=== PATIENT | female | born 1965 | race Hispanic/Latino ===

== ENCOUNTER 2017-01-28 21:31 | Inpatient (IN) | payer MEDICAID ==
[2017-01-28 21:31] VITALS: BMI 18.3
[2017-01-28 22:08] LABS: BASO # 0.1 K/uL (0.0-0.2); BASO % 0.9 % (0.0-2.0); EOS # 0.3 K/uL (0.0-0.7); EOS % 3.3 % (0.0-4.0); HEMATOCRIT 31.7 % (34.0-47.0); LYMPH # 3.4 K/uL (1.0-4.3); MEAN CELL VOLUME 88.2 fl (81.0-99.0); MEAN CORPUSCULAR HEMOGLOBIN 29.2 pg (27.0-31.0); MEAN CORPUSCULAR HGB CONC 33.1 g/dL (33.0-37.0); MEAN PLATELET VOLUME 7.6 fl (7.2-11.7); MONO # 1.1 K/uL (0.0-0.8); MONO % 13.7 % (0.0-10.0); NEUT # 3.1 K/uL (1.8-7.0); NEUT % 39.1 % (50.0-75.0); RED CELL DISTRIBUTION WIDTH 16.5 % (11.5-14.5); WHITE BLOOD COUNT 7.8 K/uL (4.8-10.8)
[2017-01-28 22:17] LABS: ALB/GLOB RATIO 1.2 (1.0-2.1); ALCOHOL SERUM 179 mg/dl (0-10); ALKALINE PHOSPHATASE 100 U/L (38-126); ALT/SGPT 26 U/L (9-52); AST/SGOT 41 U/L (14-36); BILIRUBIN,TOTAL 0.2 mg/dl (0.2-1.3); BLOOD UREA NITROGEN 14 mg/dl (7-17); CALCIUM 8.8 mg/dL (8.4-10.2); CARBON DIOXIDE 25 mmol/L (22-30); CHLORIDE 97 mmol/L (98-107); GFR AFRICAN-AMERICAN > 60; GLUCOSE,RANDOM 102 mg/dL (65-105); POTASSIUM 3.4 MMOL/L (3.6-5.0); SODIUM 133 mmol/l (132-148); TOTAL PROTEIN 7.2 G/DL (6.3-8.2)
[2017-01-28 22:47] LABS: THYROID STIMULATING HORMONE 2.25 mIU/ML (0.46-4.68)
[2017-01-28 23:12] LABS: RBC URINE 4 /hpf (0-3); URINE BACTERIA RARE (<OCC); URINE BILIRUBIN NEGATIVE (NEGATIVE); URINE BLOOD NEGATIVE (NEGATIVE); URINE COLOR STRAW (YELLOW); URINE GLUCOSE (UA) NEG (Normal); URINE KETONE NEGATIVE (NEGATIVE); URINE LEUKOCYTE ESTERASE TRACE Leu/uL (Negative); URINE PROTEIN NEGATIVE (NEGATIVE); URINE UROBILINOGEN 0.2-1.0 mg/dL (0.2-1.0); WBC URINE 1 /hpf (0-5)
--- NOTE | 2017-01-29 00:28 | ED PDOC ---
HPI: Psych/Substance Abuse Chief Complaint (Provider): anxouis Additional Complaint(s): 51-year-old female sent to ED by EMS from homeless [facility]-patient states she is very depressed and had 4-6 beers.PT is homeless admits to heavy drinking.denies SI/HI. <Marilia Buchanan - Last Filed: 01/29/17 01:51> <Loly Arriaga - Last Filed: 01/29/17 02:02> Time Seen by Provider: 01/29/17 00:01 Chief Complaint (Nursing): Chest Pain Past Medical History Reviewed: Historical Data, Nursing Documentation, Vital Signs Vital Signs: Last Vital Signs Temp 97.8 F 01/28/17 21:44 Pulse 91 H 01/28/17 22:43 Resp 28 H 01/28/17 21:44 BP 140/86 01/28/17 22:43 Pulse Ox 98 01/28/17 21:44 - Medical History PMH: Anxiety, Bipolar Disorder, CAD, Cardia Arrhythmia, Depression, HTN, Pneumonia, Schizophrenia, Seizures Denies: Diabetes, Hepatitis, HIV, Chronic Kidney Disease, Sexually Transmitted Disease - Surgical History Surgical History: Cholecystectomy - Family History Family History: States: Unknown Family Hx - Immunization History Hx Tetanus Toxoid Vaccination: No Hx Influenza Vaccination: Yes Hx Pneumococcal Vaccination: No <Marilia Buchanan - Last Filed: 01/29/17 01:51> Vital Signs: Last Vital Signs Temp 97.8 F 01/28/17 21:44 Pulse 91 H 01/28/17 22:43 Resp 28 H 01/28/17 21:44 BP 140/86 01/28/17 22:43 Pulse Ox 98 01/29/17 01:55 <Loly Arriaga - Last Filed: 01/29/17 02:02> - Home Medications Home Medications: Ambulatory Orders Medication Instructions Recorded Clopidogrel [Plavix] 75 mg PO DAILY #30 tab 01/14/17 Divalproex [Depakote DR(*BID*)] 500 mg PO BID #60 tcp 01/14/17 Divalproex [Depakote DR] 250 mg PO QPM #30 tcp 01/14/17 Gabapentin [Neurontin] 300 mg PO BID #60 cap 01/14/17 Oxybutynin [Ditropan Tab] 10 mg PO BID #60 tab 01/14/17 Gabapentin [Neurontin] 800 mg PO TID 01/28/17 traZODone [Desyrel] 150 mg PO HS 01/28/17 - Allergies Allergies/Adverse Reactions: Allergies Allergy/AdvReac Type Severity Reaction Status Date / Time FISH Allergy ITCHING Verified 01/10/17 08:59 Penicillins AdvReac URTICARIA Verified 01/10/17 08:59 Review of Systems ROS Statement: Except As Marked, All Systems Reviewed And Found Negative Gastrointestinal: Negative for: Nausea, Vomiting, Abdominal Pain <ChanelMarilia - Last Filed: 01/29/17 01:51> Physical Exam - Reviewed Nursing Documentation Reviewed: Yes Vital Signs Reviewed: Yes - Physical Exam Appears: Positive for: Non-toxic, Uncomfortable, In Acute Distress (very anxious , crying unable to control her emotional state) Head Exam: Positive for: ATRAUMATIC, NORMAL INSPECTION, NORMOCEPHALIC Skin: Positive for: Normal Color, Warm, DRY Eye Exam: Positive for: EOMI, Normal appearance, PERRL ENT: Positive for: Normal ENT Inspection Neck: Positive for: Normal, Painless ROM Cardiovascular/Chest: Positive for: Regular Rate, Rhythm Respiratory: Positive for: CNT, Normal Breath Sounds Gastrointestinal/Abdominal: Positive for: Normal Exam, Bowel Sounds, Soft Back: Positive for: Normal Inspection Extremity: Positive for: Normal ROM Neurologic/Psych: Positive for: Alert, Oriented, Mood/Affect (depressed, intoxicated) <Antionejose fMarilia - Last Filed: 01/29/17 01:51> - Laboratory Results Result Diagrams: 01/28/17 21:57 01/28/17 21:57 - ECG ECG Rhythm: Positive for: Sinus Rhythm Interpretation Of Abn EKG: prolonged QT Interpretation Of ECG: will repeat EKG rpeat EKG still shows prolonged QT. O2 Sat by Pulse Oximetry: 98 - Progress ED Course And Treament: will get labs to medically clear pt for crisis eval. Re-evaluation Time: 01:52 - Physician Consult Information Time Consulting Physican Contacted: 01:52 Physician Contacted: Cl Burr Outcome Of Conversation: Pt with significantly low magnesium level pt will need magnesium sulfate bolus at 4mg and admission to telemetry under Akilah Burr service. <Marilia Buchanan - Last Filed: 01/29/17 01:51> - Laboratory Results Result Diagrams: 01/28/17 21:57 01/28/17 21:57 <Loly Arriaga - Last Filed: 01/29/17 02:02> Medical Decision Making Medical Decision Making: pt placed on crepe maker in ED will be admitted to telemetry for severe hypo-magnesium <Marilia Buchanan - Last Filed: 01/29/17 01:51> Disposition - Patient ED Disposition Is Patient to be Admitted: Yes - Disposition Disposition Time: 01:54 - Pt Status Changed To: Hospital Disposition Of: Inpatient - Admit Certification Admit to Inpatient:: After my assessment, the patient will require hospitalization for at least two midnights. This is because of the severity of symptoms shown, intensity of services needed, and/or the medical risk in this patient being treated as an outpatient. <Marilia Buchanan - Last Filed: 01/29/17 01:51> <Loly Arriaga - Last Filed: 01/29/17 02:02> - Clinical Impression Clinical Impression: Hypomagnesemia, Prolonged QT interval - Disposition Condition: FAIR
[2017-01-29] MEDS ORDERED: Magnesium Sul 40GM/1L SW 1,000 ML IV ONE (02:36)
[2017-01-29] MEDS ORDERED: Pneumococcal 23-Valent Vaccine IM ONE (06:00)
[2017-01-29] MEDS ORDERED: Influenza Vaccine(5yr & older) 0.5 ML/45 MCG IM ONE (06:00)
[2017-01-29] MEDS: Enoxaparin 40 mg Syringe SC SCH (08:48)
[2017-01-29] MEDS: Divalproex 500 mg DR(BID formulation) PO SCH ×2 (08:50→21:51)
[2017-01-29 08:55] LABS: THYROID STIMULATING HORMONE 1.8 mIU/ML (0.46-4.68)
[2017-01-29] MEDS: levoFLOXacin 500 MG TAB PO SCH (11:52)
--- NOTE | 2017-01-29 15:13 | PCM.RRTMUL ---
LINE TENDER Nurse Assessment - Vital Signs Blood Pressure:: 159/92 Pulse Rate:: 114 Respiratory Rate:: 18 Temperature:: 97.7 F Responder Note - Time LINE TENDER was called Time LINE TENDER was called:: 14:50 - Location Location: 404-1 Discovered by:: RN Primary Physician:: Cl Burr - LINE TENDER Team LINE TENDER Leader:: Shola Marsh Resident:: Ab Regalado - Chest Pain Chest Pain:(If answer is yes, complete next 2 questions): Yes Location:: Sternal Pain Intensity: 7 - Neurological Status Neurological Status (Select all that apply):: Alert, Responsive, Oriented, Verbal, Follows Commands - Respiratory LINE TENDER Delivery Method:: Nasal Cannula @L/min (2) - Gastro-Intestinal Current Diet Ordered: Current Diet 01/29/17 Breakfast Regular Diet [DIET] Summary - Summary of Event Summary of Event: LINE TENDER CALLED FOR CHEST PAIN S: Patient is a homeless 51 yo F with PMHx of bipolar disorder, etoh abuse, HTN , CAD, Seizures that was admitted for severe hypo-magnesium/prolonged QT interval that has been having chest pressure/pain that was present in ED, and worsened prior to LINE TENDER. Patient states some shortness of breath and feels very anxious. Patient's pain is 7/10 non-radiating, worse with deep breathing. Patient has been having a cough for about a week, states hacking. Patient's admitting doctor, Dr. Burr, ordered CXR and levaquin was started. Patient's hypo -magnesium improved with treatment. O: Vitals stable except for BP 190/110 General: Mild distress, anxious appearing Head: normocephalic, atraumatic Cardio: RRR, S1/S2 present, no m/r/g Lungs: CTABL, no wheezes/rales Chest: tenderness to palpation of left sternal border Abdomen: soft, non-distended, BS+ Extremities: no edema A/P: 51 yo F with PMHx of bipolar disorder, etoh abuse, HTN, CAD, Seizures with chest pain likely due to musculoskeletal origin possibly from excessive coughing. - EKG Stat : NSR, no acute changes or prolonged qt - Troponin STAT - O2 via NC @ 2L - Thiamine/folic acid supplementation - Hydralazine 10mg x 2, BP improved to 160/90 - Ativan 1mg PO stat - Morphine 1mg IVP stat - Patient's pain/symptoms improved as well as BP. - Dr. Burr notified All above discussed and evaluated with [id number].
[2017-01-29] MEDS: Divalproex 250 mg DR(BID formulation) PO SCH ×2 (16:39→17:32)
[2017-01-30 07:09] LABS: HEMATOCRIT 32.8 % (34.0-47.0); MEAN CELL VOLUME 88.8 fl (81.0-99.0); MEAN CORPUSCULAR HEMOGLOBIN 29.3 pg (27.0-31.0); RED CELL DISTRIBUTION WIDTH 16.7 % (11.5-14.5); WHITE BLOOD COUNT 6.6 K/uL (4.8-10.8)
[2017-01-30 07:20] LABS: ALB/GLOB RATIO 1.1 (1.0-2.1); ALKALINE PHOSPHATASE 59 U/L (38-126); ALT/SGPT 25 U/L (9-52); AST/SGOT 27 U/L (14-36); BILIRUBIN,TOTAL 0.4 mg/dl (0.2-1.3); BLOOD UREA NITROGEN 13 mg/dl (7-17); CALCIUM 8.8 mg/dL (8.4-10.2); CARBON DIOXIDE 27 mmol/L (22-30); CHLORIDE 100 mmol/L (98-107); GFR AFRICAN-AMERICAN > 60; GLUCOSE,RANDOM 88 mg/dL (65-105); POTASSIUM 4.1 MMOL/L (3.6-5.0); SODIUM 132 mmol/l (132-148); TOTAL PROTEIN 6.2 G/DL (6.3-8.2)
[2017-01-30] MEDS: Divalproex 500 mg DR(BID formulation) PO SCH ×2 (08:55→21:18)
[2017-01-30] MEDS: levoFLOXacin 500 MG TAB PO SCH (08:58)
[2017-01-30] MEDS: Enoxaparin 40 mg Syringe SC SCH (08:59)
--- NOTE | 2017-01-30 10:16 | RAD ---
HISTORY: chest discomfort COMPARISON: No prior. TECHNIQUE: Chest PA and lateral FINDINGS: LUNGS: Poor inspiration with low lung volumes crowded bronchovascular markings and mild bibasilar atelectasis PLEURA: No significant pleural effusion identified. No pneumothorax apparent. CARDIOVASCULAR: Normal. OSSEOUS STRUCTURES: Chronic appearing anterior wedge deformity of several thoracic segments. Mild multilevel degenerative spondylosis of the thoracic spine VISUALIZED UPPER ABDOMEN: Normal. OTHER FINDINGS: None. IMPRESSION: Poor inspiration with low lung volumes crowded bronchovascular markings and mild bibasilar atelectasis
--- NOTE | 2017-01-30 10:43 | PN ---
DATE: 01/30/2017 The patient seen and examined. Interim events noted. The patient feels much better, substantively i mproved. No chest pain, no shortness of breath. PHYSICAL EXAMINATION: . HEART: S1, S2 normal, regular. LUNGS: Good bilateral air exchange. ABDOMEN: Soft, nontender. EXTREMITIES: No calf swelling, no tenderness, no acute ischemia. CENTRAL NERVOUS SYSTEM: Essentially unchanged. DIAGNOSTIC DATA: Telemetry monitoring does not show any arrhythmias. The patient's general condition is slowly improving. PLAN: As ordered. Cl Burr MD cc: [id number] TT: 01/30/2017 10:42:41 Confirmation # [id number] Dictation # [id number] [email or web address]
[2017-01-30] MEDS: Divalproex 250 mg DR(BID formulation) PO SCH (17:28)
--- NOTE | 2017-01-30 20:13 | CARD ---
APPROVED REPORT EKG Measurement Heart [id number] HI [id number] <Conclusion> Normal sinus rhythm Normal ECG
[2017-01-31 06:55] LABS: HEMATOCRIT 31.5 % (34.0-47.0); MEAN CELL VOLUME 88.3 fl (81.0-99.0); MEAN CORPUSCULAR HEMOGLOBIN 29.5 pg (27.0-31.0); MEAN CORPUSCULAR HGB CONC 33.4 g/dL (33.0-37.0); RED CELL DISTRIBUTION WIDTH 16.7 % (11.5-14.5); WHITE BLOOD COUNT 5.3 K/uL (4.8-10.8)
[2017-01-31 07:30] LABS: ALKALINE PHOSPHATASE 57 U/L (38-126); ALT/SGPT 23 U/L (9-52); AST/SGOT 28 U/L (14-36); BILIRUBIN,TOTAL 0.2 mg/dl (0.2-1.3); BLOOD UREA NITROGEN 16 mg/dl (7-17); CALCIUM 8.7 mg/dL (8.4-10.2); CARBON DIOXIDE 24 mmol/L (22-30); CHLORIDE 98 mmol/L (98-107); GFR AFRICAN-AMERICAN > 60; GLUCOSE,RANDOM 85 mg/dL (65-105); POTASSIUM 4.3 MMOL/L (3.6-5.0); SODIUM 127 mmol/l (132-148); TOTAL PROTEIN 5.9 G/DL (6.3-8.2)
--- NOTE | 2017-01-31 08:02 | PN ---
DATE: 01/31/2017 The patient seen and examined. Interim events noted. The patient remains in progressive care unit o n telemetry monitoring. The patient is sleeping, arousable. Feels better. Cough improved. No ches t pain or shortness of breath. PHYSICAL EXAMINATION: GENERAL: The patient is in no acute distress. VITAL SIGNS: Stable. HEART: S1, S2 normal, regular. LUNGS: Good bilateral air exchange. ABDOMEN: Soft, nontender. EXTREMITIES: No edema, no calf swelling, no tenderness, no acute ischemia. CENTRAL NERVOUS SYSTEM: Essentially unchanged. DIAGNOSTIC DATA: Available diagnostic data reviewed. Overall, patient's general medical condition is stable. PLAN: As ordered. Cl Burr MD cc: [id number] TT: 01/31/2017 08:01:38 Confirmation # [id number] Dictation # [id number] [email or web address]
--- NOTE | 2017-01-31 08:31 | HP ---
CHIEF COMPLAINT: Very anxious. HISTORY OF PRESENT ILLNESS: This is a 51-year-old female who was brought to the Emergency Room from a homeless intermediate after found being very anxious. During workup in the Emergency Room, the patient was found to have a magnesium level less than , so the patient was admitted for further manageme nt. Currently, the patient complains of sore throat, cough, and anxiety. REVIEW OF SYSTEMS: Otherwise, is negative for headache, dizziness, syncope, loss of consciousness, c hest pain, shortness of breath, nausea, vomiting, diarrhea, constipation, any new joint or extremity pain. Review of systems of all other organ systems is unremarkable except psych where the patient do es feel anxious. PAST MEDICAL HISTORY: Significant for anxiety, bipolar disorder, hypertension, depression, cardiac a rrhythmia, coronary artery disease, schizophrenia, and seizures. PAST SURGICAL HISTORY: Remarkable for cholecystectomy. FAMILY HISTORY: Noncontributory. PERSONAL HISTORY: The patient is homeless and lives in a intermediate. ALLERGIES: The patient is not allergic to any medications. MEDICATIONS: The patient is on multiple medications, which is as per reconciliation sheet, which was reviewed and ordered. PHYSICAL EXAMINATION: GENERAL: Well-built, well-nourished 51-year-old female in no acute distress. VITAL SIGNS: Temperature 97.7, pulse 100, respiration 18, blood pressure 159/92, saturation 97%. HEENT: Pupils reacting to light. NECK: No JVD, no thyromegaly, no lymphadenopathy, no nystagmus. Normocephalic, atraumatic skull. HEART: S1, S2 normal, regular, tachycardic. No significant murmur, gallop, or rub is heard. LUNGS: Shows good bilateral air exchange. No rales or rhonchi. ABDOMEN: Soft, nontender, no organomegaly, no fluid. Bowel sounds are positive. EXTREMITIES: No edema, no calf swelling, no tenderness, no acute ischemia. CENTRAL NERVOUS SYSTEM: Essentially unchanged. DIAGNOSTIC DATA: Available diagnostic data reviewed. Magnesium level was less than . WBC 7.8, hemoglobin 10.5, hematocrit 31.7, platelets 230. Sodium 132, potassium 3.4, chloride 97, bicarbonat e 25, BUN 14, creatinine 0.7. SMA-12 is unremarkable. Urinalysis is negative. Toxicology is negati ve. Depakote level is 35.7. Alcohol level is 179. ADMITTING IMPRESSION: Hypomagnesemia. Alcohol abuse, watch for DTs, bipolar disorder, hypertension, coronary artery disease, cardiac arrhythmias. Telemetry monitoring does not reveal significant arrhythmias. PLAN: As ordered. Cl Burr MD cc: [id number] TT: 01/29/2017 16:54:41 ln
[2017-01-31] MEDS: Enoxaparin 40 mg Syringe SC SCH (09:15)
[2017-01-31] MEDS: levoFLOXacin 500 MG TAB PO SCH (09:15)
[2017-01-31] MEDS: Divalproex 500 mg DR(BID formulation) PO SCH ×2 (09:18→20:11)
--- NOTE | 2017-01-31 11:02 | CP.PCM.CON ---
History of Present Illness - History of Present Illness History of Present Illness: Psychiatry consult note called for evaluation of suicidal ideation HPI: 51-year-old female with extensive history of alcohol abuse and cocaine abuse, h/o bipolar disorder vs borderline personality disorder , presented to the ED with chest pain, found to be hyponatremic, had 10 admissions since September 2016 for various reasons, including alcohol abuse, cocaine abuse. Patient does not report any active suicidal ideation/plan/ intent. She does express a desire to stay in the hospital until ( possibly secondary to homelessness and impending blizzard). She reports that she drank alcohol two days ago and feels like a failure. Patient is requesting Ativan, stating that it makes her feel better. Patient acknowledges that another psychiatric admission will likely not benefit her as her stress is due to homelessness, poverty, substance abuse and family problems. Past psychiatric history: She was diagnosed with bipolar disorder, but given her history, her presentation is more likely borderline personality disorder with alcohol and cocaine abuse. The patient has history of more than 10 inpatient psychiatric hospitalizations and one incomplete attempt in the past when patient tried to hang herself. Patient also has a long history of etoh abuse. Patients longest period of sobriety is from [id number]. As per the patient she has completed a 9 month stay at [facility] 3 years ago. Past medical history: History of coronary artery disease. Family psych history: Depression and anxiety; uncle committed suicide. Social history: +adult children, currently homeless and living at a [facility] with her boyfriend. She is unemployed. +Extensive history of alcohol abuse and cocaine abuse. MSE: Alert and oriented x 3, good eye contact, thought process-linear/coherent, speech- normal rate/rhythm/volume, thought content- no delusions/paranoia. No hallucinations. No suicidal ideation/plan/intent. No homicidal ideation plan/ intent. Insight/judgment poor re: chronic alcohol and cocaine abuse. Impression: 51-year-old female with extensive history of alcohol abuse and cocaine abuse, h/o bipolar disorder vs borderline personality disorder, presented to the ED with chest pain, found to be hyponatremic, had 10 admissions since September 2016 for various reasons, including alcohol abuse, cocaine abuse. Patient likely seeking psychiatric admission for the secondary gain of housing/food due to homelessness. Her primary illness is Alcohol abuse and likely borderline personality disorder. She is not reporting any active suicidal ideation/plan/intent at this time. Recommendations: -Would continue current psychotropic medications -Patient does not need inpatient psychiatric treatment at this time; patient has intensive outpatient program scheduled to start on -Re-consult w/ further questions Past Patient History - Infectious Disease Hx of Infectious Diseases: None - Past Medical History & Family History Past Medical History?: Yes - Past Social History Smoking Status: Light Smoker < 10 Cigarettes Daily - CARDIAC Hx Cardiac Disorders: Yes Hx Cardia Arrhythmia: Yes Hx Heart Attack: Yes (2007) Hx Hypertension: Yes - PULMONARY Hx Pneumonia: Yes - NEUROLOGICAL Hx Seizures: Yes - HEENT Hx HEENT Problems: No - RENAL Hx Chronic Kidney Disease: No - ENDOCRINE/METABOLIC Hx Endocrine Disorders: No - HEMATOLOGICAL/ONCOLOGICAL Hx AIDS: No Hx Blood Transfusions: No Hx Human Immunodeficiency Virus (HIV): No - INTEGUMENTARY Hx Dermatological Problems: No - MUSCULOSKELETAL/RHEUMATOLOGICAL Hx Falls: Yes Hx Fractures: Yes (right wrist due to fall) - GASTROINTESTINAL Hx Gastrointestinal Disorders: No - GENITOURINARY/GYNECOLOGICAL Hx Sexually Transmitted Disorders: No - PSYCHIATRIC Hx Psychophysiologic Disorder: Yes Hx Anxiety: Yes Hx Bipolar Disorder: Yes Hx Depression: Yes Hx Substance Use: Yes (cocaine) - SURGICAL HISTORY Hx Surgeries: Yes Hx Cholecystectomy: Yes Hx Tubal Ligation: Yes - ANESTHESIA Hx Anesthesia: Yes Hx Anesthesia Reactions: No Hx Malignant Hyperthermia: No Meds Allergies/Adverse Reactions: Allergies Allergy/AdvReac Type Severity Reaction Status Date / Time FISH Allergy ITCHING Verified 01/10/17 08:59 Penicillins AdvReac URTICARIA Verified 01/10/17 08:59 - Medications Medications: Current Medications Chlordiazepoxide (Librium) 25 mg PO Q6 [facility] Last Admin: 01/31/17 10:14 Dose: 25 mg Clopidogrel Bisulfate (Plavix) 75 mg PO DAILY [facility] Last Admin: 01/31/17 09:18 Dose: 75 mg Divalproex Sodium (Depakote Dr(*Bid*)) 250 mg PO QPM [facility] Last Admin: 01/30/17 17:28 Dose: 250 mg Divalproex Sodium (Depakote Dr(*Bid*)) 500 mg PO Q12 [facility] Last Admin: 01/31/17 09:18 Dose: 500 mg Enoxaparin Sodium (Lovenox) 40 mg SC DAILY [facility] PRN Reason: Protocol Last Admin: 01/31/17 09:15 Dose: 40 mg Folic Acid (Folic Acid) 1 mg PO DAILY [facility] Last Admin: 01/30/17 08:56 Dose: 1 mg Gabapentin (Neurontin) 800 mg PO TID [facility] Last Admin: 01/31/17 09:15 Dose: 800 mg Ibuprofen (Motrin Tab) 400 mg PO Q6 PRN PRN Reason: Pain, Mild (1-3) Last Admin: 01/30/17 16:40 Dose: 400 mg Levofloxacin (Levaquin) 500 mg PO DAILY [facility] Stop: 02/02/17 11:55 Last Admin: 01/31/17 09:15 Dose: 500 mg Oxybutynin Chloride (Ditropan Tab) 10 mg PO BID [facility] Last Admin: 01/31/17 09:15 Dose: 10 mg Thiamine HCl (Vitamin B1 Tab) 100 mg PO DAILY [facility] Last Admin: 01/31/17 09:19 Dose: 100 mg Trazodone HCl (Desyrel) 150 mg PO HS [facility] Last Admin: 01/30/17 21:18 Dose: 150 mg Results - Vital Signs Recent Vital Signs: Last Vital Signs Temp 97.8 F 01/31/17 08:00 Pulse 66 01/31/17 08:00 Resp 20 01/31/17 08:00 BP 130/77 01/31/17 08:00 Pulse Ox 95 01/31/17 08:00 - Labs Result Diagrams: 01/31/17 06:05 01/31/17 06:05 Labs: Laboratory Results - last 24 hr 01/31/17 06:05 WBC 5.3 RBC 3.57 L Hgb 10.5 L Hct 31.5 L MCV 88.3 MCH 29.5 MCHC 33.4 RDW 16.7 H Plt Count 194 Sodium 127 L Potassium 4.3 Chloride 98 Carbon Dioxide 24 Anion Gap 9 L BUN 16 Creatinine 0.6 L Est GFR ( Amer) > 60 Est GFR (Non-Af Amer) > 60 Random Glucose 85 Calcium 8.7 Total Bilirubin 0.2 AST 28 ALT 23 Alkaline Phosphatase 57 Total Protein 5.9 L Albumin 3.0 L Globulin 2.9 Albumin/Globulin Ratio 1.0
[2017-01-31] MEDS: Divalproex 250 mg DR(BID formulation) PO SCH (18:16)
[2017-02-01] MEDS: Divalproex 500 mg DR(BID formulation) PO SCH ×2 (08:59→21:13)
[2017-02-01] MEDS: Enoxaparin 40 mg Syringe SC SCH (09:02)
[2017-02-01] MEDS: levoFLOXacin 500 MG TAB PO SCH (09:02)
[2017-02-01 10:46] LABS: BLOOD UREA NITROGEN 22 mg/dl (7-17); CALCIUM 8.5 mg/dL (8.4-10.2); CARBON DIOXIDE 24 mmol/L (22-30); CHLORIDE 97 mmol/L (98-107); GFR AFRICAN-AMERICAN > 60; GLUCOSE,RANDOM 96 mg/dL (65-105); POTASSIUM 4.2 MMOL/L (3.6-5.0); SODIUM 127 mmol/l (132-148)
--- NOTE | 2017-02-01 11:17 | PQF GENQUE ---
This form is a permanent part of the medical record 02/01/17 , Would you please clarify if there is an associated diagnosis or not to go along with the NA level of 127. Clarification of your documentation is requested to better reflect the severity of illness and intensity of treatment of your patient. PHYSICIAN'S RESPONSE Based on your medical judgment of the clinical indicators outlined above please clarify the following: [] Practitioner response [] If unable to determine, please check the box, sign and date. Present On Admission (POA) Indicator: [] Present at the time of admission [] Not present at the time of admission [] Clinically Undetermined In responding to this query, please exercise your independent professional judgment. The fact that a question is asked does not imply that any particular answer is desired or expected. Thank you for your clarification on this documentation. If you have any questions please call:[phone] * Thank you, Alisson Vaughn RN [facility]
--- NOTE | 2017-02-01 12:28 | CP.PCM.PN ---
Subjective - Date & Time of Evaluation Date of Evaluation: 02/01/17 Time of Evaluation: 08:00 - Subjective Subjective: Pt seen and examined at bedside, laying in bed comfortably, states she feels depressed and has a program for it. Objective - Vital Signs/Intake and Output Vital Signs (last 24 hours): Temp Pulse Resp BP Pulse Ox 98.7 F 65 20 111/65 97 02/01/17 08:24 02/01/17 09:00 02/01/17 08:24 02/01/17 08:24 02/01/17 08:24 - Medications Medications: Current Medications Chlordiazepoxide (Librium) 25 mg PO Q8 [facility] Clopidogrel Bisulfate (Plavix) 75 mg PO DAILY [facility] Last Admin: 02/01/17 09:03 Dose: 75 mg Divalproex Sodium (Depakote Dr(*Bid*)) 250 mg PO QPM [facility] Last Admin: 01/31/17 18:16 Dose: 250 mg Divalproex Sodium (Depakote Dr(*Bid*)) 500 mg PO Q12 [facility] Last Admin: 02/01/17 08:59 Dose: 500 mg Enoxaparin Sodium (Lovenox) 40 mg SC DAILY [facility] PRN Reason: Protocol Last Admin: 02/01/17 09:02 Dose: 40 mg Folic Acid (Folic Acid) 1 mg PO DAILY [facility] Last Admin: 02/01/17 09:02 Dose: 1 mg Gabapentin (Neurontin) 800 mg PO TID [facility] Last Admin: 02/01/17 09:02 Dose: 800 mg Ibuprofen (Motrin Tab) 400 mg PO Q6 PRN PRN Reason: Pain, Mild (1-3) Last Admin: 02/01/17 09:03 Dose: 400 mg Levofloxacin (Levaquin) 500 mg PO DAILY [facility] Stop: 02/02/17 11:55 Last Admin: 02/01/17 09:02 Dose: 500 mg Oxybutynin Chloride (Ditropan Tab) 10 mg PO BID [facility] Last Admin: 02/01/17 09:00 Dose: 10 mg Thiamine HCl (Vitamin B1 Tab) 100 mg PO DAILY [facility] Last Admin: 02/01/17 09:03 Dose: 100 mg Trazodone HCl (Desyrel) 150 mg PO HS [facility] Last Admin: 01/31/17 21:21 Dose: 150 mg - Labs Labs: 01/31/17 06:05 02/01/17 09:55 - Constitutional Appears: Non-toxic, No Acute Distress - Respiratory Exam Respiratory Exam: Clear to Ausculation Bilateral, NORMAL BREATHING PATTERN - Cardiovascular Exam Cardiovascular Exam: REGULAR RHYTHM, +S1, +S2 - GI/Abdominal Exam GI & Abdominal Exam: Soft, Normal Bowel Sounds - Extremities Exam Extremities Exam: absent: Calf Tenderness, Joint Swelling, Pedal Edema, Tenderness - Neurological Exam Neurological Exam: Awake, Oriented x3 - Psychiatric Exam Psychiatric exam: Flat Affect Assessment and Plan - Assessment and Plan (Free Text) Assessment: 51 y.o female admitted for hypomagnesium and depression Plan: 1. Hypomagnesium - level now elevated will monitor and repeat level in the am 2. Depression psy consult appreciated will continue with plan manage as ordered diet-heart healthy dvt prophylaxis lovenox SC 40mg
[2017-02-01] MEDS: Divalproex 250 mg DR(BID formulation) PO SCH (17:54)
[2017-02-02 06:40] LABS: MEAN CELL VOLUME 89.4 fl (81.0-99.0); MEAN CORPUSCULAR HEMOGLOBIN 29.3 pg (27.0-31.0); MEAN CORPUSCULAR HGB CONC 32.8 g/dL (33.0-37.0); RED CELL DISTRIBUTION WIDTH 16.5 % (11.5-14.5); WHITE BLOOD COUNT 5.4 K/uL (4.8-10.8)
[2017-02-02 06:44] LABS: ALKALINE PHOSPHATASE 65 U/L (38-126); ALT/SGPT 22 U/L (9-52); AST/SGOT 26 U/L (14-36); BILIRUBIN,TOTAL 0.1 mg/dl (0.2-1.3); BLOOD UREA NITROGEN 22 mg/dl (7-17); CALCIUM 8.3 mg/dL (8.4-10.2); CARBON DIOXIDE 24 mmol/L (22-30); CHLORIDE 96 mmol/L (98-107); GFR AFRICAN-AMERICAN > 60; GLUCOSE,RANDOM 85 mg/dL (65-105); MAGNESIUM 1.8 MG/DL (1.6-2.3); POTASSIUM 4.1 MMOL/L (3.6-5.0); SODIUM 129 mmol/l (132-148); TOTAL PROTEIN 5.7 G/DL (6.3-8.2)
--- NOTE | 2017-02-02 09:22 | CP.PCM.CON ---
History of Present Illness - History of Present Illness History of Present Illness: 51-year-old female sent to ED by EMS from homeless long-term- patient states she is very depressed and had 4-6 beers .PT is homeless admits to heavy drinking.denies SI/HI. PMH: Anxiety, Bipolar Disorder, Depression, HTN, Pneumonia, Schizophrenia, Seizures - Surgical History Surgical History: Cholecystectomy EKG: normal Troponin: neg Pt claims she had chest pressure prior to admission alleviated when she got to the ER Says she had a Heart Attack 5-6 years ago refused catherization has had no chest pain since then Past Patient History - Infectious Disease Hx of Infectious Diseases: None - Past Medical History & Family History Past Medical History?: Yes - Past Social History Smoking Status: Light Smoker < 10 Cigarettes Daily - CARDIAC Hx Cardiac Disorders: Yes Hx Cardia Arrhythmia: Yes Hx Heart Attack: Yes (2007) Hx Hypertension: Yes - PULMONARY Hx Pneumonia: Yes - NEUROLOGICAL Hx Seizures: Yes - HEENT Hx HEENT Problems: No - RENAL Hx Chronic Kidney Disease: No - ENDOCRINE/METABOLIC Hx Endocrine Disorders: No - HEMATOLOGICAL/ONCOLOGICAL Hx AIDS: No Hx Blood Transfusions: No Hx Human Immunodeficiency Virus (HIV): No - INTEGUMENTARY Hx Dermatological Problems: No - MUSCULOSKELETAL/RHEUMATOLOGICAL Hx Falls: Yes Hx Fractures: Yes (right wrist due to fall) - GASTROINTESTINAL Hx Gastrointestinal Disorders: No - GENITOURINARY/GYNECOLOGICAL Hx Sexually Transmitted Disorders: No - PSYCHIATRIC Hx Psychophysiologic Disorder: Yes Hx Anxiety: Yes Hx Bipolar Disorder: Yes Hx Depression: Yes Hx Substance Use: Yes (cocaine) - SURGICAL HISTORY Hx Surgeries: Yes Hx Cholecystectomy: Yes Hx Tubal Ligation: Yes - ANESTHESIA Hx Anesthesia: Yes Hx Anesthesia Reactions: No Hx Malignant Hyperthermia: No Meds Allergies/Adverse Reactions: Allergies Allergy/AdvReac Type Severity Reaction Status Date / Time FISH Allergy ITCHING Verified 01/10/17 08:59 Penicillins AdvReac URTICARIA Verified 01/10/17 08:59 - Medications Medications: Current Medications Chlordiazepoxide (Librium) 25 mg PO Q8 [facility] Last Admin: 02/02/17 05:46 Dose: Not Given Clopidogrel Bisulfate (Plavix) 75 mg PO DAILY [facility] Last Admin: 02/01/17 09:03 Dose: 75 mg Divalproex Sodium (Depakote Dr(*Bid*)) 250 mg PO QPM [facility] Last Admin: 02/01/17 17:54 Dose: 250 mg Divalproex Sodium (Depakote Dr(*Bid*)) 500 mg PO Q12 [facility] Last Admin: 02/01/17 21:13 Dose: 500 mg Enoxaparin Sodium (Lovenox) 40 mg SC DAILY [facility] PRN Reason: Protocol Last Admin: 02/01/17 09:02 Dose: 40 mg Folic Acid (Folic Acid) 1 mg PO DAILY [facility] Last Admin: 02/01/17 09:02 Dose: 1 mg Gabapentin (Neurontin) 800 mg PO TID [facility] Last Admin: 02/01/17 16:44 Dose: 800 mg Ibuprofen (Motrin Tab) 400 mg PO Q6 PRN PRN Reason: Pain, Mild (1-3) Last Admin: 02/01/17 16:45 Dose: 400 mg Levofloxacin (Levaquin) 500 mg PO DAILY [facility] Stop: 02/02/17 11:55 Last Admin: 02/01/17 09:02 Dose: 500 mg Oxybutynin Chloride (Ditropan Tab) 10 mg PO BID [facility] Last Admin: 02/01/17 16:44 Dose: 10 mg Thiamine HCl (Vitamin B1 Tab) 100 mg PO DAILY [facility] Last Admin: 02/01/17 09:03 Dose: 100 mg Trazodone HCl (Desyrel) 150 mg PO HS [facility] Last Admin: 02/01/17 21:14 Dose: 150 mg Results - Vital Signs Recent Vital Signs: Last Vital Signs Temp 97.5 F L 02/02/17 08:00 Pulse 65 02/02/17 08:00 Resp 20 02/02/17 08:00 BP 133/83 02/02/17 08:00 Pulse Ox 96 02/02/17 08:00 - Labs Result Diagrams: 02/02/17 06:00 02/02/17 06:00 Labs: Laboratory Results - last 24 hr 02/01/17 02/02/17 09:55 06:00 WBC 5.4 RBC 3.47 L Hgb 10.2 L Hct 31.0 L MCV 89.4 MCH 29.3 MCHC 32.8 L RDW 16.5 H Plt Count 188 Sodium 127 L 129 L Potassium 4.2 4.1 Chloride 97 L 96 L Carbon Dioxide 24 24 Anion Gap 10 13 BUN 22 H 22 H Creatinine 0.6 L 0.6 L Est GFR ( Amer) > 60 > 60 Est GFR (Non-Af Amer) > 60 > 60 Random Glucose 96 85 Calcium 8.5 8.3 L Magnesium 1.8 1.8 Total Bilirubin 0.1 L AST 26 ALT 22 Alkaline Phosphatase 65 Total Protein 5.7 L Albumin 2.9 L Globulin 2.9 Albumin/Globulin Ratio 1.0 Assessment & Plan (1) Alcohol abuse Status: Removed (3) Alcohol intoxication Status: Acute (4) Muscle strain of chest wall Assessment and Plan: Doubt that this episode of chest pain is cardiac in origin if symptoms continue would suggest stress test as outpt Status: Acute
[2017-02-02] MEDS: Enoxaparin 40 mg Syringe SC SCH ×2 (10:18→11:39)
[2017-02-02] MEDS: Divalproex 500 mg DR(BID formulation) PO SCH ×2 (10:19→21:32)
[2017-02-02] MEDS: levoFLOXacin 500 MG TAB PO SCH (10:22)
--- NOTE | 2017-02-02 12:06 | RAD ---
HISTORY: coughing blood COMPARISON: No prior. TECHNIQUE: Chest PA and lateral FINDINGS: LUNGS: No active pulmonary disease. PLEURA: No significant pleural effusion identified. No pneumothorax apparent. CARDIOVASCULAR: Normal. OSSEOUS STRUCTURES: No significant abnormalities. VISUALIZED UPPER ABDOMEN: Normal. OTHER FINDINGS: None. IMPRESSION: No active disease.
--- NOTE | 2017-02-02 12:29 | CP.PCM.PN ---
Subjective - Date & Time of Evaluation Date of Evaluation: 02/02/17 Time of Evaluation: 08:20 - Subjective Subjective: Pt seen and examined at bedside this morning with Dr. Burr, pt stated this morning, chest pain has improved but not completely resolved, and was doing well. denies coughing, sob, abdominal pain, headache. stated she wanted to be discharged to the psy telles at [facility] as she needed to get her mind right. Later this morning, i was paged by nurse as pt reports coughing up blood specs, nurse did not observe pt actually coughing up the blood, but states she showed her a blood stain tissue. She was also seen by cardiology this morning, where she reported she has not had chest pain since admission. Objective - Vital Signs/Intake and Output Vital Signs (last 24 hours): Temp Pulse Resp BP Pulse Ox 97.5 F L 65 20 133/83 96 02/02/17 08:00 02/02/17 09:00 02/02/17 08:00 02/02/17 08:00 02/02/17 08:00 - Medications Medications: Current Medications Chlordiazepoxide (Librium) 25 mg PO Q8 [facility] Last Admin: 02/02/17 10:23 Dose: Not Given Clopidogrel Bisulfate (Plavix) 75 mg PO DAILY [facility] Last Admin: 02/02/17 10:18 Dose: 75 mg Divalproex Sodium (Depakote Dr(*Bid*)) 250 mg PO QPM [facility] Last Admin: 02/01/17 17:54 Dose: 250 mg Divalproex Sodium (Depakote Dr(*Bid*)) 500 mg PO Q12 [facility] Last Admin: 02/02/17 10:19 Dose: 500 mg Enoxaparin Sodium (Lovenox) 40 mg SC DAILY [facility] PRN Reason: Protocol Last Admin: 02/02/17 11:39 Dose: Not Given Folic Acid (Folic Acid) 1 mg PO DAILY [facility] Last Admin: 02/02/17 10:21 Dose: 1 mg Gabapentin (Neurontin) 800 mg PO TID [facility] Last Admin: 02/02/17 10:19 Dose: 800 mg Ibuprofen (Motrin Tab) 400 mg PO Q6 PRN PRN Reason: Pain, Mild (1-3) Last Admin: 02/01/17 16:45 Dose: 400 mg Oxybutynin Chloride (Ditropan Tab) 10 mg PO BID [facility] Last Admin: 02/02/17 10:20 Dose: 10 mg Thiamine HCl (Vitamin B1 Tab) 100 mg PO DAILY [facility] Last Admin: 02/02/17 10:24 Dose: 100 mg Trazodone HCl (Desyrel) 150 mg PO HS [facility] Last Admin: 02/01/17 21:14 Dose: 150 mg - Labs Labs: 02/02/17 06:00 02/02/17 06:00 - Constitutional Appears: Non-toxic, No Acute Distress - Head Exam Head Exam: NORMOCEPHALIC - Eye Exam Eye Exam: Normal appearance - ENT Exam ENT Exam: Mucous Membranes Moist - Respiratory Exam Respiratory Exam: Clear to Ausculation Bilateral, NORMAL BREATHING PATTERN. absent: Rhonchi, Wheezes - Cardiovascular Exam Cardiovascular Exam: REGULAR RHYTHM, +S1, +S2 - GI/Abdominal Exam GI & Abdominal Exam: Soft, Normal Bowel Sounds. absent: Tenderness - Extremities Exam Extremities Exam: Full ROM. absent: Calf Tenderness - Neurological Exam Neurological Exam: Alert, Awake, CN II-XII Intact, Oriented x3 Assessment and Plan - Assessment and Plan (Free Text) Assessment: 51 y.o female admitted for hypomagnesium and depression Plan: 1. Hypomagnesium Resolved 2. coughing out blood spec chest xray ordered lovenox on hold will monitor 2. Depression psy consult appreciated will continue with plan manage as ordered diet-heart healthy dvt prophylaxis scds
[2017-02-02] MEDS: Divalproex 250 mg DR(BID formulation) PO SCH (17:23)
[2017-02-02 21:10] VITALS: O2SAT 95
[2017-02-03 08:14] VITALS: BP 127/80; PULSE 70; RESP 18; TEMP 97.7
--- NOTE | 2017-02-03 10:06 | PCM.PYCHPN ---
Psychiatric Progress Note - Psychiatric Progress Note Patient seen today, length of contact: Patient evaluated, chart reviewed Patient Chief Complaint: "I'm too nervous to leave" Problems Identified/Issues Discussed: Patient reports that she feels too nervous to leave the hospital. Leaf Size Picker informed her that that is not an indication for continued hospitalization and that she should continue to follow-up as an outpatient today as she told underwriter mortgage loan on Tuesday that she had an appointment today. No AH/VH/SI/HI. Patient is resisting being discharged from the hospital likely for secondary gain as she is homeless and has an extensive history of alcohol abuse. Medication Change: No Medical Record Reviewed: Yes Mental Status Examination - Cognitive Function Orientation: Person, Place, Situation, Time Memory: Intact Attention: WNL Concentration: WNL Association: WNL Fund of Knowledge: WNL - Mood Mood: Anxious - Affect Affect: Broad - Speech Speech: Appropriate - Formal Thought Process Formal Thought Process: No Impairment Psychotic Thoughts and Behaviors: NO AH/VH/paranoia/delusions - Suicidal Ideation Suicidal Ideation: No - Homicidal Ideation Homicidal Ideation: No Goal/Treatment Plan - Goal/Treatment Plan Progress Toward Problem(s) and Goals/Treatment Plan: Impression: 51-year-old female with extensive history of alcohol abuse and cocaine abuse, h/o bipolar disorder vs borderline personality disorder, presented to the ED with chest pain, found to be hyponatremic, had 10 admissions since September 2016 for various reasons, including alcohol abuse, cocaine abuse. Patient likely seeking continued hospitalization for the secondary gain of housing/food due to homelessness. Her primary illness is Alcohol abuse and likely borderline personality disorder. She is not reporting any active suicidal ideation/plan/intent at this time. Recommendations: -Would continue current psychotropic medications -Patient does not need inpatient psychiatric treatment at this time; patient can follow-up as an outpatient -If patient is medically stable, there is no reason to further keep her in the hospital Estimated Date of D/C: 02/03/17
--- NOTE | 2017-02-03 10:29 | CP.PCM.DIS ---
Provider - Provider Date of Admission: 01/29/17 02:00 Attending physician: Cl Burr MD Time Spent in preparation of Discharge (in minutes): 30 Diagnosis - Discharge Diagnosis (1) Hypomagnesemia Status: Acute Hospital Course - Lab Results Lab Results: Most Recent Lab Values WBC 5.4 K/uL (4.8-10.8) 02/02/17 06:00 RBC 3.47 Mil/uL (3.80-5.20) L 02/02/17 06:00 Hgb 10.2 g/dL (12.0-16.0) L 02/02/17 06:00 Hct 31.0 % (34.0-47.0) L 02/02/17 06:00 MCV 89.4 fl (81.0-99.0) 02/02/17 06:00 MCH 29.3 pg (27.0-31.0) 02/02/17 06:00 MCHC 32.8 g/dL (33.0-37.0) L 02/02/17 06:00 RDW 16.5 % (11.5-14.5) H 02/02/17 06:00 Plt Count 188 K/uL (130-400) 02/02/17 06:00 MPV 7.6 fl (7.2-11.7) 01/28/17 21:57 Neut % (Auto) 39.1 % (50.0-75.0) L 01/28/17 21:57 Lymph % (Auto) 43.0 % (20.0-40.0) H 01/28/17 21:57 [place] % (Auto) 13.7 % (0.0-10.0) H 01/28/17 21:57 Eos % (Auto) 3.3 % (0.0-4.0) 01/28/17 21:57 Baso % (Auto) 0.9 % (0.0-2.0) 01/28/17 21:57 Neut # 3.1 K/uL (1.8-7.0) 01/28/17 21:57 Lymph # 3.4 K/uL (1.0-4.3) 01/28/17 21:57 [place] # 1.1 K/uL (0.0-0.8) H 01/28/17 21:57 Eos # 0.3 K/uL (0.0-0.7) 01/28/17 21:57 Baso # 0.1 K/uL (0.0-0.2) 01/28/17 21:57 Sodium 129 mmol/l (132-148) L 02/02/17 06:00 Potassium 4.1 MMOL/L (3.6-5.0) 02/02/17 06:00 Chloride 96 mmol/L (98-107) L 02/02/17 06:00 Carbon Dioxide 24 mmol/L (22-30) 02/02/17 06:00 Anion Gap 13 (10-20) 02/02/17 06:00 BUN 22 mg/dl (7-17) H 02/02/17 06:00 Creatinine 0.6 mg/dL (0.7-1.2) L 02/02/17 06:00 Est GFR ( Amer) > 60 02/02/17 06:00 Est GFR (Non-Af Amer) > 60 02/02/17 06:00 Random Glucose 85 mg/dL (65-105) 02/02/17 06:00 Calcium 8.3 mg/dL (8.4-10.2) L 02/02/17 06:00 Phosphorus 3.5 mg/dl (2.5-4.5) 01/29/17 03:28 Magnesium 1.8 MG/DL (1.6-2.3) 02/02/17 06:00 Total Bilirubin 0.1 mg/dl (0.2-1.3) L 02/02/17 06:00 AST 26 U/L (14-36) 02/02/17 06:00 ALT 22 U/L (9-52) 02/02/17 06:00 Alkaline Phosphatase 65 U/L (38-126) 02/02/17 06:00 Troponin I < 0.0120 ng/mL (0.00-0.120) 01/29/17 15:15 Total Protein 5.7 G/DL (6.3-8.2) L 02/02/17 06:00 Albumin 2.9 g/dL (3.5-5.0) L 02/02/17 06:00 Globulin 2.9 gm/dL (2.2-3.9) 02/02/17 06:00 Albumin/Globulin Ratio 1.0 (1.0-2.1) 02/02/17 06:00 Vitamin B12 386 pg/mL (239-931) 01/29/17 07:57 Free T4 1.20 ng/dL (0.78-2.19) 01/28/17 21:57 Total T3 1.05 nmol/L (1.49-2.60) L 01/28/17 21:57 TSH 3rd Generation 1.80 mIU/ML (0.46-4.68) 01/29/17 07:57 Urine Color Straw (YELLOW) 01/28/17 22:53 Urine Clarity Clear (Clear) 01/28/17 22:53 Urine pH 7.0 (5.0-8.0) 01/28/17 22:53 Ur Specific [place] 1.006 (1.003-1.030) 01/28/17 22:53 Urine Protein Negative mg/dL (NEGATIVE) 01/28/17 22:53 Urine Glucose (UA) Neg mg/dL (Normal) 01/28/17 22:53 Urine Ketones Negative mg/dL (NEGATIVE) 01/28/17 22:53 Urine Blood Negative (NEGATIVE) 01/28/17 22:53 Urine Nitrate Negative (NEGATIVE) 01/28/17 22:53 Urine Bilirubin Negative (NEGATIVE) 01/28/17 22:53 Urine Urobilinogen 0.2-1.0 mg/dL (0.2-1.0) 01/28/17 22:53 Ur Leukocyte Esterase Trace Lissett/uL (Negative) 01/28/17 22:53 Urine RBC (Auto) 4 /hpf (0-3) H 01/28/17 22:53 Urine Microscopic WBC 1 /hpf (0-5) 01/28/17 22:53 Ur Squamous Epith Cells 5 /hpf (0-5) 01/28/17 22:53 Urine Bacteria Rare (<OCC) 01/28/17 22:53 Urine Opiates Screen Negative (NEGATIVE) 02/02/17 11:29 Urine Methadone Screen Negative (NEGATIVE) 02/02/17 11:29 Ur Barbiturates Screen Positive (NEGATIVE) H 02/02/17 11:29 Valproic Acid 35.7 ug/mL (50.0-100.0) L 01/29/17 02:38 Ur Phencyclidine Scrn Negative (NEGATIVE) 02/02/17 11:29 Ur Amphetamines Screen Negative (NEGATIVE) 02/02/17 11:29 U Benzodiazepines Scrn Positive (NEGATIVE) H 02/02/17 11:29 U Oth Cocaine Metabols Negative (NEGATIVE) 02/02/17 11:29 U Cannabinoids Screen Negative (NEGATIVE) 02/02/17 11:29 Alcohol, Quantitative 179 mg/dl (0-10) H 01/28/17 21:57 - Hospital Course Hospital Course: Pt was admitted for electrolyte imbalance and chest pain for which cardiology cleared , then report psychiatry issues was seen and cleared by psychiatry. Pt refuses to be discharged but has been informed there is not medical reason to continue hospitalization. Pt stable for discharge. Discharge Exam - Head Exam Head Exam: NORMOCEPHALIC - Eye Exam Eye Exam: Normal appearance, PERRL Pupil Exam: NORMAL ACCOMODATION - ENT Exam ENT Exam: Mucous Membranes Moist - Respiratory Exam Respiratory Exam: NORMAL BREATHING PATTERN - Cardiovascular Exam Cardiovascular Exam: REGULAR RHYTHM, +S1, +S2 - GI/Abdominal Exam GI & Abdominal Exam: Normal Bowel Sounds, Soft - Extremities Exam Extremities exam: normal inspection - Neurological Exam Neurological exam: Alert, CN II-XII Intact, Oriented x3 Discharge Plan - Follow Up Plan Condition: FAIR Disposition: HOME/ ROUTINE Patient education suggested?: Yes Instructions: Dehydration (DC), Generalized Anxiety Disorder (GEN), Abuse of Alcohol (GEN) Referrals: Cl Burr MD [Staff Provider] -
[2017-02-03] MEDS: Divalproex 500 mg DR(BID formulation) PO SCH (10:36)
== END 2017-02-03 17:50 | disposition home or self-care (01) | DRG 296 ==
LOC: H.ER 21:31 → H.ERHOLD 01-29 02:00 → H.TEL 01-29 02:51
PROVIDERS: ADMIT Internal Medicine; ATTEND Internal Medicine
DX: E83.42 Hypomagnesemia (principal); E87.1 Hypo-osmolality and hyponatremia; I10 Essential (primary) hypertension; F14.10 Cocaine abuse, uncomplicated; F10.10 Alcohol abuse, uncomplicated; F31.9 Bipolar disorder, unspecified

== ENCOUNTER 2017-02-28 21:26 | Observation (INO) | payer MEDICAID ==
[2017-02-28 21:26] VITALS: BMI 18.3
--- NOTE | 2017-02-28 22:52 | ED PDOC ---
HPI: Psych/Substance Abuse Time Seen by Provider: 02/28/17 21:53 Chief Complaint (Nursing): Psychiatric Evaluation Chief Complaint (Provider): Psychiatric Evaluation/Chest Tightness History/Exam Limitations: no limitations Current Symptoms Are (Timing): Still Present Additional Complaint(s): 21:53 Briana Akins is a 52 year old female with a history of depression, anxiety , bipolar disorder, schizophrenia, hypertension, CAD, and PNA presents to the ED with a chief complaint of feeling extremely depressed for the past few days, as well as non-radiating, non-painful chest tightness and heaviness that she has been experiencing since this this afternoon. Patient states that she was admitted to [facility] last week for pneumonia, and that she was discharged and finished her course of antibiotics. She denies any difficulty breathing or any fever, but she does have a mild cough. Past Medical History Vital Signs: Last Vital Signs Temp 98 F 02/28/17 21:29 Pulse 99 H 02/28/17 21:29 Resp 22 02/28/17 21:29 BP 149/73 02/28/17 21:29 Pulse Ox 98 02/28/17 21:29 - Medical History PMH: Anxiety, Bipolar Disorder, CAD, Cardia Arrhythmia, Depression, Fractures ( right wrist due to fall), HTN, Migraine, Pneumonia, Schizophrenia, Seizures Denies: Diabetes, Hepatitis, HIV, Chronic Kidney Disease, Sexually Transmitted Disease - Surgical History Surgical History: Cholecystectomy - Family History Family History: States: Unknown Family Hx - Immunization History Hx Tetanus Toxoid Vaccination: No Hx Influenza Vaccination: Yes Hx Pneumococcal Vaccination: No - Home Medications Home Medications: Ambulatory Orders Medication Instructions Recorded traZODone [Desyrel] 150 mg PO HS 01/28/17 Aspirin [Aspirin Chewable] 81 mg PO DAILY 03/01/17 Atorvastatin [Lipitor] 40 mg PO DAILY 03/01/17 Clopidogrel [Plavix] 75 mg PO DAILY 03/01/17 Divalproex Sodium [Divalproex 500 mg PO BID 03/01/17 Sodium ER] Divalproex [Depakote Sprinkles] 250 mg PO DAILY 03/01/17 Enalapril Maleate [Vasotec] 5 mg PO BID 03/01/17 Gabapentin [Neurontin] 800 mg PO TID 03/01/17 Levofloxacin [Levaquin] 750 mg PO DAILY 03/01/17 Mirtazapine [Remeron] 45 mg PO HS 03/01/17 - Allergies Allergies/Adverse Reactions: Allergies Allergy/AdvReac Type Severity Reaction Status Date / Time FISH Allergy ITCHING Verified 02/14/17 16:24 Penicillins AdvReac URTICARIA Verified 02/14/17 16:24 Review of Systems Constitutional: Negative for: Fever Cardiovascular: Positive for: Other (chest tightness/heaviness) Respiratory: Positive for: Cough (mild). Negative for: Other (no difficulty breathing) Psych: Positive for: Depression Physical Exam - Reviewed Nursing Documentation Reviewed: Yes Vital Signs Reviewed: Yes - Physical Exam Appears: Positive for: Non-toxic, In Acute Distress (Patient is tearful and anxious) Head Exam: Positive for: ATRAUMATIC, NORMOCEPHALIC Skin: Positive for: Normal Color, Warm Cardiovascular/Chest: Positive for: Regular Rate, Rhythm. Negative for: Murmur Respiratory: Positive for: Normal Breath Sounds. Negative for: Wheezing Gastrointestinal/Abdominal: Positive for: Soft. Negative for: Tenderness Extremity: Positive for: Normal ROM. Negative for: Pedal Edema Neurologic/Psych: Positive for: Alert, Oriented - Laboratory Results Result Diagrams: 02/28/17 22:45 02/28/17 22:45 - ECG ECG: Positive for: Interpreted By Me, Viewed By Me ECG Rhythm: Positive for: Normal QRS, Normal ST Segment, Sinus Rhythm. Negative for: ST/T Changes Rate: 78 O2 Sat by Pulse Oximetry: 98 (RA) Pulse Ox Interpretation: Normal - Radiology X-Ray: Interpreted by Me, Viewed By Me X-Ray Interpretation: No Acute Disease Medical Decision Making Medical Decision Makin:18 Initial Impression: Chest Pain (DDx: Acute Coronary Syndrome vs. Worsening/ Recurring Pneumonia) and Depression Initial Plan: * CBC * BMP * Acetaminophen * Salicylate * Troponin * Valproic Acid * Urine Drug Screen * Urine Dipstick * EKG * Chest X-Ray * Reevaluation If patient is medically cleared, she will have crisis evaluation. Scribe Attestation: Documented by Dottie Clement, acting as a scribe for Loly Arriaga MD. Provider Scribe Attestation: All medical record entries made by the Scribe were at my direction and personally dictated by me. I have reviewed the chart and agree that the record accurately reflects my personal performance of the history, physical exam, medical decision making, and the department course for this patient. I have also personally directed, reviewed, and agree with the discharge instructions and disposition. Disposition - Clinical Impression Clinical Impression: Chest pain, Bipolar disorder - Patient ED Disposition Is Patient to be Admitted: Yes Discussed With : Mitesh Harvey Doctor Will See Patient In The: Hospital Counseled Patient/Family Regarding: Studies Performed, Diagnosis - Disposition Disposition Time: 23:30 Condition: FAIR - Pt Status Changed To: Hospital Disposition Of: Observation - POA Present On Arrival: None ANTONINA Risk Score for UA/NSTEMI - ANTONINA Risk Score Age > 64: NO 3 or more CAD Risk Factors: NO Known CAD (Stenosis greater than 50%): YES Aspirin use in past 7 days: YES Severe Angina: NO EKG ST changes greater than 0.5mm: NO Positive Cardiac Marker: NO ANTONINA Score: 2 % risk at 14 days of: all cause mortality, new or recurrent ID, or severe recurrent ischemia requiring urgen revascularization: 8%
[2017-02-28 22:58] LABS: BASO # 0.1 K/uL (0.0-0.2); BASO % 1.5 % (0.0-2.0); EOS % 0.4 % (0.0-4.0); HEMATOCRIT 32.2 % (34.0-47.0); LYMPH # 2.2 K/uL (1.0-4.3); LYMPH % 41.6 % (20.0-40.0); MEAN CELL VOLUME 89.3 fl (81.0-99.0); MEAN CORPUSCULAR HEMOGLOBIN 29.2 pg (27.0-31.0); MEAN CORPUSCULAR HGB CONC 32.7 g/dL (33.0-37.0); MEAN PLATELET VOLUME 8.6 fl (7.2-11.7); MONO # 0.9 K/uL (0.0-0.8); MONO % 17.5 % (0.0-10.0); NEUT # 2.1 K/uL (1.8-7.0); NRBC % 0.1 % (0.0-0.0); RED CELL DISTRIBUTION WIDTH 16.9 % (11.5-14.5); WHITE BLOOD COUNT 5.3 K/uL (4.8-10.8)
[2017-02-28 23:06] LABS: ALCOHOL SERUM 54 mg/dl (0-10); BLOOD UREA NITROGEN 10 mg/dl (7-17); CALCIUM 8.8 mg/dL (8.4-10.2); CARBON DIOXIDE 24 mmol/L (22-30); CHLORIDE 98 mmol/L (98-107); GFR AFRICAN-AMERICAN > 60; GLUCOSE,RANDOM 93 mg/dL (65-105); POTASSIUM 3.9 MMOL/L (3.6-5.0); SODIUM 137 mmol/l (132-148)
[2017-03-01] MEDS ORDERED: Divalproex 500 mg ER (ONCE DAILY formulation) PO SCH (09:00)
[2017-03-01] MEDS: Divalproex 125 mg Sprinkle Capsule PO SCH (09:11)
[2017-03-01] MEDS: Divalproex 500 mg DR(BID formulation) PO SCH ×2 (09:13→16:57)
--- NOTE | 2017-03-01 10:25 | RAD ---
PROCEDURE: CHEST RADIOGRAPH, 1 VIEW HISTORY: chest congestion COMPARISON: 02/04/2017. FINDINGS: LUNGS: Clear. PLEURA: No pneumothorax or pleural fluid seen. CARDIOVASCULAR: No radiographic findings to suggest acute or significant cardiovascular disease. OSSEOUS STRUCTURES: No significant abnormalities. VISUALIZED UPPER ABDOMEN: Normal. OTHER FINDINGS: None. IMPRESSION: No active disease. No acute/significant interval changes.
--- NOTE | 2017-03-01 10:48 | CP.PCM.CON ---
History of Present Illness - History of Present Illness History of Present Illness: Psychiatry consult called for evaluation of depression CC: "I need help" HPI: 51-year-old female with extensive history of alcohol abuse and cocaine abuse, h/o bipolar disorder vs borderline personality disorder , has had numerous admission in the past several months for various medical and psychiatric complaints, patient known to abstract writer from previous admissions. She has a history of seeking hospitalization due to her homelessness and chronic alcohol abuse to avoid living on the streets. She also has a history of making vague suicidal statements in order to gain psychiatric admissions or prevent discharge from the hospital. When she was last admitted to [facility] she threw a tantrum and threw objects all around the main space in order to try to prevent herself from being discharged. She now presents back to the hospital after drinking excessively last night. She is again requesting to stay in the hospital due to vague complaints of depression. No active suicidal ideation/ plan/intent. Her boyfriend was in the room with her and acknowledged that her main problem is alcohol abuse, that she drank last night and that she keeps losing her space in the prison because she keeps trying to gain admissions to psychiatric hospitals for secondary gain. Patient acknowledges that another psychiatric admission will likely not benefit her as her stress is due to homelessness, poverty, substance abuse and family problems. Past psychiatric history: She was diagnosed with bipolar disorder, but given her history, her presentation is more likely borderline personality disorder with alcohol and cocaine abuse. The patient has history of more than 20 inpatient psychiatric hospitalizations and one incomplete attempt in the past when patient tried to hang herself. Patient also has a long history of etoh abuse. Patients longest period of sobriety is from [id number]. As per the patient she completed a 9 month stay at [facility] 3 years ago. Past medical history: History of coronary artery disease. Family psych history: Depression and anxiety; uncle committed suicide. Social history: +adult children, currently homeless and living at a prison with her boyfriend. She is unemployed. +Extensive history of alcohol abuse and cocaine abuse. MSE: Alert and oriented x 3, good eye contact, thought process-linear/coherent, speech- normal rate/rhythm/volume, thought content- no delusions/paranoia. No hallucinations. No suicidal ideation/plan/intent. No homicidal ideation plan/ intent. Insight/judgment poor re: chronic alcohol and cocaine abuse. Impression: 51-year-old female with extensive history of alcohol abuse and cocaine abuse, h/o bipolar disorder vs borderline personality disorder, has numerous psychiatric admissions for the secondary gain of housing and has chronic alcohol abuse, last drank last night. Patient likely seeking psychiatric admission for the secondary gain of housing/food due to homelessness. Her primary illness is Alcohol abuse and likely borderline personality disorder. She is not reporting any active suicidal ideation/plan/ intent at this time. Recommendations: -Would continue current psychotropic medications -Patient does not need inpatient psychiatric treatment at this time -Primary team can discontinue 1:1 -Re-consult w/ further questions Past Patient History - Infectious Disease Hx of Infectious Diseases: None - Past Medical History & Family History Past Medical History?: Yes - Past Social History Smoking Status: Light Smoker < 10 Cigarettes Daily - CARDIAC Hx Cardia Arrhythmia: Yes Hx Hypertension: Yes - PULMONARY Hx Pneumonia: Yes - NEUROLOGICAL Hx Migraine: Yes Hx Seizures: Yes - HEENT Hx HEENT Problems: No - RENAL Hx Chronic Kidney Disease: No - ENDOCRINE/METABOLIC Hx Endocrine Disorders: No - HEMATOLOGICAL/ONCOLOGICAL Hx Human Immunodeficiency Virus (HIV): No - INTEGUMENTARY Hx Dermatological Problems: No - MUSCULOSKELETAL/RHEUMATOLOGICAL Hx Falls: Yes Hx Fractures: Yes (right wrist due to fall) - GASTROINTESTINAL Hx Gastrointestinal Disorders: No - GENITOURINARY/GYNECOLOGICAL Hx Sexually Transmitted Disorders: No - PSYCHIATRIC Hx Anxiety: Yes Hx Bipolar Disorder: Yes Hx Depression: Yes Hx Schizophrenia: Yes Hx Substance Use: Yes - SURGICAL HISTORY Hx Cholecystectomy: Yes - ANESTHESIA Hx Anesthesia: Yes Hx Anesthesia Reactions: No Hx Malignant Hyperthermia: No Meds Allergies/Adverse Reactions: Allergies Allergy/AdvReac Type Severity Reaction Status Date / Time FISH Allergy ITCHING Verified 02/14/17 16:24 Penicillins AdvReac URTICARIA Verified 02/14/17 16:24 - Medications Medications: Current Medications Aspirin (Aspirin Chewable) 81 mg PO DAILY [facility] Last Admin: 03/01/17 09:08 Dose: 81 mg Atorvastatin Calcium (Lipitor) 40 mg PO DAILY [facility] Last Admin: 03/01/17 09:10 Dose: 40 mg Clopidogrel Bisulfate (Plavix) 75 mg PO DAILY [facility] Last Admin: 03/01/17 09:13 Dose: 75 mg Divalproex Sodium (Depakote Sprinkles) 250 mg PO DAILY [facility] Last Admin: 03/01/17 09:11 Dose: 250 mg Divalproex Sodium (Depakote Dr(*Bid*)) 500 mg PO BID [facility] Last Admin: 03/01/17 09:13 Dose: 500 mg Enalapril Maleate (Vasotec) 5 mg PO BID [facility] Last Admin: 03/01/17 09:14 Dose: 5 mg Gabapentin (Neurontin) 800 mg PO TID [facility] Last Admin: 03/01/17 09:10 Dose: 800 mg Mirtazapine (Remeron) 45 mg PO HS [facility] Naltrexone HCl (Revia) 50 mg PO DAILY [facility] Trazodone HCl (Desyrel) 150 mg PO HS [facility] Results - Vital Signs Recent Vital Signs: Last Vital Signs Temp 97.8 F 03/01/17 09:27 Pulse 67 03/01/17 09:27 Resp 18 03/01/17 09:27 BP 121/74 03/01/17 09:27 Pulse Ox 97 03/01/17 09:27 - Labs Result Diagrams: 02/28/17 22:45 02/28/17 22:45 Labs: Laboratory Results - last 24 hr 03/01/17 01:25 Urine Opiates Screen Negative Urine Methadone Screen Negative Ur Barbiturates Screen Negative Ur Phencyclidine Scrn Negative Ur Amphetamines Screen Negative U Benzodiazepines Scrn Positive H U Oth Cocaine Metabols Negative U Cannabinoids Screen Negative Assessment & Plan - Assessment and Plan (Free Text) Plan: Patient evaluated, chart reviewed, motivational/supportive therapy provided, 55 min
--- NOTE | 2017-03-01 12:30 | CON ---
DATE: 03/01/2017 REASON FOR CONSULTATION: Chest pain. HISTORY OF PRESENT ILLNESS: The patient is a 52-year-old white female who has history of bipolar dis order, depression, schizophrenia, hypertension, was recently discharged from [facility] er after she was treated for pneumonia. The patient is an alcohol abuser and according to her, she i s currently undergoing rehabilitation. The patient is unaware of any history of heart attack, but sh jaspal was advised to undergo cardiac catheterization by her tax audit manager, Dr. Magdaleno, but the procedure wa s never scheduled. The patient presents because of chest tightness. The patient denies any associat ed diaphoresis or radiation of her chest pain. The patient denies any shortness of breath. SOCIAL HISTORY: The patient is an alcohol abuser. MEDICATIONS: Aspirin 81 mg once a day, Depakote 500 mg twice a day, Desyrel 150 mg once a day, Lipit or 40 mg once a day, Neurontin 800 mg t.i.d., Plavix 75 mg once a day, Remeron 45 mg at bedtime, Revi a 50 mg p.o. daily, Vasotec 5 mg twice a day. PHYSICAL EXAMINATION: GENERAL: The patient is a middle-aged female who does not appear to be in any distress. VITAL SIGNS: Blood pressure 121/74, heart rate 67, temperature 97.8, respirations 18. HEENT: Pale conjunctivae. CHEST: Bibasilar rhonchi. HEART: S1, S2 regular. ABDOMEN: Soft. EXTREMITIES: No edema. LABORATORY DATA: Hemoglobin and hematocrit 10.5 and 32.2. White count and platelet count are within normal limits. Today's SMA-7 is within normal limits. One set of troponin is negative. Urine drug screen is positive for benzodiazepines. Alcohol level was 54. EKG revealed normal sinus rhythm. C hest x-ray was unremarkable. ASSESSMENT: 1. Atypical chest pain, rule out myocardial infarction. 2. ETOH abuse. 3. History of schizophrenia and bipolar disorder according to the ER notes. RECOMMENDATIONS: Continue aspirin 81 mg once a day, Plavix 75 mg once a day, Lipitor at 40 mg once a day, Vasotec 5 mg once a day. I would prefer not to initiate beta blockers because of the depressio n that the patient reported. That may make it worse. Obtain one more set of troponin and an echocar diogram. Rohith Ramirez MD cc: [id number] TT: 03/01/2017 12:29:58 Confirmation # [id number] Dictation # [id number]
--- NOTE | 2017-03-01 15:03 | CP.PCM.HP ---
History of Present Illness - History of Present Illness History of Present Illness: CC/ Chest pain/ Depression. 52 y/o F brought to ER [facility] via EMS for evaluation of Chest pain,tightness/ heaviness, non radiated, associated to dry cough on DOA with no relief. Worsening symptom: Severe Depression for few days, headache. Aggravated factor : Pt in non compliance with her meds. Hx of ETHO abuse, she said on rehab but last time drinking was night [employer], Cocaine abuse. States, she was recently discharged from [facility] for PNA and she finished her course of abx. Pt denied: Fever, chills, n/v/d, abdominal pain, dizziness, syncope, CP, numbness, SOB, weakness, sick contact, recent travel. PMHx: Depression, Anxiety, Bipolar disorder, Schizophrenia, HTN, CAD, Migraine, Headache, Seizure, Hx PNA, NH in 2005, also ETHO and Cocaine abuse. Multiple hospital admissions to Psychiatric unit. Long time Homeless. CXR shows: No active disease. Present on Admission - Present on Admission Any Indicators Present on Admission: No Review of Systems - Constitutional Constitutional: Headache - EENT Eyes: Other (negative) Ears: Other (negative) Nose/Mouth/Throat: Other (negative) - Cardiovascular Cardiovascular: Chest Pain - Respiratory Respiratory: Cough - Gastrointestinal Gastrointestinal: Other (negative) - Genitourinary Genitourinary: Other (negative) - Musculoskeletal Musculoskeletal: Other (negative) - Integumentary Integumentary: Other (negative) - Neurological Neurological: Other (negative) - Psychiatric Psychiatric: Behavioral Changes, Depression - Endocrine Endocrine: Other (negative) - Hematologic/Lymphatic Hematologic: Other (negative) Past Patient History - Infectious Disease Hx of Infectious Diseases: None - Past Medical History & Family History Past Medical History?: Yes Pertinent Family History: Unknown - Past Social History Smoking Status: Light Smoker < 10 Cigarettes Daily Alcohol: Other (ETHO abuse) Drugs: Cocaine Home Situation {Lives}: Homeless - CARDIAC Hx Cardiac Disorders: Yes Hx Cardia Arrhythmia: Yes Hx Hypertension: Yes - PULMONARY Hx Respiratory Disorders: Yes Hx Pneumonia: Yes - NEUROLOGICAL Hx Neurological Disorder: Yes Hx Migraine: Yes Hx Seizures: Yes - HEENT Hx HEENT Problems: No - RENAL Hx Chronic Kidney Disease: No - ENDOCRINE/METABOLIC Hx Endocrine Disorders: No - HEMATOLOGICAL/ONCOLOGICAL Hx Blood Disorders: No Hx Human Immunodeficiency Virus (HIV): No - INTEGUMENTARY Hx Dermatological Problems: No - MUSCULOSKELETAL/RHEUMATOLOGICAL Hx Musculoskeletal Disorders: Yes Hx Falls: Yes Hx Fractures: Yes (right wrist due to fall) - GASTROINTESTINAL Hx Gastrointestinal Disorders: No - GENITOURINARY/GYNECOLOGICAL Hx Genitourinary Disorders: No Hx Sexually Transmitted Disorders: No - PSYCHIATRIC Hx Anxiety: Yes Hx Bipolar Disorder: Yes Hx Depression: Yes Hx Schizophrenia: Yes Hx Substance Use: Yes - SURGICAL HISTORY Hx Surgeries: Yes Hx Cholecystectomy: Yes - ANESTHESIA Hx Anesthesia: Yes Hx Anesthesia Reactions: No Hx Malignant Hyperthermia: No Meds Allergies/Adverse Reactions: Allergies Allergy/AdvReac Type Severity Reaction Status Date / Time FISH Allergy ITCHING Verified 02/14/17 16:24 Penicillins AdvReac URTICARIA Verified 02/14/17 16:24 Physical Exam - Constitutional Appears: No Acute Distress - Head Exam Head Exam: NORMAL INSPECTION - Eye Exam Eye Exam: PERRL - ENT Exam ENT Exam: Normal Exam - Neck Exam Neck exam: Positive for: Normal Inspection - Respiratory Exam Respiratory Exam: NORMAL BREATHING PATTERN - Cardiovascular Exam Cardiovascular Exam: REGULAR RHYTHM - GI/Abdominal Exam GI & Abdominal Exam: Normal Bowel Sounds - Extremities Exam Extremities exam: Positive for: normal inspection - Back Exam Back exam: NORMAL INSPECTION - Neurological Exam Neurological exam: Alert, Oriented x3 Additional comments: No motor sensory deficit. - Skin Skin Exam: Warm Results - Vital Signs Recent Vital Signs: Last Vital Signs Temp 98 F 03/01/17 12:29 Pulse 70 03/01/17 12:29 Resp 18 03/01/17 12:29 BP 151/81 H 03/01/17 12:29 Pulse Ox 98 03/01/17 12:29 reviewed J.P. - Labs Result Diagrams: 02/28/17 22:45 02/28/17 22:45 Labs: Laboratory Results - last 24 hr 03/01/17 03/01/17 01:25 11:47 Troponin I < 0.0120 Urine Opiates Screen Negative Urine Methadone Screen Negative Ur Barbiturates Screen Negative Ur Phencyclidine Scrn Negative Ur Amphetamines Screen Negative U Benzodiazepines Scrn Positive H U Oth Cocaine Metabols Negative U Cannabinoids Screen Negative reviewed J.P. - Imaging and Cardiology Chest x-ray Status: Report reviewed by me (J.P.) Assessment & Plan (1) Chest pain Status: Acute (3) Alcohol abuse Status: Removed (4) Bipolar disorder Status: Chronic (5) HTN (hypertension) Status: Acute - Assessment and Plan (Free Text) Plan: Continue Vasotec, ASA, Lipitor, Plavix, Dekapote and rest of Tx. f/u Echo. Cardiology and Psychiatric consult appreciated. - Date & Time Date: 03/01/17 Time: 11:30
--- NOTE | 2017-03-01 16:02 | CARD ---
APPROVED REPORT EXAM: Two-dimensional and M-mode echocardiogram with Doppler and color Doppler. Other Information Quality : GoodRhythm : NSR INDICATION Chest Pain 2D DIMENSIONS IVSd1.02 (0.7-1.1cm)LVDd4.28 (3.9-5.9cm) LVOT Diameter1.92 (1.8-2.4cm)PWd1.10 (0.7-1.1cm) IVSs1.48 (0.8-1.2cm)LVDs2.40 (2.5-4.0cm) FS (%) 43.9 %PWs1.34 (0.8-1.2cm) LVEF (%)60.0 (>50%) M-Mode DIMENSIONS Left Atrium (MM)3.32 (2.5-4.0cm)IVSd1.26 (0.7-1.1cm) Aortic Root2.88 (2.2-3.7cm)LVDd4.91 (4.0-5.6cm) Aortic Cusp Exc.1.97 (1.5-2.0cm)PWd1.15 (0.7-1.1cm) IVSs1.85 cmFS (%) 60 % LVDs1.97 (2.0-3.8cm)PWs1.76 cm Mitral Valve MV E Xiwxtipw43.6cm/sMV DECEL [id number] A Gszchoga29.6cm/s MV SZD93daG/A ratio1.0MVA (PHT)2.41cm2 TDI Lateral E' Peak V11.16cm/sMedial E' Peak V6.11cm/sE/Lateral E'4.5 E/Medial E'8.3 Pulmonary Valve PV Peak Crxiqkxm95.6cm/s Tricuspid Valve TR Peak Alvsjsit314ck/sRAP [id number] Peak Gr.18mmHg [id number] LEFT VENTRICLE The left ventricle is normal size. There is normal left ventricular wall thickness. The left ventricular function is normal. The left ventricular ejection fraction is within the normal range. There is normal LV segmental wall motion. Transmitral Doppler flow pattern is Grade I-abnormal relaxation pattern. RIGHT VENTRICLE The right ventricle is normal size. There is normal right ventricular wall thickness. The right ventricular systolic function is normal. ATRIA The left atrium size is normal. The right atrium size is normal. AORTIC VALVE The aortic valve is mildly thickened. No aortic regurgitation is present. There is no aortic valvular stenosis. MITRAL VALVE The mitral valve is moderately thickened. There is no mitral valve stenosis. There is no mitral valve regurgitation noted. TRICUSPID VALVE The tricuspid valve is normal in structure There is trace tricuspid regurgitation. PULMONIC VALVE The pulmonary valve is normal in structure and function. There is no pulmonic valvular regurgitation. GREAT VESSELS The aortic root is normal in size. The IVC is normal in size and collapses >50% with inspiration. PERICARDIAL EFFUSION The pericardium appears normal. <Conclusion> The left ventricle is normal size. There is normal left ventricular wall thickness. The left ventricular function is normal. The left ventricular ejection fraction is within the normal range. There is normal LV segmental wall motion. Transmitral Doppler flow pattern is Grade I-abnormal relaxation pattern.
--- NOTE | 2017-03-01 20:19 | CARD ---
APPROVED REPORT EKG Measurement Heart [id number] <Conclusion> Normal sinus rhythm Normal ECG
[2017-03-01] MEDS ORDERED: Alum-Mag Hydrox-Simethicone Susp (30 mL) PO ONE (21:34)
[2017-03-02 08:28] VITALS: BP 135/78; PULSE 59; RESP 20; TEMP 97.2; O2SAT 97
[2017-03-02] MEDS: Divalproex 500 mg DR(BID formulation) PO SCH (09:27)
[2017-03-02] MEDS: Divalproex 125 mg Sprinkle Capsule PO SCH (09:27)
== END 2017-03-02 10:50 | disposition home or self-care (01) ==
LOC: H.ER 21:26 → H.ERHOLD 23:48 → H.TEL 03-01 02:07
PROVIDERS: ADMIT Internal Medicine Pulmonary Disease; ATTEND Internal Medicine Pulmonary Disease
DX: R07.89 Other chest pain (principal); F31.9 Bipolar disorder, unspecified; F20.9 Schizophrenia, unspecified; F10.10 Alcohol abuse, uncomplicated; F14.10 Cocaine abuse, uncomplicated; F60.3 Borderline personality disorder; I10 Essential (primary) hypertension; I25.10 Atherosclerotic heart disease of native coronary artery without angina pectoris; I25.2 Old myocardial infarction; Z91.14 Patient's other noncompliance with medication regimen; F17.210 Nicotine dependence, cigarettes, uncomplicated; Z59.0 Homelessness; Z63.9 Problem related to primary support group, unspecified; Z88.0 Allergy status to penicillin; Z91.013 Allergy to seafood; Z87.01 Personal history of pneumonia (recurrent)

== ENCOUNTER 2017-07-19 08:43 | Emergency (ER) | payer MEDICAID ==
[2017-07-19 08:58] VITALS: BP 104/67; PULSE 83; RESP 18; TEMP 97; O2SAT 98
--- NOTE | 2017-07-19 10:34 | ED PDOC ---
Lower Extremity Pain/Injury Time Seen by Provider: 07/19/17 09:05 Chief Complaint (Nursing): Lower Extremity Problem/Injury Chief Complaint (Provider): Lower extremity problem History Per: Patient History/Exam Limitations: no limitations Onset/Duration Of Symptoms: Days (x3) Current Symptoms Are (Timing): Still Present Additional Complaint(s): Briana Akins is a 52 year old female, with a past medical history of hypertension, CAD, bipolar disorder and substance abuse, who presents to the emergency department complaining of pain in the right foot associated with swelling onset for 3 days. Patient reports pain is in the right heel but denies injury. Patient states she is very active. She reports she didn't take anything for the pain. PMD: Ananth Dumont Jr. Past Medical History Reviewed: Historical Data, Nursing Documentation, Vital Signs Vital Signs: Last Vital Signs Temp 97 F L 07/19/17 08:55 Pulse 83 07/19/17 08:55 Resp 18 07/19/17 08:55 BP 104/67 07/19/17 08:55 Pulse Ox 98 07/19/17 08:55 - Medical History PMH: Anxiety, Bipolar Disorder, CAD, Cardia Arrhythmia, COPD, Depression, Fractures (right wrist due to fall), HTN, Migraine, Personality Disorder, Pneumonia, Seizures (ETOH related) Denies: Diabetes, Hepatitis, HIV, Chronic Kidney Disease, Schizophrenia, Sexually Transmitted Disease - Surgical History Surgical History: Cholecystectomy - Family History Family History: States: Unknown Family Hx - Social History Current smoker - smoking cessation education provided: Yes (light smoker <10 cigarettes daily) Alcohol: Social Drugs: Denies - Immunization History Hx Tetanus Toxoid Vaccination: Yes Hx Influenza Vaccination: Yes Hx Pneumococcal Vaccination: Yes - Home Medications Home Medications: Ambulatory Orders Medication Instructions Recorded Valproic Acid [Depakene] 500 mg PO BID sgl 07/06/17 Clopidogrel [Plavix] 75 mg PO DAILY #10 tab 07/07/17 Divalproex [Depakote DR (*BID*)] 600 mg PO BID #20 07/07/17 Gabapentin [Neurontin] 900 mg PO BID #20 cap 07/07/17 Lisinopril [Zestril] 10 mg PO DAILY #10 tab 07/07/17 Atropine/Hyoscyamine [] 1 tab PO Q6 #12 tab 07/12/17 Dibucaine 1% [Nupercainal 1%] 1 oz EXT Q8 #1 tube 07/12/17 Ibuprofen [Motrin] 600 mg PO Q8 #20 tab 07/19/17 Tramadol HCl [Ultram] 50 mg PO TID PRN #10 tablet 07/19/17 - Allergies Allergies/Adverse Reactions: Allergies Allergy/AdvReac Type Severity Reaction Status Date / Time FISH Allergy ITCHING Verified 07/09/17 17:24 Penicillins AdvReac URTICARIA Verified 07/09/17 17:24 Review of Systems ROS Statement: Except As Marked, All Systems Reviewed And Found Negative Musculoskeletal: Positive for: Foot Pain (right heel) Physical Exam - Reviewed Nursing Documentation Reviewed: Yes Vital Signs Reviewed: Yes - Physical Exam Appears: Positive for: Well, Non-toxic, No Acute Distress Head Exam: Positive for: ATRAUMATIC, NORMAL INSPECTION, NORMOCEPHALIC Skin: Positive for: Normal Color, Warm, Dry Eye Exam: Positive for: Normal appearance Cardiovascular/Chest: Positive for: Regular Rate, Rhythm. Negative for: Murmur Respiratory: Positive for: Normal Breath Sounds. Negative for: Respiratory Distress Extremity: Positive for: Normal ROM (left extremity), Tenderness (mild on right heel), Swelling (mild on right heel). Negative for: Deformity, Other (no redness on right heel) Neurologic/Psych: Positive for: Alert, Oriented - ECG O2 Sat by Pulse Oximetry: 98 (RA) Pulse Ox Interpretation: Normal Medical Decision Making Medical Decision Making: Initial Impression: right heel pain. differential include stress fracture, calcaneal spur, and plantar fasciitis. Initial Plan: --Foot AP LAT RT [RAD] --Toradol 15 mg --Heel Right [RAD] --reevaluation Xray right heel foot no acute findings. Calcaneal spur. Scribe Attestation: Documented by Lewis Shaw, acting as a scribe for Loly Arriaga MD Provider Scribe Attestation: All medical record entries made by the Scribe were at my direction and personally dictated by me. I have reviewed the chart and agree that the record accurately reflects my personal performance of the history, physical exam, medical decision making, and the department course for this patient. I have also personally directed, reviewed, and agree with the discharge instructions and disposition. Disposition - Clinical Impression Clinical Impression: Calcaneal spur of right foot, Pain of right heel - Patient ED Disposition Is Patient to be Admitted: No Doctor Will See Patient In The: Office Counseled Patient/Family Regarding: Studies Performed, Diagnosis, Need For Followup - Disposition Referrals: Podiatry Clinic [Outside] Disposition: Routine/Home Disposition Time: 11:07 Condition: GOOD Additional Instructions: Take your medications as instructed. Follow up with podiatry within 1 week. Prescriptions: Ibuprofen [Motrin] 600 mg PO Q8 #20 tab Tramadol HCl [Ultram] 50 mg PO TID PRN #10 tablet PRN Reason: Pain, Severe (8-10) Instructions: Heel Spur (ED)
--- NOTE | 2017-07-19 12:02 | RAD ---
PROCEDURE: Radiographs of the right calcaneus/hindfoot. HISTORY: right heel pain COMPARISON: None available. TECHNIQUE: Frontal and lateral radiographs of the calcaneus. FINDINGS: No fracture or joint dislocation. No suspicious lytic or blastic changes identified. A small plantar calcaneal spur is identified. IMPRESSION: A small plantar calcaneal spur is identified. No fracture, subluxation or dislocation identified.
--- NOTE | 2017-07-19 12:04 | RAD ---
PROCEDURE: Right Foot Radiographs. HISTORY: heel pain COMPARISON: None. FINDINGS: BONES: There is no acute fracture, dislocation or suspicious lytic or blastic change identified. 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 The 1st metatarsophalangeal joint is also affected similarly. SOFT TISSUES: Normal. OTHER FINDINGS: None. IMPRESSION: Limited degenerate changes seen the forefoot. No acute fracture dislocation. Note is made of a tiny plantar calcaneal spur at the base the calcaneus (not mentioned above).
== END 2017-07-19 11:20 | disposition home or self-care (01) ==
LOC: H.ER 08:43
DX: M77.31 Calcaneal spur, right foot (principal); F31.9 Bipolar disorder, unspecified; F41.9 Anxiety disorder, unspecified; I10 Essential (primary) hypertension; I25.10 Atherosclerotic heart disease of native coronary artery without angina pectoris; Z88.0 Allergy status to penicillin
CPT/HCPCS: 73620; 73650; 81025; 96372; 99283; J1885

== ENCOUNTER 2017-09-14 18:33 | Inpatient (IN) | payer MEDICAID ==
[2017-09-14 18:33] VITALS: BMI 20.9
[2017-09-14 18:40] VITALS: O2SAT 100
--- NOTE | 2017-09-14 20:05 | ED PDOC ---
HPI: Psych/Substance Abuse Time Seen by Provider: 09/14/17 18:49 Chief Complaint (Nursing): Altered Mental Status Chief Complaint (Provider): depression History Per: Patient History/Exam Limitations: no limitations Onset/Duration Of Symptoms: Days (x2-3 weeks) Current Symptoms Are (Timing): Still Present Additional Complaint(s): Briana Akins is a 52 year old female with previous medical history of bipolar disorder, who presents to the emergency department for an evaluation of depression associated with hearing voices and "thoughts of walking into traffic to be ran over" ongoing for 2-3 weeks. Denied any visual hallucination or homicidal ideation. Patient has been evaluated recently at [facility] and admitted to drinking a "couple beers" today. PMD: none provided Past Medical History Reviewed: Historical Data, Nursing Documentation, Vital Signs Vital Signs: Last Vital Signs Temp 98.6 F 09/14/17 18:36 Pulse 65 09/14/17 18:36 Resp 16 09/14/17 18:36 BP 131/75 09/14/17 18:36 Pulse Ox 100 09/14/17 18:36 - Medical History PMH: Anxiety, Bipolar Disorder, CAD, Cardia Arrhythmia, COPD, Depression, Fractures (right wrist due to fall), HTN, Migraine, Personality Disorder, Pneumonia, Seizures (ETOH related) Denies: Diabetes, Hepatitis, HIV, Chronic Kidney Disease, Schizophrenia, Sexually Transmitted Disease - Surgical History Surgical History: Cholecystectomy - Family History Family History: States: Unknown Family Hx - Social History Current smoker - smoking cessation education provided: Yes Ex-Smoker (has not smoked in the last 12 months): No Alcohol: Social Drugs: Cocaine - Immunization History Hx Tetanus Toxoid Vaccination: No Hx Influenza Vaccination: Yes Hx Pneumococcal Vaccination: Yes - Home Medications Home Medications: Ambulatory Orders Medication Instructions Recorded Atorvastatin [Lipitor] 10 mg PO DIN #30 07/27/17 Clopidogrel [Plavix] 75 mg PO DAILY #30 tab 07/27/17 Lisinopril [Zestril] 10 mg PO DAILY 07/31/17 Divalproex [Depakote ER(ONCE 500 mg PO HS #14 ter 08/01/17 DAILY)] Gabapentin [Neurontin] 600 mg PO TID 08/04/17 Ibuprofen [Motrin Tab] 600 mg PO Q6 #14 tab 08/19/17 - Allergies Allergies/Adverse Reactions: Allergies Allergy/AdvReac Type Severity Reaction Status Date / Time FISH Allergy ITCHING Verified 08/19/17 11:59 Penicillins AdvReac URTICARIA Verified 08/19/17 11:59 Review of Systems ROS Statement: Except As Marked, All Systems Reviewed And Found Negative Psych: Positive for: Depression, Psychosis (hears voices), Suicidal ideation. Negative for: Other (visual hallucinations or homicidal ideation) Physical Exam - Reviewed Nursing Documentation Reviewed: Yes Vital Signs Reviewed: Yes - Physical Exam Appears: Positive for: Non-toxic (psychiatric distress), In Acute Distress ( psychiatric distess) Head Exam: Positive for: ATRAUMATIC, NORMOCEPHALIC Skin: Positive for: Warm, Dry Eye Exam: Positive for: EOMI, PERRL ENT: Negative for: Pharyngeal Erythema, Tonsillar Exudate Neck: Positive for: Painless ROM, Supple Cardiovascular/Chest: Positive for: Regular Rate, Rhythm, Chest Non Tender. Negative for: Murmur Respiratory: Positive for: Normal Breath Sounds. Negative for: Wheezing Gastrointestinal/Abdominal: Positive for: Soft. Negative for: Tenderness Back: Positive for: Normal Inspection. Negative for: Decreased ROM Extremity: Positive for: Normal ROM. Negative for: Deformity Lymphatic: Negative for: Adenopathy Neurologic/Psych: Positive for: Alert, Mood/Affect (sad mood, depressed and anxious affect). Negative for: Motor/Sensory Deficits - Laboratory Results Result Diagrams: 09/14/17 20:00 09/14/17 20:28 Interpretation Of Abn Labs: Labs demonstrate stable anemia and hyponatremia. No emergently significant lab abnormalities - ECG ECG: Positive for: Interpreted By Mo ECG Rhythm: Positive for: Normal QRS, Normal ST Segment, Sinus Rhythm (52) O2 Sat by Pulse Oximetry: 100 (RA) Pulse Ox Interpretation: Normal Medical Decision Making Medical Decision Making: Initial Impression: Depression Initial Plan: * EKG * Acetaminophen * Alcohol serum * CMP * Drug screen, urine * Magnesium * Phosphorous * Salicylate * TSH * Troponin I * Valproic acid * Crisis eval * Urine * Urine dipstick * CBC * CXR * 1:1 OBS Evaluated by crisis and pt to be admitted for decompensated bipolar disorder. Medically stable for psychiatric floor. Scribe Attestation: Documented by Lila Loomis, acting as a scribe for Wilma Anderson MD. Provider Scribe Attestation: All medical record entries made by the Scribe were at my direction and personally dictated by me. I have reviewed the chart and agree that the record accurately reflects my personal performance of the history, physical exam, medical decision making, and the department course for this patient. I have also personally directed, reviewed, and agree with the discharge instructions and disposition. Disposition - Clinical Impression Clinical Impression: Bipolar disorder, Hyponatremia, Anemia - Disposition Disposition Time: 20:30 Condition: STABLE - Pt Status Changed To: Hospital Disposition Of: Inpatient - Admit Certification Admit to Inpatient:: After my assessment, the patient will require hospitalization for at least two midnights. This is because of the severity of symptoms shown, intensity of services needed, and/or the medical risk in this patient being treated as an outpatient. - POA Present On Arrival: None
[2017-09-14 20:22] LABS: BASO # 0.1 K/uL (0.0-0.2); BASO % 1.1 % (0.0-2.0); EOS # 0.1 K/uL (0.0-0.7); HEMATOCRIT 28.4 % (34.0-47.0); LYMPH # 3.5 K/uL (1.0-4.3); LYMPH % 54.2 % (20.0-40.0); MEAN CELL VOLUME 86.8 fl (81.0-99.0); MEAN CORPUSCULAR HEMOGLOBIN 28.7 pg (27.0-31.0); MEAN PLATELET VOLUME 8.6 fl (7.2-11.7); MONO # 0.6 K/uL (0.0-0.8); MONO % 9.5 % (0.0-10.0); NEUT # 2.1 K/uL (1.8-7.0); NEUT % 33.2 % (50.0-75.0); NRBC % 0.1 % (0.0-0.0); RED CELL DISTRIBUTION WIDTH 16.3 % (11.5-14.5); WHITE BLOOD COUNT 6.5 K/uL (4.8-10.8)
[2017-09-14 20:49] LABS: ALB/GLOB RATIO 1.4 (1.0-2.1); ALCOHOL SERUM 92 mg/dl (0-10); ALKALINE PHOSPHATASE 52 U/L (38-126); ALT/SGPT 26 U/L (9-52); AST/SGOT 37 U/L (14-36); BILIRUBIN,TOTAL < 0.1 mg/dl (0.2-1.3); BLOOD UREA NITROGEN 14 mg/dl (7-17); CALCIUM 8.8 mg/dL (8.4-10.2); CARBON DIOXIDE 23 mmol/L (22-30); CHLORIDE 97 mmol/L (98-107); GFR AFRICAN-AMERICAN > 60; GLUCOSE,RANDOM 71 mg/dL (65-105); MAGNESIUM 1.7 MG/DL (1.6-2.3); PHOSPHOROUS 4.8 mg/dl (2.5-4.5); POTASSIUM 4.5 MMOL/L (3.6-5.0); SODIUM 129 mmol/l (132-148); TOTAL PROTEIN 6.5 G/DL (6.3-8.2)
[2017-09-14 20:50] LABS: VALPROIC ACID 47.2 ug/mL (50.0-100.0)
[2017-09-14 21:18] LABS: THYROID STIMULATING HORMONE 2.15 mIU/ML (0.46-4.68)
[2017-09-15] MEDS ORDERED: DiphenhydrAMINE 50 mg/ml Inj IM PRN (03:16)
[2017-09-15] MEDS ORDERED: Magnesium Hydroxide Susp 30 ml UD PO PRN (03:16)
[2017-09-15] MEDS ORDERED: Alum-Mag Hydrox-Simethicone Susp (30 mL) PO PRN (03:16)
[2017-09-15] MEDS ORDERED: Bismuth Subsalicylate 262 mg/15 ml Sus (240 ml) PO PRN (03:18)
--- NOTE | 2017-09-15 03:35 | PCM.BM ---
<SiriamelissaArianchalo Torre - Last Filed: 09/15/17 03:36> Treatment Plan Problems - Problems identified on initial assessmt Hopelessness/Helplessness Date Initiated: 09/15/17 Time Initiated: 03:34 Assessment reference: NA Status: Active Feelings of Worthlessness Date Initiated: 09/15/17 Time Initiated: 03:35 Assessment reference: NA Status: Active Treatment assets and liabiliti Patient Assests: adapts well, cooperative, ADL independent, negotiates basic needs, cognitively intact Patient Liabilities: financial problems, poor support system, relationship conflicts, substance abuse - Milieu Protocol Maintain good personal hygiene: daily Encourage regular showers, daily Remind patient to perform daily oral care Maintain personal safety: every shift Educate patient to report safety concerns to staff, every shift Monitor environment for contraband/sharps Medication safety: Monitor for expected outcome, potential side effects: every shift, Assess barriers to learning: every shift, Assess readiness for medication education: every shift <Kadie Conrad - Last Filed: 09/19/17 16:24> Treatment assets and liabiliti Patient Assests: adapts well, cooperative, resourceful, self-reliant, ADL independent, negotiates basic needs, cognitively intact Patient Liabilities: financial problems, poor support system, relationship conflicts, substance abuse, other Family Contact Family involvement: Patient does not wish Family/SO involvement Family contact: Family has been contacted by patient, Patient declines to allow family contact at present - Outside Agency Agency 1 Care involvment: Other (Patient agreeable to referral but not agreeable to waiting for appointment on 3NP. Patient encouraged to contact typewriter operator automatic on 09/20 to retrieve aftercare) Agency contact name: [facility] Agency contact number: [phone] - Goals for Treatment Patient goals for treatment: Patient to continue stabilization on 3NP through medication management and group/supportive therapy. Patient to be encouraged to attend groups regularly to promote self-awareness, compliance, and improve insight, coping skills and self-esteem. Patient to be provided with referral for appropriate level of aftercare to reduce risk of future hospitalizations and ensure safety in the community. Discharge/Continuing Care - Education Needs Education Needs: Patient Medication, Patient Coping Skills, Patient Community resources, Patient Aftercare Safety Plan - Discharge Discharge Criteria: Tolerates medication w/o severe side effects, Free of Suicidal thoughts, Normal sleep pattern, Ability to care for self, Reduction of target symptoms Discharge to:: [facility] - Treatment Team Participation Patient/Family/SO Statement: 09/19/17 16:22 Patient was discharged on 09/19 prior to treatment team. Therefore, patient unable to attend. Cooker Chip met with patient prior to discharge to discuss progress on 3NP and aftercare. Patient signed a 48 hour notice and had to be discharged this morning. Referral was faxed on 09/19. Patient strongly encouraged to contact typewriter operator automatic on 09/20 to retrieve follow-up appointment. Contact information provided. 09/19/17 16:24 Discussed with Family/SO: No Was Patient/Family/SO present at Treatment Team Meeting: No
--- NOTE | 2017-09-15 07:37 | RAD ---
HISTORY: placement COMPARISON: 02/28/2017. FINDINGS: LUNGS: No active pulmonary disease. PLEURA: No significant pleural effusion identified, no pneumothorax apparent. CARDIOVASCULAR: No radiographic findings to suggest acute or significant cardiovascular disease. OSSEOUS STRUCTURES: No significant abnormalities. VISUALIZED UPPER ABDOMEN: Normal. OTHER FINDINGS: None. IMPRESSION: No active disease. No significant interval change compared to the prior examination(s). Please note: No preliminary interpretation of this examination rendered by emergency department personnel (Physician and/or PA declined to provide preliminary report of their findings/ observations).
[2017-09-15 09:39] LABS: T4 5.16 ug/dl (5.5-11.0)
[2017-09-15 09:52] LABS: THYROID STIMULATING HORMONE 1.16 mIU/ML (0.46-4.68)
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
--- NOTE | 2017-09-15 15:29 | CARD ---
APPROVED REPORT EKG Measurement Heart [id number] <Conclusion> Sinus bradycardia Otherwise normal ECG
[2017-09-15] MEDS: Divalproex 500 mg ER (ONCE DAILY formulation) PO SCH (21:34)
--- NOTE | 2017-09-16 13:30 | PCM.PYCHPN ---
Psychiatric Progress Note - Psychiatric Progress Note Patient seen today, length of contact: patient evaluated discussed with team chart reviewed Patient Chief Complaint: I am feeling anxious, i worry about my children Problems Identified/Issues Discussed: patient on evaluation continues to fell anxious, sad and tearfulpatient reported she feels guilty about not being there for her children reported decreased sleep with early insomnia denied any current suicidal or homicidal ideations denied command hallucinations DSM 5 Symptoms Update: bipolar disorder I mre depressed cocaine use disorder alcohol use disorder Medication Change: Yes (discussed with patient starting wellbutrin) Medical Record Reviewed: Yes Mental Status Examination - Cognitive Function Orientation: Person, Place Memory: Intact Attention: WNL Concentration: WNL Association: WNL Fund of Knowledge: WNL Decription of patient's judgement and insights: fair insight , poor judgment - Mood Mood: Depressed, Anxious - Affect Affect: Constricted, Depressed - Formal Thought Process Formal Thought Process: No Impairment - Homicidal Ideation Homicidal Ideation: No Goal/Treatment Plan - Goal/Treatment Plan Progress Toward Problem(s) and Goals/Treatment Plan: start neurontin and depakote for anxiety and mood stabilization start wellbutrin for depression 75 mg cbt and group therapy provided Estimated Date of D/C: 09/20/17
[2017-09-16] MEDS: Divalproex 500 mg ER (ONCE DAILY formulation) PO SCH (21:47)
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
[2017-09-17] MEDS: Divalproex 500 mg ER (ONCE DAILY formulation) PO SCH (21:26)
[2017-09-18 08:44] VITALS: BP 122/72
[2017-09-18 09:10] VITALS: PULSE 68; RESP 18; TEMP 97.7
--- NOTE | 2017-09-18 13:55 | PCM.PYCHPN ---
Psychiatric Progress Note - Psychiatric Progress Note Patient seen today, length of contact: patient evaluated discussed with team chart reviewed Patient Chief Complaint: I am READY TO TRY IT OUTSIDE BUT ANXIOUS Problems Identified/Issues Discussed: patient on evaluation feels less anxious and less depressed denied any current suicidal or homicidal ideations denied command hallucinations DSM 5 Symptoms Update: BIPOLAR DISORDER DEPRESSED Medication Change: No Medical Record Reviewed: Yes Mental Status Examination - Cognitive Function Orientation: Person, Place Memory: Intact Attention: WNL Concentration: WNL Association: WNL Fund of Knowledge: [facility] Decription of patient's judgement and insights: fair insight , poor judgment - Mood Mood: Depressed, Anxious - Affect Affect: Constricted, Depressed - Formal Thought Process Formal Thought Process: No Impairment Psychotic Thoughts and Behaviors: PATIENT DENIED ANY CURRENT PERCEPTUAL DISTURBANCES NON ELICITED - Suicidal Ideation Suicidal Ideation: No - Homicidal Ideation Homicidal Ideation: No Goal/Treatment Plan - Goal/Treatment Plan Need for Continued Stay: Severe depression anxiety Progress Toward Problem(s) and Goals/Treatment Plan: continue neurontin and depakote for anxiety and mood stabilization continue EFFEXOR for depression 37.5 mg cbt and group therapy provided Estimated Date of D/C: 09/20/17
[2017-09-18] MEDS: Divalproex 500 mg ER (ONCE DAILY formulation) PO SCH (21:02)
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
== END 2017-09-19 12:15 | disposition home or self-care (01) | DRG 430 ==
LOC: H.ER 18:33 → H.ERHOLD 20:30 → H.PSYCH 09-15 03:10
PROVIDERS: ADMIT Psychiatry & Neurology Psychiatry; ATTEND Psychiatry & Neurology Psychiatry
PROC: GZHZZZZ Group Psychotherapy (ICD-10-PCS; principal; 2017-09-14)
DX: F31.9 Bipolar disorder, unspecified (principal); R45.851 Suicidal ideations; E87.1 Hypo-osmolality and hyponatremia; J44.9 Chronic obstructive pulmonary disease, unspecified; Z91.19 Patient's noncompliance with other medical treatment and regimen; I10 Essential (primary) hypertension; F10.10 Alcohol abuse, uncomplicated; Y90.4 Blood alcohol level of 80-99 mg/100 ml; Z88.0 Allergy status to penicillin; Z91.013 Allergy to seafood; I25.10 Atherosclerotic heart disease of native coronary artery without angina pectoris; M77.31 Calcaneal spur, right foot; I25.2 Old myocardial infarction; Z87.891 Personal history of nicotine dependence; F41.9 Anxiety disorder, unspecified; Z91.410 Personal history of adult physical and sexual abuse; D64.9 Anemia, unspecified

== ENCOUNTER 2017-12-08 14:09 | Inpatient (IN) | payer MEDICAID ==
[2017-12-08 14:09] VITALS: BMI 20.9
--- NOTE | 2017-12-08 15:41 | ED PDOC ---
Syncope/Near Syncope/Dizziness Time Seen by Provider: 12/08/17 14:34 Chief Complaint (Nursing): Syncope Chief Complaint (Provider): "I passed out" History Per: Patient, Family History/Exam Limitations: no limitations Onset/Duration Of Symptoms: Hrs Current Symptoms Are (Timing): Gone Now Number Of Syncopal Episodes: 1 Activity At Onset Of Symptoms: Standing Associated Symptoms Preceding Syncopal Episode: Lightheadedness, Other ( palpitations) Seizure Or Post-ictal Symptoms: None Fall Associated With With Symptoms: No Additional Complaint(s): 52 y/o female with extensive psych hx, ETOH/polysubstance abuse hx, seizure disorder and cardiac hx presents for evaluation s/p syncopal episode. Pt reports she was in her usual state of good health this morning and was preparing to go see friends when she felt her heart racing and gradually lost consciousness. Fiance and friends nearby noticed the symptoms and caught the patient and put her in a chair The syncopal episode last approx 5 seconds, the pt gradually regained consciousness but was disoriented. No urinary/bladder incontenence/tongue biting or seizure like activity during the episode. S/p syncope, the pt gradually became alert and oriented again and only residual symptoms were left arm pain. Last seizure was 3 months ago and fiance at bedside reports this was not similar in anyway to that. Last time ETOH consumed was last night (approx 2 beer), denies any substance abuse for the past 3 months. No other complaints. Denies headaches, changes in vision, N/V/D, diaphoresis, urinary symptoms. PMD: [place] Past Medical History Vital Signs: Last Vital Signs Temp 98.0 F 12/08/17 14:11 Pulse 87 12/08/17 14:11 Resp 18 12/08/17 14:11 BP 138/73 12/08/17 14:11 Pulse Ox 99 12/08/17 14:11 - Medical History PMH: Anxiety, Bipolar Disorder, CAD, Cardia Arrhythmia, COPD, Depression, Fractures (right wrist due to fall), HTN, Migraine, Personality Disorder, Pneumonia, Seizures (ETOH related) Denies: HIV, Chronic Kidney Disease, Sexually Transmitted Disease - Surgical History Surgical History: Cholecystectomy - Family History Family History: States: Unknown Family Hx - Immunization History Hx Tetanus Toxoid Vaccination: Yes Hx Influenza Vaccination: Yes Hx Pneumococcal Vaccination: Yes - Home Medications Home Medications: Ambulatory Orders Medication Instructions Recorded Atorvastatin [Lipitor] 10 mg PO DIN #30 tab 09/19/17 Clopidogrel [Plavix] 75 mg PO DAILY #30 tab 09/19/17 Lisinopril [Zestril] 10 mg PO DAILY #30 tab 09/19/17 amLODIPine [Norvasc] 10 mg PO DAILY #30 tab 09/19/17 traZODone [Desyrel] 150 mg PO HS 30 Days #90 tab 09/19/17 Divalproex [Depakote DR] 500 mg PO Q12H 12/08/17 Gabapentin [Neurontin] 800 mg PO Q12H 12/08/17 Multivitamin [Multi-Vitamin Daily] 1 tab PO DAILY 12/08/17 Oxybutynin [Ditropan Tab] 5 mg PO DAILY 12/08/17 Venlafaxine [Effexor XR] 37.5 mg PO DAILY 12/08/17 busPIRone [Buspar] 5 mg PO DAILY 12/08/17 - Allergies Allergies/Adverse Reactions: Allergies Allergy/AdvReac Type Severity Reaction Status Date / Time FISH Allergy ITCHING Verified 12/08/17 14:11 Penicillins AdvReac URTICARIA Verified 12/08/17 14:11 Review of Systems ROS Statement: Except As Marked, All Systems Reviewed And Found Negative Physical Exam - Reviewed Nursing Documentation Reviewed: Yes Vital Signs Reviewed: Yes - Physical Exam Appears: Positive for: Non-toxic, No Acute Distress Head Exam: Positive for: ATRAUMATIC Skin: Positive for: Normal Color, Warm, Dry. Negative for: Diaphoresis, Rash Eye Exam: Positive for: EOMI, PERRL. Negative for: Nystagmus, Periorbital swelling, Conjunctival injection, Scleral icterus Neck: Positive for: Painless ROM, Supple. Negative for: Decreased ROM, Pain On Movement Of Neck Cardiovascular/Chest: Positive for: Regular Rate, Rhythm, Murmur (LUSB, 2/6). Negative for: Chest Non Tender, Gallop, JVD, Tachycardia Respiratory: Positive for: Normal Breath Sounds. Negative for: Crackles, Rales , Rhonchi, Wheezing Pulses-Radial (L): 2+ Pulses-Radial (R): 2+ Back: Positive for: Normal Inspection. 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 Negative for: Motor/Sensory Deficits, Aphasia, Facial Droop - Laboratory Results Result Diagrams: 12/08/17 15:40 12/08/17 15:40 - ECG O2 Sat by Pulse Oximetry: 99 - Progress ED Course And Treament: syncope evaluation cbc cmp coags p-bnp phos mag serum alc troponin urine drug urine dip tsh valproic acid level EKG cardiac monitoring ekg unremarkable, lab results reviewed, pt is hyponatremic, hypokalemic and has a new anemia. Discussed case with attending, Dr Peoples who will admit pt for further evaluation. Re-evaluation Time: 17:19 Condition: Re-examined, Unchanged Disposition - Clinical Impression Clinical Impression: Syncope - Patient ED Disposition Is Patient to be Admitted: Yes Discussed With : Ben Peoples Doctor Will See Patient In The: Hospital - Disposition Disposition Time: 17:18 Condition: STABLE - Pt Status Changed To: Hospital Disposition Of: Observation - POA Present On Arrival: None
[2017-12-08 15:49] LABS: BASO # 0.1 K/uL (0.0-0.2); BASO % 0.8 % (0.0-2.0); EOS % 0.5 % (0.0-4.0); HEMOGLOBIN 8.8 g/dL (12.0-16.0); LYMPH # 1.4 K/uL (1.0-4.3); LYMPH % 19.7 % (20.0-40.0); MEAN CELL VOLUME 82.5 fl (81.0-99.0); MEAN CORPUSCULAR HEMOGLOBIN 26.8 pg (27.0-31.0); MEAN CORPUSCULAR HGB CONC 32.5 g/dL (33.0-37.0); MEAN PLATELET VOLUME 7.5 fl (7.2-11.7); MONO # 0.8 K/uL (0.0-0.8); NEUT # 4.8 K/uL (1.8-7.0); RBC 3.3 Mil/uL (3.80-5.20)
[2017-12-08 16:13] LABS: BLOOD UREA NITROGEN 18 mg/dl (7-17); CALCIUM 8.5 mg/dL (8.4-10.2); GFR AFRICAN-AMERICAN > 60; GFR NON-AFRICAN AMERICAN > 60; MAGNESIUM 1.7 MG/DL (1.6-2.3)
[2017-12-08 16:14] LABS: ALB/GLOB RATIO 1.2 (1.0-2.1); ALT/SGPT 35 U/L (9-52); AST/SGOT 37 U/L (14-36); B-TYPE NATRIURETIC PEPTIDE 162 pg/ml (0-900)
[2017-12-08 16:26] LABS: PARTIAL THROMBOPLASTIN TIME 27.4 Seconds (25.6-37.1); PROTHROMBIN TIME 11.6 Seconds (9.8-13.1)
[2017-12-08 16:30] LABS: BARBITURATES, UR NEGATIVE (NEGATIVE); OPIATES, UR NEGATIVE (NEGATIVE); PHENCYCLIDINE, UR NEGATIVE (NEGATIVE)
[2017-12-08 16:49] LABS: BENZODIAZEPINES, UR POSITIVE (NEGATIVE)
[2017-12-08] MEDS ORDERED: Sodium Chloride 0.9% 1,000 ML IV STA (17:58)
[2017-12-08] MEDS ORDERED: Docusate-Senna 50 mg-8.6 mg Tab PO SCH (22:00)
[2017-12-08] MEDS: Divalproex 500 mg DR(BID formulation) PO SCH (22:02)
[2017-12-09 06:31] LABS: HEMOGLOBIN 9.6 g/dL (12.0-16.0); MEAN CELL VOLUME 84.1 fl (81.0-99.0); MEAN CORPUSCULAR HEMOGLOBIN 26.8 pg (27.0-31.0); MEAN CORPUSCULAR HGB CONC 31.9 g/dL (33.0-37.0); RBC 3.59 Mil/uL (3.80-5.20); RED CELL DISTRIBUTION WIDTH 17.4 % (11.5-14.5); WHITE BLOOD COUNT 4.5 K/uL (4.8-10.8)
[2017-12-09 06:36] LABS: ALB/GLOB RATIO 1.2 (1.0-2.1); ALBUMIN 3.8 g/dL (3.5-5.0); ALT/SGPT 22 U/L (9-52); AST/SGOT 33 U/L (14-36); BLOOD UREA NITROGEN 12 mg/dl (7-17); GFR AFRICAN-AMERICAN > 60; GFR NON-AFRICAN AMERICAN > 60
[2017-12-09 07:06] LABS: FERRITIN 10.1 ng/Ml (11.1-264.0)
[2017-12-09] MEDS: Divalproex 500 mg DR(BID formulation) PO SCH ×2 (08:18→21:24)
[2017-12-09] MEDS: Venlafaxine 37.5 mg ER Cap PO SCH (08:19)
[2017-12-09] MEDS: Multivitamin With Minerals Tab PO SCH (08:20)
--- NOTE | 2017-12-09 11:13 | RAD ---
HISTORY: syncope, anemia COMPARISON: 09/14/2017 TECHNIQUE: Chest PA and lateral FINDINGS: LUNGS: No active pulmonary disease. PLEURA: No significant pleural effusion identified. No pneumothorax apparent. CARDIOVASCULAR: Normal. OSSEOUS STRUCTURES: No significant abnormalities. VISUALIZED UPPER ABDOMEN: Normal. OTHER FINDINGS: None. IMPRESSION: No active disease.
[2017-12-09] MEDS ORDERED: Valproate 1,000 MG in Sodium Chloride 0.9% 100 ML IVPB ONE (11:30)
[2017-12-09] MEDS ORDERED: Iodixanol 320 MG/ML 100 ML BOTTLE IV ONE (11:57)
[2017-12-09] MEDS ORDERED: Sodium Chloride 0.9% 50 ML IV ONE (11:57)
--- NOTE | 2017-12-09 12:40 | CT ---
PROCEDURE: CT HEAD WITHOUT CONTRAST. HISTORY: syncope COMPARISON: 03/13/2017 TECHNIQUE: Axial computed tomography images were obtained through the head/brain without intravenous contrast. Radiation dose: Total exam DLP = 845.29 mGy-cm. This CT exam was performed using one or more of the following dose reduction techniques: Automated exposure control, adjustment of the mA and/or kV according to patient size, and/or use of iterative reconstruction technique. FINDINGS: HEMORRHAGE: No intracranial hemorrhage. BRAIN: No mass effect or edema. Mild diffuse atrophy slightly greater than expected for patient age. Mild chronic periventricular white matter ischemic change. No evidence of acute infarct. VENTRICLES: Unremarkable. No hydrocephalus. CALVARIUM: No fracture. Stable nodular midline frontal scalp calcification. . PARANASAL SINUSES: Unremarkable as visualized. No significant inflammatory changes. MASTOID AIR CELLS: Unremarkable as visualized. No inflammatory changes. OTHER FINDINGS: None. IMPRESSION: No intracranial mass, hemorrhage or evidence of acute infarct. Mild atrophy slightly greater than expected for patient age. Chronic white matter ischemic change. Incidental nodular calcification in frontal midline scalp.
[2017-12-09 13:19] LABS: HDL CHOLESTEROL 96 MG/DL (30-70)
[2017-12-09 13:22] LABS: LDL CHOLESTEROL 48 mg/dL (0-129)
--- NOTE | 2017-12-09 13:31 | CP.PCM.HP ---
History of Present Illness - History of Present Illness History of Present Illness: 52 yr old F presented to ED with complaint of syncope. 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 Her friends caught her and she did not suffer any trauma. Witnesses denied seizure like activity, urinary or fecal incontinence. The syncopal episode lasted less than 10 seconds and she regained consciousness immediately. PMHx includes 2x [place] (2005 and 2007), Bipolar, alcohol induced seizure disorder, Etoh/substance abuse, anxiety, depression. She reports abstinence from drugs for last 3 months, last Etoh use was 2 days ago (2 beers) . Patient denies chest pain, SOB, weakness, dizziness, sweating, fevers, chills , nausea or vomiting. Reports she has a greenish productive cough x 1 week. PMD: Dr. Hawley Specialists: Dr. Magdaleno-principal consulting engineer in [facility], hasn't seen her neurologist in >2yrs PMHx: 2x [place] (2005 and 2007), Bipolar, alcohol induced seizure disorder, Etoh/ substance abuse, anxiety, depression SurgHx: BTL, gallstones removed FMHx: mother is 75 and healthy, father at 70 from prostate cancer, sister was dx with breast cancer at 49 yrs old, maternal grandmother had breast cancer SocHx: quit smoking 5 days ago-using patch (20 yrs x 8-10cig daily), hx Etoh abuse (last use 2 days ago= 2 beers), denies drug use for last 3 months, lives alone Medications: see medication reconciliation Allergies: Penicillin-angiodedema Present on Admission - Present on Admission Any Indicators Present on Admission: No History of DVT/PE: No History of Uncontrolled Diabetes: No Urinary Catheter: No Decubitus Ulcer Present: No History Surgical Site Infection Following: None Review of Systems - Review of Systems All systems: reviewed and no additional remarkable complaints except (for what is mentioned in the HPI) - Constitutional Constitutional: absent: Chills, Headache - EENT Eyes: absent: Change in Vision Ears: absent: Dizziness Nose/Mouth/Throat: absent: Nasal Congestion, Nasal Discharge - Cardiovascular Cardiovascular: Chest Pain, Dyspnea, Syncope. absent: Palpitations, Pedal Edema - Respiratory Respiratory: absent: Hemoptysis - Gastrointestinal Gastrointestinal: absent: Abdominal Pain, Nausea, Vomiting - Genitourinary Genitourinary: absent: Difficulty Urinating, Dysuria - Integumentary Integumentary: absent: Bleeding Lesions - Neurological Neurological: absent: Confusion, Weakness - Psychiatric Psychiatric: absent: Homicidal Ideation, Suicidal Ideation - Endocrine Endocrine: absent: Polydipsia, Polyphagia, Polyuria - Hematologic/Lymphatic Hematologic: absent: Easy Bleeding, Easy Bruising Past Patient History - Infectious Disease Hx of Infectious Diseases: None - Tetanus Immunizations Tetanus Immunization: Unknown - Past Medical History & Family History Past Medical History?: Yes - Past Social History Smoking Status: Current Some Days Smoker - CARDIAC Hx Cardiac Disorders: Yes Hx Cardia Arrhythmia: Yes Hx Hypertension: Yes - PULMONARY Hx Respiratory Disorders: Yes Hx Chronic Obstructive Pulmonary Disease (COPD): Yes Hx Pneumonia: Yes - NEUROLOGICAL Hx Neurological Disorder: Yes Hx Migraine: Yes Hx Seizures: Yes - HEENT Hx HEENT Problems: No - RENAL Hx Chronic Kidney Disease: No - ENDOCRINE/METABOLIC Hx Endocrine Disorders: No - HEMATOLOGICAL/ONCOLOGICAL Hx Blood Disorders: Yes Hx Anemia: Yes Hx Human Immunodeficiency Virus (HIV): No - INTEGUMENTARY Hx Dermatological Problems: No - MUSCULOSKELETAL/RHEUMATOLOGICAL Hx Musculoskeletal Disorders: Yes Hx Falls: No Hx Fractures: Yes (right wrist due to fall) - GASTROINTESTINAL Hx Gastrointestinal Disorders: No - GENITOURINARY/GYNECOLOGICAL Hx Genitourinary Disorders: No Hx Sexually Transmitted Disorders: No - PSYCHIATRIC Hx Psychophysiologic Disorder: Yes Hx Anxiety: Yes Hx Bipolar Disorder: Yes Hx Depression: Yes Hx Substance Use: No - SURGICAL HISTORY Hx Surgeries: Yes Hx Cholecystectomy: Yes Hx Tubal Ligation: Yes - ANESTHESIA Hx Anesthesia: Yes Hx Anesthesia Reactions: No Hx Malignant Hyperthermia: No Has any member of the family had a problem w/ anesthesia?: No Meds Allergies/Adverse Reactions: Allergies Allergy/AdvReac Type Severity Reaction Status Date / Time FISH Allergy ITCHING Verified 12/08/17 14:11 Penicillins AdvReac URTICARIA Verified 12/08/17 14:11 Physical Exam - Constitutional Appears: No Acute Distress - Head Exam Head Exam: ATRAUMATIC, NORMOCEPHALIC - Eye Exam Eye Exam: EOMI - ENT Exam ENT Exam: Mucous Membranes Moist - Neck Exam Neck exam: Positive for: Full Rom. Negative for: Lymphadenopathy - Respiratory Exam Respiratory Exam: Wheezes (mild expiratory), NORMAL BREATHING PATTERN (on supplemental O2 via nasal cannula). absent: Rales, Rhonchi - Cardiovascular Exam Cardiovascular Exam: REGULAR RHYTHM, +S1, +S2 - GI/Abdominal Exam GI & Abdominal Exam: Normal Bowel Sounds, Soft. absent: Tenderness - Extremities Exam Extremities exam: Positive for: full ROM. Negative for: joint swelling, pedal edema - Neurological Exam Neurological exam: Alert, CN II-XII Intact, Oriented x3 - Psychiatric Exam Psychiatric exam: Normal Affect, Normal Mood - Skin Skin Exam: Dry, Intact, Warm Results - Vital Signs Recent Vital Signs: Last Vital Signs Temp 98 F 12/09/17 09:00 Pulse 68 12/09/17 09:00 Resp 18 12/09/17 09:00 BP 139/80 12/09/17 09:00 Pulse Ox 96 12/09/17 09:00 - Labs Result Diagrams: 12/09/17 04:41 12/09/17 04:41 Labs: Laboratory Results - last 24 hr 12/08/17 12/08/17 12/08/17 04:41 15:15 15:40 WBC RBC Hgb Hct MCV MCH MCHC RDW Plt Count MPV Neut % (Auto) Lymph % (Auto) Glenn % (Auto) Eos % (Auto) Baso % (Auto) Neut # Lymph # Glenn # Eos # Baso # PT INR APTT Sodium 128 L Potassium 3.5 L Chloride 95 L Carbon Dioxide 23 Anion Gap 14 BUN 18 H Creatinine 0.7 Est GFR ( Amer) > 60 Est GFR (Non-Af Amer) > 60 Random Glucose 116 H Calcium 8.5 Phosphorus 4.3 Magnesium 1.7 Iron Ferritin Total Bilirubin 0.3 AST 37 H ALT 35 Alkaline Phosphatase 92 Troponin I < 0.0120 NT-Pro-B Natriuret Pep 162 Total Protein 7.2 Albumin 4.0 Globulin 3.2 Albumin/Globulin Ratio 1.2 Vitamin B12 253 TSH 3rd Generation 0.42 L Urine Opiates Screen Negative Urine Methadone Screen Negative Ur Barbiturates Screen Negative Valproic Acid Ur Phencyclidine Scrn Negative Ur Amphetamines Screen Negative U Benzodiazepines Scrn Positive U Oth Cocaine Metabols Negative U Cannabinoids Screen Negative Alcohol, Quantitative < 10 12/08/17 12/08/17 12/08/17 15:40 15:40 15:40 WBC 7.0 RBC 3.30 L Hgb 8.8 L Hct 27.2 L MCV 82.5 D MCH 26.8 L MCHC 32.5 L RDW 17.0 H Plt Count 212 MPV 7.5 Neut % (Auto) 68.0 Lymph % (Auto) 19.7 L Glenn % (Auto) 11.0 H Eos % (Auto) 0.5 Baso % (Auto) 0.8 Neut # 4.8 Lymph # 1.4 Glenn # 0.8 Eos # 0.0 Baso # 0.1 PT 11.6 INR 1.0 APTT 27.4 Sodium Potassium Chloride Carbon Dioxide Anion Gap BUN Creatinine Est GFR ( Amer) Est GFR (Non-Af Amer) Random Glucose Calcium Phosphorus Magnesium Iron Ferritin Total Bilirubin AST ALT Alkaline Phosphatase Troponin I NT-Pro-B Natriuret Pep Total Protein Albumin Globulin Albumin/Globulin Ratio Vitamin B12 TSH 3rd Generation Urine Opiates Screen Urine Methadone Screen Ur Barbiturates Screen Valproic Acid 23.1 L Ur Phencyclidine Scrn Ur Amphetamines Screen U Benzodiazepines Scrn U Oth Cocaine Metabols U Cannabinoids Screen Alcohol, Quantitative 12/09/17 12/09/17 12/09/17 04:41 04:41 04:41 WBC 4.5 L RBC 3.59 L Hgb 9.6 L Hct 30.2 L MCV 84.1 MCH 26.8 L MCHC 31.9 L RDW 17.4 H Plt Count 231 MPV Neut % (Auto) Lymph % (Auto) Glenn % (Auto) Eos % (Auto) Baso % (Auto) Neut # Lymph # Glenn # Eos # Baso # PT INR APTT Sodium 135 Potassium 3.4 L Chloride 104 Carbon Dioxide 22 Anion Gap 12 BUN 12 Creatinine 0.6 L Est GFR ( Amer) > 60 Est GFR (Non-Af Amer) > 60 Random Glucose 78 Calcium 9.0 Phosphorus Magnesium Iron 35 L Ferritin 10.1 L Total Bilirubin 0.5 AST 33 ALT 22 Alkaline Phosphatase 69 Troponin I NT-Pro-B Natriuret Pep Total Protein 7.1 Albumin 3.8 Globulin 3.3 Albumin/Globulin Ratio 1.2 Vitamin B12 TSH 3rd Generation Urine Opiates Screen Urine Methadone Screen Ur Barbiturates Screen Valproic Acid Ur Phencyclidine Scrn Ur Amphetamines Screen U Benzodiazepines Scrn U Oth Cocaine Metabols U Cannabinoids Screen Alcohol, Quantitative Assessment & Plan - Assessment and Plan (Free Text) Assessment: 52 yr old F admitted for syncope and SOB. -admit to telemetry -supplemental O2 via nasal cannula to keep SpO2 >92% -f/u echocardiogram, chest xray, head CT, head and neck CTA -Neurology consult appreciated: will follow recommendations -Cardiology consult appreciated: will follow recommendations -heart healthy diet -f/u HbA1c, B12, vit D, lipid panel -PT/OT -SCD's for DVT prophylaxis for now - Date & Time Date: 12/09/17 Time: 08:40
--- NOTE | 2017-12-09 14:17 | CARD ---
APPROVED REPORT EXAM: Two-dimensional and M-mode echocardiogram with Doppler and color Doppler. INDICATION Syncope 2D DIMENSIONS IVSd1.60 (0.7-1.1cm)LVDd3.80 (3.9-5.9cm) PWd1.46 (0.7-1.1cm)IVSs1.92 (0.8-1.2cm) LVDs2.51 (2.5-4.0cm)FS (%) 33.9 % PWs1.76 (0.8-1.2cm)LVEF (%)55.0 (>50%) M-Mode DIMENSIONS Left Atrium (MM)3.58 (2.5-4.0cm)Aortic Root2.46 (2.2-3.7cm) Aortic Cusp Exc.1.68 (1.5-2.0cm) Mitral Valve MV E Qbxnguis83.9cm/sMV DECEL [id number] A Gyazekfi82.3cm/s MV VAK64nrX/A ratio0.8MVA (PHT)3.27cm2 TDI E/Lateral E'0.0E/Medial E'0.0 Tricuspid Valve TR Peak [id number]/sRAP [id number] Peak Gr.32mmHg PCIR33pfCn LEFT VENTRICLE The left ventricle is normal size. There is mild to moderate concentric left ventricular hypertrophy. The left ventricular function is normal. The left ventricular ejection fraction is within the normal range. There is normal LV segmental wall motion. Transmitral Doppler flow pattern is Grade I-abnormal relaxation pattern. RIGHT VENTRICLE The right ventricle is normal size. There is normal right ventricular wall thickness. The right ventricular systolic function is normal. ATRIA The left atrium size is normal. The right atrium size is normal. AORTIC VALVE The aortic valve is mildly thickened. No aortic regurgitation is present. There is no aortic valvular stenosis. MITRAL VALVE The mitral valve is mildly thickened. There is no mitral valve stenosis. There is no mitral valve regurgitation noted. TRICUSPID VALVE The tricuspid valve is normal in structure. There is mild tricuspid regurgitation. There is mild pulmonary hypertension. PULMONIC VALVE The pulmonary valve is normal in structure. There is trace pulmonic valvular regurgitation. GREAT VESSELS The aortic root is normal in size. The IVC was not visualized. PERICARDIAL EFFUSION The pericardium appears normal. <Conclusion> The left ventricle is normal size. There is mild to moderate concentric left ventricular hypertrophy. The left ventricular function is normal. The left ventricular ejection fraction is within the normal range. There is normal LV segmental wall motion. Transmitral Doppler flow pattern is Grade I-abnormal relaxation pattern. There is mild tricuspid regurgitation. There is mild pulmonary hypertension.
--- NOTE | 2017-12-09 15:00 | CT ---
PROCEDURE: CTA HEAD AND NECK WITH CONTRAST HISTORY: Syncope COMPARISON: None available. TECHNIQUE: Initial noncontrast head CT was performed. Subsequently, CT angiogram of the head and neck were performed after the intravenous administration of 80 mL of Omnipaque 350. Contiguous 1.5mm thick images were obtained in the axial plane of the neck. 2-D coronal and sagittal MPR images were obtained. Imaging postprocessing was performed with 3-D images also obtained. A delayed contrast head CT was also obtained. This CT exam was performed using one or more of the following dose reduction techniques: Automated exposure control, adjustment of the mA and/or kV according to patient size, and/or use of iterative reconstruction technique. Contrast dose: 99 cc Visipaque 320 Radiation dose: Total exam DLP = 558.32 mGy-cm. FINDINGS: HEAD: Right: The intracranial internal carotid artery, and anterior and middle cerebral arteries are widely patent. The right A1 segment is hypoplastic, an anatomic variant. There is early bifurcation of the right M1 segment. Left: The intracranial internal carotid artery, and anterior and middle cerebral arteries are widely patent. Posterior circulation: The visualized intracranial vertebral arteries, basilar artery and posterior cerebral arteries are widely patent. The right vertebral artery is hypoplastic, an anatomic variant. There is no intracranial saccular aneurysm. NECK: There is a 2 vessel aortic arch with common origin of the innominate and left common carotid artery is. There is no stenosis at the origins of the great vessels at the level of the aortic arch. Right Carotid: On the right, the common carotid, internal carotid and external carotid arteries are widely patent. There are calcified and noncalcified atherosclerotic plaques the proximal internal carotid artery with approximately 70 percent stenosis at the origin and mild poststenotic dilatation. There is no hemodynamically significant stenosis in the internal carotid artery by NASCET criteria. Left Carotid: On the left, the common carotid, internal carotid and external carotid arteries are widely patent. There or calcified atherosclerotic plaques in the proximal internal carotid artery. There is no hemodynamically significant stenosis in the internal carotid artery by NASCET CT criteria. The vertebral arteries are widely patent. The right vertebral artery is hypoplastic, an anatomic variant. IMPRESSION: 1. Approximately 70% (hemodynamically significant) stenosis at the left internal carotid artery origin with mild poststenotic dilatation. 2. No evidence of hemodynamically significant stenosis in the right internal carotid artery. 3. Patent bilateral vertebral arteries. The right vertebral artery is hypoplastic, an anatomic variant.
--- NOTE | 2017-12-09 16:41 | CP.PCM.CON ---
History of Present Illness - History of Present Illness History of Present Illness: 52 y/o female with extensive psych hx, ETOH/polysubstance abuse hx, seizure disorder and cardiac hx presents for evaluation s/p syncopal episode. Pt reports she was in her usual state of good health this morning and was preparing to go see friends when she felt her heart racing and gradually lost consciousness. Fiance and friends nearby noticed the symptoms and caught the patient and put her in a chair The syncopal episode last approx 5 seconds, the pt gradually regained consciousness but was disoriented. No urinary/bladder incontenence/tongue biting or seizure like activity during the episode. S/p syncope, the pt gradually became alert and oriented again and only residual symptoms were left arm pain. Last seizure was 3 months ago and fiance at bedside reports this was not similar in anyway to that. Last time ETOH consumed was last night (approx 2 beer), denies any substance abuse for the past 3 months. No other complaints. Denies headaches, changes in vision, N/V/D, diaphoresis, urinary symptoms. Review of Systems - Review of Systems All systems: reviewed and no additional remarkable complaints except - Constitutional Constitutional: As Per HPI Past Patient History - Infectious Disease Hx of Infectious Diseases: None - Tetanus Immunizations Tetanus Immunization: Unknown - Past Medical History & Family History Past Medical History?: Yes - Past Social History Smoking Status: Current Some Days Smoker - CARDIAC Hx Cardiac Disorders: Yes Hx Cardia Arrhythmia: Yes Hx Hypertension: Yes - PULMONARY Hx Respiratory Disorders: Yes Hx Chronic Obstructive Pulmonary Disease (COPD): Yes Hx Pneumonia: Yes - NEUROLOGICAL Hx Neurological Disorder: Yes Hx Migraine: Yes Hx Seizures: Yes - HEENT Hx HEENT Problems: No - RENAL Hx Chronic Kidney Disease: No - ENDOCRINE/METABOLIC Hx Endocrine Disorders: No - HEMATOLOGICAL/ONCOLOGICAL Hx Blood Disorders: Yes Hx Anemia: Yes Hx Human Immunodeficiency Virus (HIV): No - INTEGUMENTARY Hx Dermatological Problems: No - MUSCULOSKELETAL/RHEUMATOLOGICAL Hx Musculoskeletal Disorders: Yes Hx Falls: No Hx Fractures: Yes (right wrist due to fall) - GASTROINTESTINAL Hx Gastrointestinal Disorders: No - GENITOURINARY/GYNECOLOGICAL Hx Genitourinary Disorders: No Hx Sexually Transmitted Disorders: No - PSYCHIATRIC Hx Psychophysiologic Disorder: Yes Hx Anxiety: Yes Hx Bipolar Disorder: Yes Hx Depression: Yes Hx Substance Use: No - SURGICAL HISTORY Hx Surgeries: Yes Hx Cholecystectomy: Yes Hx Tubal Ligation: Yes - ANESTHESIA Hx Anesthesia: Yes Hx Anesthesia Reactions: No Hx Malignant Hyperthermia: No Has any member of the family had a problem w/ anesthesia?: No Meds Allergies/Adverse Reactions: Allergies Allergy/AdvReac Type Severity Reaction Status Date / Time FISH Allergy ITCHING Verified 12/08/17 14:11 Penicillins AdvReac URTICARIA Verified 12/08/17 14:11 - Medications Medications: Current Medications Amlodipine Besylate (Norvasc) 10 mg PO DAILY [facility] Last Admin: 12/09/17 08:19 Dose: 10 mg Atorvastatin Calcium (Lipitor) 10 mg PO DIN [facility] Last Admin: 12/09/17 16:23 Dose: 10 mg Buspirone HCl (Buspar) 5 mg PO DAILY [facility] Last Admin: 12/09/17 08:18 Dose: 5 mg Clopidogrel Bisulfate (Plavix) 75 mg PO DAILY [facility] Last Admin: 12/09/17 08:18 Dose: 75 mg Cyanocobalamin (Vitamin B12 1000 Mcg/Ml Inj) 1,000 mcg SC DAILY [facility] Last Admin: 12/09/17 09:39 Dose: 1,000 mcg Divalproex Sodium (Depakote Dr(*Bid*)) 500 mg PO Q12H [facility] Last Admin: 12/09/17 08:18 Dose: 500 mg Gabapentin (Neurontin) 800 mg PO Q12H [facility] Last Admin: 12/09/17 08:19 Dose: 800 mg Ibuprofen (Motrin Tab) 600 mg PO Q6 PRN PRN Reason: Pain, moderate (4-7) Last Admin: 12/09/17 14:04 Dose: 600 mg Lisinopril (Zestril) 10 mg PO DAILY [facility] Last Admin: 12/09/17 08:20 Dose: 10 mg Multivitamins/Minerals (Therapeutic-M Tab) 1 tab PO DAILY [facility] Last Admin: 12/09/17 08:20 Dose: 1 tab Oxybutynin Chloride (Ditropan Tab) 5 mg PO DAILY [facility] Last Admin: 12/09/17 08:18 Dose: 5 mg Trazodone HCl (Desyrel) 150 mg PO HS [facility] Last Admin: 12/08/17 22:02 Dose: 150 mg Venlafaxine HCl (Effexor Xr) 37.5 mg PO DAILY [facility] Last Admin: 12/09/17 08:19 Dose: 37.5 mg Physical Exam - Constitutional Appears: Chronically Ill - Head Exam Head Exam: ATRAUMATIC, NORMOCEPHALIC - Eye Exam Eye Exam: PERRL - ENT Exam ENT Exam: Mucous Membranes Dry - Neck Exam Neck exam: Negative for: Lymphadenopathy - Respiratory Exam Respiratory Exam: Decreased Breath Sounds - Cardiovascular Exam Cardiovascular Exam: REGULAR RHYTHM - GI/Abdominal Exam GI & Abdominal Exam: Diminished Bowel Sounds, Soft. absent: Tenderness - Rectal Exam Rectal Exam: Deferred - Exam Exam: NORMAL INSPECTION - Extremities Exam Extremities exam: Negative for: pedal edema - Back Exam Back exam: absent: CVA tenderness (L), CVA tenderness (R) - Neurological Exam Neurological exam: Alert, CN II-XII Intact, Oriented x3, Reflexes Normal Results - Vital Signs Recent Vital Signs: Last Vital Signs Temp 98 F 12/09/17 16:09 Pulse 74 12/09/17 16:09 Resp 20 12/09/17 16:09 BP 138/74 12/09/17 16:09 Pulse Ox 99 12/09/17 16:09 - Labs Result Diagrams: 12/09/17 04:41 12/09/17 04:41 Labs: Laboratory Results - last 24 hr 12/08/17 12/08/17 12/09/17 04:41 15:15 04:41 WBC 4.5 L RBC 3.59 L Hgb 9.6 L Hct 30.2 L MCV 84.1 MCH 26.8 L MCHC 31.9 L RDW 17.4 H Plt Count 231 Sodium Potassium Chloride Carbon Dioxide Anion Gap BUN Creatinine Est GFR ( Amer) Est GFR (Non-Af Amer) Random Glucose Calcium Iron Ferritin Total Bilirubin AST ALT Alkaline Phosphatase Total Protein Albumin Globulin Albumin/Globulin Ratio Triglycerides Cholesterol LDL Cholesterol Direct HDL Cholesterol Vitamin B12 253 U Benzodiazepines Scrn Positive 12/09/17 12/09/17 12/09/17 04:41 04:41 12:34 WBC RBC Hgb Hct MCV MCH MCHC RDW Plt Count Sodium 135 Potassium 3.4 L Chloride 104 Carbon Dioxide 22 Anion Gap 12 BUN 12 Creatinine 0.6 L Est GFR ( Amer) > 60 Est GFR (Non-Af Amer) > 60 Random Glucose 78 Calcium 9.0 Iron 35 L Ferritin 10.1 L Total Bilirubin 0.5 AST 33 ALT 22 Alkaline Phosphatase 69 Total Protein 7.1 Albumin 3.8 Globulin 3.3 Albumin/Globulin Ratio 1.2 Triglycerides 44 D Cholesterol 154 LDL Cholesterol Direct 48 HDL Cholesterol 96 H Vitamin B12 > 1000 H U Benzodiazepines Scrn Assessment & Plan (1) Syncope Status: Acute (2) Anemia Status: Acute (3) Bipolar 1 disorder Status: Acute (4) Bronchitis Status: Acute
--- NOTE | 2017-12-09 18:09 | CARD ---
APPROVED REPORT EKG Measurement Heart [id number] OR [id number] <Conclusion> Normal sinus rhythm Prolonged QT Abnormal ECG
--- NOTE | 2017-12-09 19:07 | CP.PCM.CON ---
History of Present Illness - History of Present Illness History of Present Illness: Mrs. Akins is a 52-year-old woman with a past medical history of 2x GA ( 2005 and 2007), Bipolar, alcohol induced seizure disorder, Etoh/substance abuse , anxiety, depression. She reports abstinence from drugs for last 3 months, last alcohol use was 2 days ago (2 beers). 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 Her friends caught her and she did not suffer any trauma. Witnesses denied seizure like activity, urinary or fecal incontinence. The syncopal episode lasted less than 10 seconds and she regained consciousness immediately. Currently, the patient is back to baseline. CT of the head did not show any acute findings. 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 Review of Systems - Review of Systems All systems: reviewed and no additional remarkable complaints except Past Patient History - Infectious Disease Hx of Infectious Diseases: None - Tetanus Immunizations Tetanus Immunization: Unknown - Past Medical History & Family History Past Medical History?: Yes - Past Social History Smoking Status: Current Some Days Smoker - CARDIAC Hx Cardiac Disorders: Yes Hx Cardia Arrhythmia: Yes Hx Hypertension: Yes - PULMONARY Hx Respiratory Disorders: Yes Hx Chronic Obstructive Pulmonary Disease (COPD): Yes Hx Pneumonia: Yes - NEUROLOGICAL Hx Neurological Disorder: Yes Hx Migraine: Yes Hx Seizures: Yes - HEENT Hx HEENT Problems: No - RENAL Hx Chronic Kidney Disease: No - ENDOCRINE/METABOLIC Hx Endocrine Disorders: No - HEMATOLOGICAL/ONCOLOGICAL Hx Blood Disorders: Yes Hx Anemia: Yes Hx Human Immunodeficiency Virus (HIV): No - INTEGUMENTARY Hx Dermatological Problems: No - MUSCULOSKELETAL/RHEUMATOLOGICAL Hx Musculoskeletal Disorders: Yes Hx Falls: No Hx Fractures: Yes (right wrist due to fall) - GASTROINTESTINAL Hx Gastrointestinal Disorders: No - GENITOURINARY/GYNECOLOGICAL Hx Genitourinary Disorders: No Hx Sexually Transmitted Disorders: No - PSYCHIATRIC Hx Psychophysiologic Disorder: Yes Hx Anxiety: Yes Hx Bipolar Disorder: Yes Hx Depression: Yes Hx Substance Use: No - SURGICAL HISTORY Hx Surgeries: Yes Hx Cholecystectomy: Yes Hx Tubal Ligation: Yes - ANESTHESIA Hx Anesthesia: Yes Hx Anesthesia Reactions: No Hx Malignant Hyperthermia: No Has any member of the family had a problem w/ anesthesia?: No Meds Allergies/Adverse Reactions: Allergies Allergy/AdvReac Type Severity Reaction Status Date / Time FISH Allergy ITCHING Verified 12/08/17 14:11 Penicillins AdvReac URTICARIA Verified 12/08/17 14:11 - Medications Medications: Current Medications Amlodipine Besylate (Norvasc) 10 mg PO DAILY [facility] Last Admin: 12/09/17 08:19 Dose: 10 mg Atorvastatin Calcium (Lipitor) 10 mg PO DIN [facility] Last Admin: 12/09/17 16:23 Dose: 10 mg Buspirone HCl (Buspar) 5 mg PO DAILY [facility] Last Admin: 12/09/17 08:18 Dose: 5 mg Clopidogrel Bisulfate (Plavix) 75 mg PO DAILY [facility] Last Admin: 12/09/17 08:18 Dose: 75 mg Cyanocobalamin (Vitamin B12 1000 Mcg/Ml Inj) 1,000 mcg SC DAILY [facility] Last Admin: 12/09/17 09:39 Dose: 1,000 mcg Divalproex Sodium (Depakote Dr(*Bid*)) 500 mg PO Q12H [facility] Last Admin: 12/09/17 08:18 Dose: 500 mg Gabapentin (Neurontin) 800 mg PO Q12H [facility] Last Admin: 12/09/17 08:19 Dose: 800 mg Ibuprofen (Motrin Tab) 600 mg PO Q6 PRN PRN Reason: Pain, moderate (4-7) Last Admin: 12/09/17 14:04 Dose: 600 mg Lisinopril (Zestril) 10 mg PO DAILY [facility] Last Admin: 12/09/17 08:20 Dose: 10 mg Multivitamins/Minerals (Therapeutic-M Tab) 1 tab PO DAILY [facility] Last Admin: 12/09/17 08:20 Dose: 1 tab Oxybutynin Chloride (Ditropan Tab) 5 mg PO DAILY [facility] Last Admin: 12/09/17 08:18 Dose: 5 mg Trazodone HCl (Desyrel) 150 mg PO HS [facility] Last Admin: 12/08/17 22:02 Dose: 150 mg Venlafaxine HCl (Effexor Xr) 37.5 mg PO DAILY [facility] Last Admin: 12/09/17 08:19 Dose: 37.5 mg Physical Exam - Constitutional Appears: Well - Head Exam Head Exam: ATRAUMATIC, NORMAL INSPECTION, NORMOCEPHALIC - Eye Exam Eye Exam: EOMI, Normal appearance, PERRL - ENT Exam ENT Exam: Mucous Membranes Moist, Normal Exam - Neck Exam Neck exam: Positive for: Normal Inspection - Respiratory Exam Respiratory Exam: Clear to Auscultation Bilateral, NORMAL BREATHING PATTERN - Cardiovascular Exam Cardiovascular Exam: REGULAR RHYTHM - GI/Abdominal Exam GI & Abdominal Exam: Normal Bowel Sounds, Soft. absent: Tenderness - Rectal Exam Rectal Exam: Deferred - Extremities Exam Extremities exam: Positive for: normal inspection - Back Exam Back exam: NORMAL INSPECTION - Neurological Exam Neurological exam: Abnormal Gait, Alert, CN II-XII Intact, Oriented x3, Reflexes Normal Additional comments: Right pronator drift on exam, RLE was normal, LUE and LLE were normal in strength. Sensation was intact throughout, reflexes were normal, plantar responses were downgoing, gait was wide-based, Romberg negative. - Psychiatric Exam Psychiatric exam: Normal Affect, Normal Mood Results - Vital Signs Recent Vital Signs: Last Vital Signs Temp 98 F 12/09/17 16:48 Pulse 74 12/09/17 16:48 Resp 12 12/09/17 16:48 BP 138/74 12/09/17 16:48 Pulse Ox 99 12/09/17 16:48 - Labs Result Diagrams: 12/09/17 04:41 12/09/17 04:41 Labs: Laboratory Results - last 24 hr 12/08/17 12/09/17 12/09/17 04:41 04:41 04:41 WBC 4.5 L RBC 3.59 L Hgb 9.6 L Hct 30.2 L MCV 84.1 MCH 26.8 L MCHC 31.9 L RDW 17.4 H Plt Count 231 Sodium 135 Potassium 3.4 L Chloride 104 Carbon Dioxide 22 Anion Gap 12 BUN 12 Creatinine 0.6 L Est GFR ( Amer) > 60 Est GFR (Non-Af Amer) > 60 Random Glucose 78 Calcium 9.0 Iron Ferritin 10.1 L Total Bilirubin 0.5 AST 33 ALT 22 Alkaline Phosphatase 69 Total Protein 7.1 Albumin 3.8 Globulin 3.3 Albumin/Globulin Ratio 1.2 Triglycerides Cholesterol LDL Cholesterol Direct HDL Cholesterol Vitamin B12 253 12/09/17 12/09/17 04:41 12:34 WBC RBC Hgb Hct MCV MCH MCHC RDW Plt Count Sodium Potassium Chloride Carbon Dioxide Anion Gap BUN Creatinine Est GFR ( Amer) Est GFR (Non-Af Amer) Random Glucose Calcium Iron 35 L Ferritin Total Bilirubin AST ALT Alkaline Phosphatase Total Protein Albumin Globulin Albumin/Globulin Ratio Triglycerides 44 D Cholesterol 154 LDL Cholesterol Direct 48 HDL Cholesterol 96 H Vitamin B12 > 1000 H Assessment & Plan (1) Syncope Assessment and Plan: Likely neurocardiogenic; however, with the LICA stenosis, I would like to obtain MRI of the brain to rule out ischemia and also obtain an EEG since she states that she has a history of seizures. The EEG may be done as an outpatient. She should remain on aspirin and plavix for stroke prevention in the setting of severe and hemodynamically significant stenosis of the left ICA. Continue fluids with NS at 100 mL/hr. Cardiac work-up per cardiology. Status: Acute Priority: High
--- NOTE | 2017-12-09 19:13 | CP.PCM.CON ---
History of Present Illness - History of Present Illness History of Present Illness: I was asked to evaluate patient by Dr jensen. Patient is a 52 year old female with PMH HTN hypercholesterolemia, CAD (by her report) who presents with chest pain. The patient has had intermittent chest pain for the past week. She describes it as left sided and pressure like. She became concerned today when the pain persisted, and she had a syncopal event. She has dyspnea on exertion. Review of Systems - Constitutional Constitutional: absent: As Per HPI, Anorexia, Chills, Daytime Sleepiness, Excessive Sweating, Fatigue, Fever, Frequent Falls, Headache, Increased Appetite , Lethargy, Malaise, Night Sweats, Snoring, Sleep Apnea, Weight Gain, Weight Loss, Weakness, Other - EENT Eyes: absent: As Per HPI, Blind Spots, Blurred Vision, Change in Vision, Decreased Night Vision, Diplopia, Discharge, Dry Eye, Exophthalmos, Floaters, Irritation, Itchy Eyes, Loss of Peripheral Vision, Pain, Photophobia, Requires Corrective Lenses, Sees Flashes, Spots in Vision, Tunnel Vision, Other Visual Disturbances, Loss of Vision, Other Ears: absent: As Per HPI, Decreased Hearing, Ear Discharge, Ear Pain, Tinnitus, Abnormal Hearing, Disequilibrium, Dizziness, Other Nose/Mouth/Throat: absent: As Per HPI, Epistaxis, Nasal Congestion, Nasal Discharge, Nasal Obstruction, Nasal Trauma, Nose Pain, Post Nasal Drip, Sinus Pain, Sinus Pressure, Bleeding Gums, Change in Voice, Dental Pain, Dry Mouth, Dysphagia, Halitosis, Hoarsness, Lip Swelling, Mouth Lesions, Mouth Pain, Odynophagia, Sore Throat, Throat Swelling, Tongue Swelling, Facial Pain, Neck Pain, Neck Mass, Other - Cardiovascular Cardiovascular: Chest Pain at Rest, Dyspnea, Syncope - Respiratory Respiratory: absent: As Per HPI, Cough, Dyspnea, Hemoptysis, Dyspnea on Exertion , Wheezing, Snoring, Stridor, Pain on Inspiration, Chest Congestion, Excessive Mucous Production, Change in Mucous Color, Pain with Coughing, Other - Gastrointestinal Gastrointestinal: absent: As Per HPI, Abdominal Pain, Belching, Bloating, Change in Bowel Habits, Change in Stool Character, Coffee Ground Emesis, Constipation, Cramping, Diarrhea, Dyspepsia, Dysphagia, Early Satiety, Excessive Flatus, Fecal Incontinence, Heartburn, Hematemesis, Hematochezia, Loose Stools, Melena, Nausea, Odynophagia, Temesmus, Vomiting, Other - Genitourinary Genitourinary: absent: As Per HPI, Change in Urinary Stream, Difficulty Urinating, Dysuria, Flank Pain, Hematuria, Pyuria, Nocturia, Urinary Incontinence, Urinary Frequency, Urinary Hesitance, Urinary Urgency, Voiding Freq/Small Amts, Freq UTI, Hx Renal/Bladder Calculi, Hx /Renal Surgery, Bladder Distension, Other - Musculoskeletal Musculoskeletal: absent: As Per HPI, Abnormal Gait, Arthralgias, Atrophy, Back Pain, Deformity, Joint Swelling, Limited Range of Motion, Loss of Height, Muscle Cramps, Muscle Weakness, Myalgias, Neck Pain, Numbness, Radiating Pain into Limb, Stiffness, Tingling, Other - Integumentary Integumentary: absent: As Per HPI, Acne, Alopecia, Bleeding Lesions, Change in Hair, Change in Nails, Change in Pigmentation, Changing Lesions, Dry Skin, Erythema, Furuncle, Hirsutism, Lesions, New Lesions, Non-Healing Lesions, Photosensitivity, Pruritus, Rash, Skin Pain, Skin Ulcer, Sores, Striae, Swelling , Unusual Bruising, Wounds, Jaundice, Other - Neurological Neurological: absent: As Per HPI, Abnormal Gait, Abnormal Hearing, Abnormal Movements, Abnormal Speech, Behavioral Changes, Burning Sensations, Confusion, Convulsions, Disequilibrium, Dizziness, Numbness, Focal Weakness, Frequent Falls , Headaches, Lack of Coordination, Loss of Vision, Memory Loss, Paresthesias, Radicular Pain, Restless Legs, Sensory Deficit, Syncope, Tingling, Tremor, Vertigo, Weakness, Other Visual Disturbances, Other - Psychiatric Psychiatric: absent: As Per HPI, Abnormal Sleep Pattern, Anhedonia, Anxiety, Auditory Hallucinations, Behavioral Changes, Change in Appetite, Change in Libido, Confusion, Depression, Difficulty Concentrating, Hallucinations, Homicidal Ideation, Hopelessness, Irritability, Memory Loss, Mood Swings, Panic Attacks, Paranoia, Suicidal Ideation, Visual Hallucinations, Tactile Hallucinations, Other - Endocrine Endocrine: absent: As Per HPI, Change in Body Appearance, Change in Libido, Cold Intolorance, Deepening of Voice, Excessive Sweating, Fatigue, Flushing, Heat Intolorance, Increase in Ring/Shoe/Hat Size, Palpitations, Polydipsia, Polyphagia, Polyuria, Other Past Patient History - Infectious Disease Hx of Infectious Diseases: None - Tetanus Immunizations Tetanus Immunization: Unknown - Past Medical History & Family History Past Medical History?: Yes - Past Social History Smoking Status: Current Some Days Smoker - CARDIAC Hx Cardiac Disorders: Yes Hx Cardia Arrhythmia: Yes Hx Hypertension: Yes - PULMONARY Hx Respiratory Disorders: Yes Hx Chronic Obstructive Pulmonary Disease (COPD): Yes Hx Pneumonia: Yes - NEUROLOGICAL Hx Neurological Disorder: Yes Hx Migraine: Yes Hx Seizures: Yes - HEENT Hx HEENT Problems: No - RENAL Hx Chronic Kidney Disease: No - ENDOCRINE/METABOLIC Hx Endocrine Disorders: No - HEMATOLOGICAL/ONCOLOGICAL Hx Blood Disorders: Yes Hx Anemia: Yes Hx Human Immunodeficiency Virus (HIV): No - INTEGUMENTARY Hx Dermatological Problems: No - MUSCULOSKELETAL/RHEUMATOLOGICAL Hx Musculoskeletal Disorders: Yes Hx Falls: No Hx Fractures: Yes (right wrist due to fall) - GASTROINTESTINAL Hx Gastrointestinal Disorders: No - GENITOURINARY/GYNECOLOGICAL Hx Genitourinary Disorders: No Hx Sexually Transmitted Disorders: No - PSYCHIATRIC Hx Psychophysiologic Disorder: Yes Hx Anxiety: Yes Hx Bipolar Disorder: Yes Hx Depression: Yes Hx Substance Use: No - SURGICAL HISTORY Hx Surgeries: Yes Hx Cholecystectomy: Yes Hx Tubal Ligation: Yes - ANESTHESIA Hx Anesthesia: Yes Hx Anesthesia Reactions: No Hx Malignant Hyperthermia: No Has any member of the family had a problem w/ anesthesia?: No Meds Allergies/Adverse Reactions: Allergies Allergy/AdvReac Type Severity Reaction Status Date / Time FISH Allergy ITCHING Verified 12/08/17 14:11 Penicillins AdvReac URTICARIA Verified 12/08/17 14:11 - Medications Medications: Current Medications Amlodipine Besylate (Norvasc) 10 mg PO DAILY [facility] Last Admin: 12/09/17 08:19 Dose: 10 mg Atorvastatin Calcium (Lipitor) 10 mg PO DIN [facility] Last Admin: 12/09/17 16:23 Dose: 10 mg Buspirone HCl (Buspar) 5 mg PO DAILY [facility] Last Admin: 12/09/17 08:18 Dose: 5 mg Clopidogrel Bisulfate (Plavix) 75 mg PO DAILY [facility] Last Admin: 12/09/17 08:18 Dose: 75 mg Cyanocobalamin (Vitamin B12 1000 Mcg/Ml Inj) 1,000 mcg SC DAILY [facility] Last Admin: 12/09/17 09:39 Dose: 1,000 mcg Divalproex Sodium (Depakote Dr(*Bid*)) 500 mg PO Q12H [facility] Last Admin: 12/09/17 08:18 Dose: 500 mg Gabapentin (Neurontin) 800 mg PO Q12H [facility] Last Admin: 12/09/17 08:19 Dose: 800 mg Ibuprofen (Motrin Tab) 600 mg PO Q6 PRN PRN Reason: Pain, moderate (4-7) Last Admin: 12/09/17 14:04 Dose: 600 mg Lisinopril (Zestril) 10 mg PO DAILY [facility] Last Admin: 12/09/17 08:20 Dose: 10 mg Multivitamins/Minerals (Therapeutic-M Tab) 1 tab PO DAILY [facility] Last Admin: 12/09/17 08:20 Dose: 1 tab Oxybutynin Chloride (Ditropan Tab) 5 mg PO DAILY [facility] Last Admin: 12/09/17 08:18 Dose: 5 mg Trazodone HCl (Desyrel) 150 mg PO HS [facility] Last Admin: 12/08/17 22:02 Dose: 150 mg Venlafaxine HCl (Effexor Xr) 37.5 mg PO DAILY [facility] Last Admin: 12/09/17 08:19 Dose: 37.5 mg Physical Exam - Constitutional Appears: Non-toxic - Head Exam Head Exam: NORMAL INSPECTION - Eye Exam Eye Exam: Normal appearance - ENT Exam ENT Exam: Mucous Membranes Moist - Neck Exam Neck exam: Positive for: Normal Inspection - Respiratory Exam Respiratory Exam: NORMAL BREATHING PATTERN - Cardiovascular Exam Cardiovascular Exam: REGULAR RHYTHM - GI/Abdominal Exam GI & Abdominal Exam: Normal Bowel Sounds - Rectal Exam Rectal Exam: Deferred - Extremities Exam Extremities exam: Negative for: pedal edema - Back Exam Back exam: NORMAL INSPECTION - Neurological Exam Neurological exam: Alert, Oriented x3 - Psychiatric Exam Psychiatric exam: Normal Affect - Skin Skin Exam: Normal Color Results - Vital Signs Recent Vital Signs: Last Vital Signs Temp 98 F 12/09/17 16:48 Pulse 74 12/09/17 16:48 Resp 12 12/09/17 16:48 BP 138/74 12/09/17 16:48 Pulse Ox 99 12/09/17 16:48 - Labs Result Diagrams: 12/09/17 04:41 12/09/17 04:41 Labs: Laboratory Results - last 24 hr 01/18/18 01/19/18 01/19/18 04:41 04:41 04:41 WBC 4.5 L RBC 3.59 L Hgb 9.6 L Hct 30.2 L MCV 84.1 MCH 26.8 L MCHC 31.9 L RDW 17.4 H Plt Count 231 Sodium 135 Potassium 3.4 L Chloride 104 Carbon Dioxide 22 Anion Gap 12 BUN 12 Creatinine 0.6 L Est GFR ( Amer) > 60 Est GFR (Non-Af Amer) > 60 Random Glucose 78 Calcium 9.0 Iron Ferritin 10.1 L Total Bilirubin 0.5 AST 33 ALT 22 Alkaline Phosphatase 69 Total Protein 7.1 Albumin 3.8 Globulin 3.3 Albumin/Globulin Ratio 1.2 Triglycerides Cholesterol LDL Cholesterol Direct HDL Cholesterol Vitamin B12 253 12/09/17 12/09/17 04:41 12:34 WBC RBC Hgb Hct MCV MCH MCHC RDW Plt Count Sodium Potassium Chloride Carbon Dioxide Anion Gap BUN Creatinine Est GFR ( Amer) Est GFR (Non-Af Amer) Random Glucose Calcium Iron 35 L Ferritin Total Bilirubin AST ALT Alkaline Phosphatase Total Protein Albumin Globulin Albumin/Globulin Ratio Triglycerides 44 D Cholesterol 154 LDL Cholesterol Direct 48 HDL Cholesterol 96 H Vitamin B12 > 1000 H - EKG Data EKG Interpreted by: Myself EKG shows normal: Sinus rhythm Assessment & Plan (1) Syncope Assessment and Plan: neuro evaluation Status: Acute (2) Chest pain Assessment and Plan: the cardiac enzymes are negative. will need 2 more sets of cardaic enzymes. will likely need a stress test Status: Acute (3) HTN (hypertension) Assessment and Plan: medical mgmt Status: Acute
[2017-12-10 08:15] VITALS: RESP 20
[2017-12-10] MEDS: Divalproex 500 mg DR(BID formulation) PO SCH (09:56)
[2017-12-10] MEDS: Venlafaxine 37.5 mg ER Cap PO SCH (09:59)
[2017-12-10] MEDS: Multivitamin With Minerals Tab PO SCH (10:00)
--- NOTE | 2017-12-10 12:01 | MRI ---
PROCEDURE: MRI BRAIN WITHOUT CONTRAST HISTORY: syncope and LICA stenosis COMPARISON: Head CT without contrast 12/09/2017. TECHNIQUE: Multiplanar, multisequence MR images of the brain were obtained without intravenous contrast enhancement. FINDINGS: HEMORRHAGE: None DWI: No evidence of an acute or early subacute infarction. BRAIN PARENCHYMA: Good corticomedullary differentiation is seen. There is minimal but distinct, diffuse expansion of the ventriculosulcal and cisternal spaces is appreciated with minimal white matter signal changes compatible with diffuse cerebral atrophy and chronic microangiopathy. No suspicious extra-axial fluid collection is identified and the midline brain anatomy appears grossly nonfocal as imaged. There is no mass effect throughout. VENTRICLES: Unremarkable. No hydrocephalus. CRANIUM: Unremarkable. Instill note is made of a calcified lesion in the left frontal scalp anteriorly which likely reflects calcified sebaceous cyst or other a nonaggressive benign lesion of subcutaneous tissue ORBITS: Grossly unremarkable. PARANASAL SINUSES/MASTOIDS: Clear VASCULAR SYSTEM: Skull base flow voids intact. OTHER FINDINGS: None. IMPRESSION: Minimal diffuse cerebral atrophy chronic microangiopathy. No acute intracranial findings including hemorrhage in brain infarction.
[2017-12-10 12:17] VITALS: BP 149/83; PULSE 75; TEMP 97.9; O2SAT 99
[2017-12-12 08:04] LABS: HEPATITIS B SURFACE AG NEGATIVE (NEGATIVE)
[2017-12-12 08:21] LABS: HEPATITIS C ANTIBODY Negative (NEGATIVE)
[2017-12-12 08:50] LABS: HEPATITIS A IGM NEGATIVE (NEGATIVE)
[2017-12-12 12:34] LABS: HEPATITIS B CORE AB Negative (NEGATIVE)
== END 2017-12-10 14:23 | disposition home or self-care (01) | DRG 141 ==
LOC: H.ER 14:09 → H.ERHOLD 16:26 → H.TEL 18:35 → OBSVTOIN 12-09 16:22
PROVIDERS: ADMIT Family Medicine; ATTEND Family Medicine
DX: R55 Syncope and collapse (principal); I65.22 Occlusion and stenosis of left carotid artery; J44.9 Chronic obstructive pulmonary disease, unspecified; G40.909 Epilepsy, unspecified, not intractable, without status epilepticus; I25.10 Atherosclerotic heart disease of native coronary artery without angina pectoris; E78.00 Pure hypercholesterolemia, unspecified; I10 Essential (primary) hypertension; F31.9 Bipolar disorder, unspecified; F60.9 Personality disorder, unspecified; F17.200 Nicotine dependence, unspecified, uncomplicated; I25.2 Old myocardial infarction; Z79.02 Long term (current) use of antithrombotics/antiplatelets; Z87.01 Personal history of pneumonia (recurrent); Z88.0 Allergy status to penicillin; Z91.013 Allergy to seafood

== ENCOUNTER 2017-12-20 13:58 | Emergency (ER) | payer MEDICAID ==
[2017-12-20 13:58] VITALS: BMI 20.9
--- NOTE | 2017-12-20 14:38 | ED PDOC ---
HPI: Dental Pain/Injury Time Seen by Provider: 12/20/17 14:16 Chief Complaint (Nursing): Dental Pain Chief Complaint (Provider): dental pain History Per: Patient History/Exam Limitations: no limitations Onset/Duration Of Symptoms: Days (2) Additional Complaint(s): 52yo female c/o R lower molar pain x2 days, taking tramadol and motrin without relief. Denies fever, trismus, jaw pain or difficulty swallowing Past Medical History - Medical History PMH: Anemia, Anxiety, Bipolar Disorder, CAD, Cardia Arrhythmia, COPD, Depression , Fractures (right wrist due to fall), HTN, Migraine, Personality Disorder, Pneumonia, Seizures Denies: HIV, Chronic Kidney Disease, Sexually Transmitted Disease - Surgical History Surgical History: Cholecystectomy - Family History Family History: States: Unknown Family Hx - Immunization History Hx Tetanus Toxoid Vaccination: Yes Hx Influenza Vaccination: Yes Hx Pneumococcal Vaccination: Yes - Home Medications Home Medications: Ambulatory Orders Medication Instructions Recorded Atorvastatin [Lipitor] 10 mg PO DIN #30 tab 09/19/17 Clopidogrel [Plavix] 75 mg PO DAILY #30 tab 09/19/17 Lisinopril [Zestril] 10 mg PO DAILY #30 tab 09/19/17 traZODone [Desyrel] 150 mg PO HS 30 Days #90 tab 09/19/17 Gabapentin [Neurontin] 800 mg PO Q12H 12/08/17 Multivitamin [Multi-Vitamin Daily] 1 tab PO DAILY 12/08/17 Oxybutynin [Ditropan Tab] 5 mg PO DAILY 12/08/17 Venlafaxine [Effexor XR] 37.5 mg PO DAILY 12/08/17 busPIRone [Buspar] 5 mg PO DAILY 12/08/17 Aspirin [Ecotrin] 81 mg PO DAILY tabec 12/10/17 Clindamycin [Cleocin] 150 mg PO TID #15 cap 12/20/17 oxyCODONE/Acetaminophen 1/2TAB 0.5 ea PO Q6 PRN #5 tab 12/20/17 [Percocet 5-325 mg HALF TAB] Divalproex [Depakote ER] 1,000 mg PO DAILY 12/22/17 - Allergies Allergies/Adverse Reactions: Allergies Allergy/AdvReac Type Severity Reaction Status Date / Time FISH Allergy ITCHING Verified 12/08/17 14:11 Penicillins AdvReac URTICARIA Verified 12/08/17 14:11 Physical Exam - Reviewed Nursing Documentation Reviewed: Yes Vital Signs Reviewed: Yes - Physical Exam Appears: Positive for: Well, Non-toxic Head Exam: Positive for: ATRAUMATIC Eye Exam: Positive for: Normal appearance. Negative for: Periorbital swelling ENT: Positive for: Other (mild erythema R lower molar no edema normal jaw motion mno drooling). Negative for: Pharyngeal Erythema, Tonsillar Swelling Cardiovascular/Chest: Negative for: Tachycardia Neurologic/Psych: Positive for: Gait (normal). Negative for: Motor/Sensory Deficits Medical Decision Making Medical Decision Making: [employer] aware query revealed no narcotics/controlled substances in last 12months under Briana Akins Disposition - Clinical Impression Clinical Impression: Pain, dental - Patient ED Disposition Is Patient to be Admitted: No - Disposition Disposition: Routine/Home Disposition Time: 14:55 Condition: STABLE Additional Instructions: See your dentist as soon as possible for definitive management. Prescriptions: Clindamycin [Cleocin] 150 mg PO TID #15 cap oxyCODONE/Acetaminophen 1/2TAB [Percocet 5-325 mg HALF TAB] 0.5 ea PO Q6 PRN #5 tab PRN Reason: Pain, Severe (8-10) Instructions: Toothache (ED) Forms: [employer] (Greek)
[2017-12-20 14:43] VITALS: BP 152/94; PULSE 82; RESP 18; TEMP 97; O2SAT 98
[2017-12-20] MEDS ORDERED: Oxycodone/Acetaminophen 5/325 mg Tab ONE (14:48)
[2017-12-20] MEDS: Oxycodone/Acetaminophen 5/325 mg Tab PO STA (14:52)
== END 2017-12-20 15:00 | disposition home or self-care (01) ==
LOC: H.ER 13:58
DX: K08.89 Other specified disorders of teeth and supporting structures (principal); Z88.0 Allergy status to penicillin

== ENCOUNTER 2017-12-22 16:13 | Inpatient (IN) | payer MEDICAID ==
[2017-12-22 16:14] VITALS: BMI 20.9
[2017-12-22] MEDS ORDERED: Sodium Chloride 0.9% 1,000 ML IV STA (16:36)
[2017-12-22] MEDS ORDERED: Nitroglycerin 2% Ointment Foilpak UD TOP STA (16:37)
--- NOTE | 2017-12-22 16:58 | ED PDOC ---
HPI: General Adult Time Seen by Provider: 12/22/17 16:21 Chief Complaint (Nursing): Substance Abuse History Per: Patient, EMS Onset/Duration Of Symptoms: Days (x today) Current Symptoms Are (Timing): Still Present Additional Complaint(s): Ms. Warren is a 52 year old female who presents to the emergency department via EMS for overdose. As per EMS, [place] un[place]. Questionable Heroin use. Patient was given Narcan Intranasally by [facility] and woke up. Patient reports left-sided chest pain radiating to arm. Patient said she is supposed to get [address] Pedroza (Senior Microstrategy Developer) for severe coronary artery disease, but missed her appointment yesterday. Patient reports she had chest pain and took 2 doses of oxycodone. PMD: Dr. Hawley Senior Microstrategy Developer: Dr. Pedroza Past Medical History Reviewed: Historical Data, Nursing Documentation, Vital Signs Vital Signs: Last Vital Signs Temp 98.1 F 12/27/17 08:00 Pulse 60 12/27/17 08:00 Resp 18 12/27/17 08:00 BP 151/83 H 12/27/17 08:00 Pulse Ox 97 12/27/17 08:00 - Medical History PMH: Anemia, Anxiety, Bipolar Disorder, CAD, Cardia Arrhythmia, COPD, Depression , Fractures (right wrist due to fall), HTN, Hypercholesterolemia, Migraine, Personality Disorder, Pneumonia, Seizures Denies: HIV, Chronic Kidney Disease, Sexually Transmitted Disease - Surgical History Surgical History: Cholecystectomy - Family History Family History: States: Unknown Family Hx - Living Arrangements Living Arrangements: Other - Social History Current smoker - smoking cessation education provided: No (Quit smoking 8 months ago. Was a heavy smoker) Alcohol: None Drugs: Denies (illicit drug use) - Immunization History Hx Tetanus Toxoid Vaccination: Yes Hx Influenza Vaccination: Yes Hx Pneumococcal Vaccination: Yes - Home Medications Home Medications: Ambulatory Orders Medication Instructions Recorded Atorvastatin [Lipitor] 10 mg PO DIN #30 tab 09/19/17 Clopidogrel [Plavix] 75 mg PO DAILY #30 tab 09/19/17 traZODone [Desyrel] 150 mg PO HS 30 Days #90 tab 09/19/17 Gabapentin [Neurontin] 800 mg PO Q12H 12/08/17 Multivitamin [Multi-Vitamin Daily] 1 tab PO DAILY 12/08/17 Oxybutynin [Ditropan Tab] 5 mg PO DAILY 12/08/17 Venlafaxine [Effexor XR] 37.5 mg PO DAILY 12/08/17 busPIRone [Buspar] 5 mg PO DAILY 12/08/17 Aspirin [Ecotrin] 81 mg PO DAILY tabec 12/10/17 Clindamycin [Cleocin] 150 mg PO TID #15 cap 12/20/17 Divalproex [Depakote ER] 1,000 mg PO DAILY 12/22/17 Lisinopril [Zestril] 40 mg PO DAILY #30 tab 12/27/17 amLODIPine [Norvasc] 10 mg PO DAILY #30 tab 12/27/17 - Allergies Allergies/Adverse Reactions: Allergies Allergy/AdvReac Type Severity Reaction Status Date / Time FISH Allergy ITCHING Verified 12/08/17 14:11 Penicillins AdvReac URTICARIA Verified 12/08/17 14:11 Review of Systems ROS Statement: Except As Marked, All Systems Reviewed And Found Negative Cardiovascular: Positive for: Chest Pain (left-sided chest pain radiates to arm) Physical Exam - Reviewed Nursing Documentation Reviewed: Yes Vital Signs Reviewed: Yes - Physical Exam Appears: Positive for: Uncomfortable, In Acute Distress Head Exam: Positive for: ATRAUMATIC, NORMOCEPHALIC Skin: Positive for: Warm, Dry Eye Exam: Positive for: EOMI ENT: Positive for: Normal ENT Inspection, Other (dry mucus membranes) Neck: Positive for: Painless ROM, Supple Cardiovascular/Chest: Positive for: Regular Rate, Rhythm, Chest Non Tender. Negative for: Murmur Respiratory: Positive for: Normal Breath Sounds. Negative for: Wheezing, Respiratory Distress Gastrointestinal/Abdominal: Positive for: Soft. Negative for: Tenderness Back: Positive for: Normal Inspection. Negative for: Decreased ROM Extremity: Positive for: Normal ROM. 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 Negative for: Motor/Sensory Deficits - Laboratory Results Result Diagrams: 12/22/17 17:10 12/23/17 08:45 - ECG ECG: Positive for: Interpreted By Me ECG Rhythm: Positive for: Normal QRS, Normal ST Segment, Sinus Rhythm O2 Sat by Pulse Oximetry: 99 (RA) Pulse Ox Interpretation: Normal - Radiology X-Ray: Interpreted by Co X-Ray Interpretation: No Acute Disease - Physician Consult Information Physician Contacted: Parvin Pedroza - Critical Care Total Time (In Min): 30 Documented Critical Care: Time excludes all time spent performint seperately billable procedures Medical Decision Making Medical Decision Making: Time: 16:33 Impression(s): Opiate overdose, Chest pain, Sepsis Pending ER work up. Patient will need to be hospitalized for chest pain with cardiac risk factors in order to have troponin to rule ACS. Plan: - Type and Screen - EKG - Alcohol Serum - CMP - Creatine Phospokinase - Drug Screen, Urine - Lactic Acid, Plasma - Magnesium - Phosphorous - Troponin I - Troponin I Q8H - Troponin I 18H - CBC - Partial Thromboplastin Time - Prothrombin Time - Portable Chest X-Ray - Aspirin Chewable 162 mg PO - Sodium Chloride 0.9% 1,000 ml IV 500 mls/hr - Nitro-Bid 2% Oint Time: 17:10 Lactic Acid, Plasma Abnormal value (4.1) Time: 18:08 Labs consistent with lactic acidosis, but no criteria for sepsis. Lactic Acidosis might have been caused by period of hypoxia during time of unresponsiveness. Patient continues to be alert. Discussed with Dr. Peoples (who covers patient's PMD). Patient will be hospitalized for chest pain and opiate overdose. On reeval pt maintains alertness, requests her purse back. DW pt findings and plan of care. Time: 18:54 Chest X-Ray FINDINGS: LUNGS: No active pulmonary disease. PLEURA: No significant pleural effusion identified, no pneumothorax apparent. CARDIOVASCULAR: No radiographic findings to suggest acute or significant cardiovascular disease. OSSEOUS STRUCTURES: No significant abnormalities. VISUALIZED UPPER ABDOMEN: Normal. OTHER FINDINGS: None. IMPRESSION: No active disease. No significant interval change compared to the prior examination(s). Pt with poor access according to nurses. Peripheral IV placed in RIGHT forearm under sterile conditions. Scribe Attestation: Documented by Will Hamlin, acting as a scribe for Wilma Anderson MD. Provider Scribe Attestation: All medical record entries made by the Scribe were at my direction and personally dictated by me. I have reviewed the chart and agree that the record accurately reflects my personal performance of the history, physical exam, medical decision making, and the department course for this patient. I have also personally directed, reviewed, and agree with the discharge instructions and disposition. Disposition - Clinical Impression Clinical Impression: Opiate overdose, Chest pain - Patient ED Disposition Is Patient to be Admitted: Yes Discussed With DrBrittany: Ben Peoples Doctor Will See Patient In The: Hospital Counseled Patient/Family Regarding: Studies Performed, Diagnosis - Disposition Disposition Time: 18:03 Condition: FAIR - Pt Status Changed To: Hospital Disposition Of: Observation - POA Present On Arrival: None
[2017-12-22] MEDS ORDERED: Nitroglycerin 2% Ointment Foilpak UD TOP ONE (17:27)
[2017-12-22 17:36] LABS: BASO # 0.1 K/uL (0.0-0.2); BASO % 1.7 % (0.0-2.0); EOS % 0.5 % (0.0-4.0); HEMOGLOBIN 9.5 g/dL (12.0-16.0); LYMPH # 0.8 K/uL (1.0-4.3); LYMPH % 15.2 % (20.0-40.0); MEAN CELL VOLUME 83.1 fl (81.0-99.0); MEAN CORPUSCULAR HEMOGLOBIN 25.5 pg (27.0-31.0); MEAN CORPUSCULAR HGB CONC 30.6 g/dL (33.0-37.0); MEAN PLATELET VOLUME 8.2 fl (7.2-11.7); MONO # 0.6 K/uL (0.0-0.8); MONO % 10.4 % (0.0-10.0); NEUT % 72.2 % (50.0-75.0); RBC 3.74 Mil/uL (3.80-5.20); RED CELL DISTRIBUTION WIDTH 16.9 % (11.5-14.5); WHITE BLOOD COUNT 5.5 K/uL (4.8-10.8)
[2017-12-22 17:51] LABS: ALB/GLOB RATIO 1.5 (1.0-2.1); ALBUMIN 5.1 g/dL (3.5-5.0); ALT/SGPT 25 U/L (9-52); AST/SGOT 103 U/L (14-36); BLOOD UREA NITROGEN 11 mg/dl (7-17); CALCIUM 8.5 mg/dL (8.4-10.2); GFR AFRICAN-AMERICAN > 60; GFR NON-AFRICAN AMERICAN > 60; MAGNESIUM 1.8 MG/DL (1.6-2.3)
[2017-12-22] MEDS ORDERED: Sodium Chloride 0.9% 500 ML IV STA (17:58)
[2017-12-22 18:12] LABS: PARTIAL THROMBOPLASTIN TIME 25.5 Seconds (25.6-37.1); PROTHROMBIN TIME 10.9 Seconds (9.8-13.1)
[2017-12-22 18:28] LABS: BENZODIAZEPINES, UR NEGATIVE (NEGATIVE); OPIATES, UR NEGATIVE (NEGATIVE); PHENCYCLIDINE, UR NEGATIVE (NEGATIVE)
[2017-12-22 18:38] LABS: BARBITURATES, UR POSITIVE (NEGATIVE)
--- NOTE | 2017-12-22 18:55 | RAD ---
HISTORY: chest pain COMPARISON: 12/09/2017. FINDINGS: LUNGS: No active pulmonary disease. PLEURA: No significant pleural effusion identified, no pneumothorax apparent. CARDIOVASCULAR: No radiographic findings to suggest acute or significant cardiovascular disease. OSSEOUS STRUCTURES: No significant abnormalities. VISUALIZED UPPER ABDOMEN: Normal. OTHER FINDINGS: None. IMPRESSION: No active disease. No significant interval change compared to the prior examination(s). Concordant results with the preliminary interpretation rendered by the emergency department physician procedure.
[2017-12-23] MEDS ORDERED: Pneumococcal 23-Valent Vaccine IM ONE (06:00)
[2017-12-23 09:31] LABS: ALB/GLOB RATIO 1.4 (1.0-2.1); ALBUMIN 4.4 g/dL (3.5-5.0); ALT/SGPT 39 U/L (9-52); AST/SGOT 52 U/L (14-36); BLOOD UREA NITROGEN 10 mg/dl (7-17); CALCIUM 9.2 mg/dL (8.4-10.2); GFR AFRICAN-AMERICAN > 60; GFR NON-AFRICAN AMERICAN > 60
--- NOTE | 2017-12-23 11:22 | CARD ---
APPROVED REPORT EKG Measurement Heart [id number] LA 130P-1 [id number] <Conclusion> Normal sinus rhythm Normal ECG
--- NOTE | 2017-12-23 13:36 | CP.PCM.CON ---
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 Patient was found unresponsive due to acute intoxication. She reports that she relapsed on ETOH and cocaine and her UTOX was also positive for barbituates, which she denies. She reports chronic depression and anxiety, but denies acute AH/VH/SI/HI. She has a history of seeking hospitalization due to her homelessness and chronic alcohol abuse to avoid living on the streets. She is not interested in psychiatric admission at this time. Past psychiatric history: She was diagnosed with bipolar disorder, but given her history, her presentation is more likely borderline personality disorder with alcohol and cocaine abuse. The patient has history of more than 20 inpatient psychiatric hospitalizations and one incomplete attempt in the past when patient tried to hang herself. Patient also has a long history of etoh abuse. Patients longest period of sobriety is from [id number]. As per the patient she completed a 9 month stay at [facility] 3 years ago. Past medical history: History of coronary artery disease. Family psych history: Depression and anxiety; uncle committed suicide. Social history: She is unemployed. +Extensive history of alcohol abuse and cocaine abuse. +Adult daughter MSE: Alert and oriented x 3, good eye contact, mood- anxious, affect- dramatic, thought process-linear/coherent, speech- normal rate/rhythm/volume, thought content- no delusions/paranoia. No hallucinations. No suicidal ideation/plan/ intent. No homicidal ideation plan/intent. Insight/judgment poor re: chronic alcohol and cocaine abuse. Impression: 51-year-old female with extensive history of alcohol abuse and cocaine abuse, h/o bipolar disorder vs borderline personality disorder, has numerous psychiatric admissions for the secondary gain of housing and has chronic alcohol abuse. Patient denies acute SI/HI and does not require inpatient psychiatric admission at this time. Her primary illness is Alcohol abuse, cocaine abuse and likely borderline personality disorder. Recommendations: -SW referral to discuss outpatient mental health treatment options -Continue w/ previous medications: Depakote, Neurontin, Trazodone and Buspar; check VPA level -Patient counseled on the dangers of drugs and alcohol abuse -Alcohol withdrawal protocol as per CIWA; patient denies current signs/symptoms of ETOH withdrawal -Patient does not need acute inpatient psychiatric admission at this time -No 1:1 indicated at this time for psychiatric reasons Past Patient History - Infectious Disease Hx of Infectious Diseases: None - Tetanus Immunizations Tetanus Immunization: Unknown - Past Medical History & Family History Past Medical History?: Yes - Past Social History Smoking Status: Light Smoker < 10 Cigarettes Daily - CARDIAC Hx Cardia Arrhythmia: Yes Hx Hypercholesterolemia: Yes Hx Hypertension: Yes - PULMONARY Hx Chronic Obstructive Pulmonary Disease (COPD): Yes Hx Pneumonia: Yes - NEUROLOGICAL Hx Migraine: Yes Hx Seizures: Yes - HEENT Hx HEENT Problems: No - RENAL Hx Chronic Kidney Disease: No - ENDOCRINE/METABOLIC Hx Endocrine Disorders: No - HEMATOLOGICAL/ONCOLOGICAL Hx Anemia: Yes Hx Human Immunodeficiency Virus (HIV): No - INTEGUMENTARY Hx Dermatological Problems: No - MUSCULOSKELETAL/RHEUMATOLOGICAL Hx Falls: Yes Hx Fractures: Yes (right wrist due to fall) - GASTROINTESTINAL Hx Gastrointestinal Disorders: No - GENITOURINARY/GYNECOLOGICAL Hx Sexually Transmitted Disorders: No - PSYCHIATRIC Hx Anxiety: Yes Hx Bipolar Disorder: Yes Hx Depression: Yes Hx Substance Use: Yes (snorking heroine) - SURGICAL HISTORY Hx Cholecystectomy: Yes - ANESTHESIA Hx Anesthesia: Yes Hx Anesthesia Reactions: No Hx Malignant Hyperthermia: No Meds Allergies/Adverse Reactions: Allergies Allergy/AdvReac Type Severity Reaction Status Date / Time FISH Allergy ITCHING Verified 12/08/17 14:11 Penicillins AdvReac URTICARIA Verified 12/08/17 14:11 - Medications Medications: Current Medications Buspirone HCl (Buspar) 5 mg PO DAILY [facility] Divalproex Sodium (Depakote Dr(*Bid*)) 500 mg PO BID [facility] Home Med (Gabapentin [Neurontin]) 800 mg PO Q12H [facility] Ibuprofen (Motrin Tab) 400 mg PO Q6 PRN PRN Reason: Headache Last Admin: 12/23/17 08:35 Dose: 400 mg Trazodone HCl (Desyrel) 150 mg PO HS [facility] Results - Vital Signs Recent Vital Signs: Last Vital Signs Temp 98.4 F 12/23/17 12:00 Pulse 72 12/23/17 12:00 Resp 18 12/23/17 12:00 BP 163/85 H 12/23/17 12:00 Pulse Ox 98 12/23/17 12:00 - Labs Result Diagrams: 12/22/17 17:10 12/23/17 08:45 Labs: Laboratory Results - last 24 hr 12/22/17 12/22/17 12/22/17 17:10 17:10 17:10 WBC 5.5 RBC 3.74 L Hgb 9.5 L Hct 31.1 L MCV 83.1 MCH 25.5 L MCHC 30.6 L RDW 16.9 H Plt Count 286 MPV 8.2 Neut % (Auto) 72.2 Lymph % (Auto) 15.2 L [place] % (Auto) 10.4 H Eos % (Auto) 0.5 Baso % (Auto) 1.7 Neut # (Auto) 4.0 Lymph # (Auto) 0.8 L [place] # (Auto) 0.6 Eos # (Auto) 0.0 Baso # (Auto) 0.1 PT 10.9 INR 1.0 APTT 25.5 L Sodium 132 Potassium 5.5 H Chloride 94 L Carbon Dioxide 20 L Anion Gap 24 H BUN 11 Creatinine 0.6 L Est GFR ( Amer) > 60 Est GFR (Non-Af Amer) > 60 Random Glucose 99 Lactic Acid Calcium 8.5 Phosphorus 4.5 Magnesium 1.8 Total Bilirubin 1.4 H AST 103 H D ALT 25 Alkaline Phosphatase 53 Total Creatine Kinase 794 H Troponin I 0.0210 Total Protein 8.5 H Albumin 5.1 H D Globulin 3.4 Albumin/Globulin Ratio 1.5 Urine Opiates Screen Urine Methadone Screen Ur Barbiturates Screen Ur Phencyclidine Scrn Ur Amphetamines Screen U Benzodiazepines Scrn U Oth Cocaine Metabols U Cannabinoids Screen Alcohol, Quantitative 116 H 12/22/17 12/22/17 12/23/17 17:10 17:58 02:45 WBC RBC Hgb Hct MCV MCH MCHC RDW Plt Count MPV Neut % (Auto) Lymph % (Auto) [place] % (Auto) Eos % (Auto) Baso % (Auto) Neut # (Auto) Lymph # (Auto) [place] # (Auto) Eos # (Auto) Baso # (Auto) PT INR APTT Sodium Potassium Chloride Carbon Dioxide Anion Gap BUN Creatinine Est GFR ( Amer) Est GFR (Non-Af Amer) Random Glucose Lactic Acid 4.1 H* Calcium Phosphorus Magnesium Total Bilirubin AST ALT Alkaline Phosphatase Total Creatine Kinase Troponin I 0.0280 Total Protein Albumin Globulin Albumin/Globulin Ratio Urine Opiates Screen Negative Urine Methadone Screen Negative Ur Barbiturates Screen Positive H Ur Phencyclidine Scrn Negative Ur Amphetamines Screen Negative U Benzodiazepines Scrn Negative U Oth Cocaine Metabols Positive H U Cannabinoids Screen Negative Alcohol, Quantitative 12/23/17 12/23/17 12/23/17 08:45 08:45 08:45 WBC RBC Hgb Hct MCV MCH MCHC RDW Plt Count MPV Neut % (Auto) Lymph % (Auto) [place] % (Auto) Eos % (Auto) Baso % (Auto) Neut # (Auto) Lymph # (Auto) [place] # (Auto) Eos # (Auto) Baso # (Auto) PT INR APTT Sodium 131 L Potassium 3.7 Chloride 93 L Carbon Dioxide 26 Anion Gap 16 BUN 10 Creatinine 0.6 L Est GFR ( Amer) > 60 Est GFR (Non-Af Amer) > 60 Random Glucose 92 Lactic Acid 0.6 L Calcium 9.2 Phosphorus Magnesium Total Bilirubin 0.6 AST 52 H D ALT 39 Alkaline Phosphatase 62 Total Creatine Kinase 585 H Troponin I < 0.0120 Total Protein 7.5 Albumin 4.4 Globulin 3.1 Albumin/Globulin Ratio 1.4 Urine Opiates Screen Urine Methadone Screen Ur Barbiturates Screen Ur Phencyclidine Scrn Ur Amphetamines Screen U Benzodiazepines Scrn U Oth Cocaine Metabols U Cannabinoids Screen Alcohol, Quantitative
[2017-12-23] MEDS: Divalproex 500 mg DR(BID formulation) PO SCH ×2 (14:44→16:24)
--- NOTE | 2017-12-23 14:52 | CP.PCM.HP ---
<Omar Chino - Last Filed: 12/23/17 16:01> History of Present Illness - History of Present Illness History of Present Illness: 52 YO F w/ h/o alcohol and cocaine abuse was admitted after being brought to the ER by EMS unresponsive. Patient admits to using cocaine and heroin. Patient was given Narcan by EMS, after she regained consciousness. Patient has been having chest pain and was scheduled to get a stent with Dr. Pedroza but didn' t go to her appointment. PMH: Anemia, anxiety, substance abuse, Migraine, HTN FH: Depression and anxiety SH: Cholecystecomy Social Hx: Cocaine and heroin abuse Present on Admission - Present on Admission Any Indicators Present on Admission: No Past Patient History - Infectious Disease Hx of Infectious Diseases: None - Tetanus Immunizations Tetanus Immunization: Unknown - Past Medical History & Family History Past Medical History?: Yes - Past Social History Smoking Status: Light Smoker < 10 Cigarettes Daily - CARDIAC Hx Cardia Arrhythmia: Yes Hx Hypercholesterolemia: Yes Hx Hypertension: Yes - PULMONARY Hx Chronic Obstructive Pulmonary Disease (COPD): Yes Hx Pneumonia: Yes - NEUROLOGICAL Hx Migraine: Yes Hx Seizures: Yes - HEENT Hx HEENT Problems: No - RENAL Hx Chronic Kidney Disease: No - ENDOCRINE/METABOLIC Hx Endocrine Disorders: No - HEMATOLOGICAL/ONCOLOGICAL Hx Anemia: Yes Hx Human Immunodeficiency Virus (HIV): No - INTEGUMENTARY Hx Dermatological Problems: No - MUSCULOSKELETAL/RHEUMATOLOGICAL Hx Falls: Yes Hx Fractures: Yes (right wrist due to fall) - GASTROINTESTINAL Hx Gastrointestinal Disorders: No - GENITOURINARY/GYNECOLOGICAL Hx Sexually Transmitted Disorders: No - PSYCHIATRIC Hx Anxiety: Yes Hx Bipolar Disorder: Yes Hx Depression: Yes Hx Substance Use: Yes (snorking heroine) - SURGICAL HISTORY Hx Cholecystectomy: Yes - ANESTHESIA Hx Anesthesia: Yes Hx Anesthesia Reactions: No Hx Malignant Hyperthermia: No Meds Allergies/Adverse Reactions: Allergies Allergy/AdvReac Type Severity Reaction Status Date / Time FISH Allergy ITCHING Verified 12/08/17 14:11 Penicillins AdvReac URTICARIA Verified 12/08/17 14:11 Physical Exam - Constitutional Appears: No Acute Distress - Head Exam Head Exam: NORMAL INSPECTION - Eye Exam Eye Exam: Normal appearance - ENT Exam ENT Exam: Mucous Membranes Moist - Respiratory Exam Respiratory Exam: Clear to Auscultation Bilateral, NORMAL BREATHING PATTERN. absent: Rhonchi, Wheezes - Cardiovascular Exam Cardiovascular Exam: REGULAR RHYTHM, +S1, +S2 - GI/Abdominal Exam GI & Abdominal Exam: Normal Bowel Sounds - Neurological Exam Neurological exam: Alert, CN II-XII Intact, Oriented x3 - Skin Skin Exam: Normal Color, Warm Results - Vital Signs Recent Vital Signs: Last Vital Signs Temp 98.4 F 12/23/17 12:00 Pulse 72 12/23/17 12:00 Resp 18 12/23/17 12:00 BP 163/85 H 12/23/17 12:00 Pulse Ox 98 12/23/17 12:00 - Labs Result Diagrams: 12/22/17 17:10 12/23/17 08:45 Labs: Laboratory Results - last 24 hr 12/22/17 12/22/17 12/22/17 17:10 17:10 17:10 WBC 5.5 RBC 3.74 L Hgb 9.5 L Hct 31.1 L MCV 83.1 MCH 25.5 L MCHC 30.6 L RDW 16.9 H Plt Count 286 MPV 8.2 Neut % (Auto) 72.2 Lymph % (Auto) 15.2 L [place] % (Auto) 10.4 H Eos % (Auto) 0.5 Baso % (Auto) 1.7 Neut # (Auto) 4.0 Lymph # (Auto) 0.8 L [place] # (Auto) 0.6 Eos # (Auto) 0.0 Baso # (Auto) 0.1 PT 10.9 INR 1.0 APTT 25.5 L Sodium 132 Potassium 5.5 H Chloride 94 L Carbon Dioxide 20 L Anion Gap 24 H BUN 11 Creatinine 0.6 L Est GFR ( Amer) > 60 Est GFR (Non-Af Amer) > 60 Random Glucose 99 Lactic Acid Calcium 8.5 Phosphorus 4.5 Magnesium 1.8 Total Bilirubin 1.4 H AST 103 H D ALT 25 Alkaline Phosphatase 53 Total Creatine Kinase 794 H Troponin I 0.0210 Total Protein 8.5 H Albumin 5.1 H D Globulin 3.4 Albumin/Globulin Ratio 1.5 Urine Opiates Screen Urine Methadone Screen Ur Barbiturates Screen Ur Phencyclidine Scrn Ur Amphetamines Screen U Benzodiazepines Scrn U Oth Cocaine Metabols U Cannabinoids Screen Alcohol, Quantitative 116 H 12/22/17 12/22/17 12/23/17 17:10 17:58 02:45 WBC RBC Hgb Hct MCV MCH MCHC RDW Plt Count MPV Neut % (Auto) Lymph % (Auto) [place] % (Auto) Eos % (Auto) Baso % (Auto) Neut # (Auto) Lymph # (Auto) [place] # (Auto) Eos # (Auto) Baso # (Auto) PT INR APTT Sodium Potassium Chloride Carbon Dioxide Anion Gap BUN Creatinine Est GFR ( Amer) Est GFR (Non-Af Amer) Random Glucose Lactic Acid 4.1 H* Calcium Phosphorus Magnesium Total Bilirubin AST ALT Alkaline Phosphatase Total Creatine Kinase Troponin I 0.0280 Total Protein Albumin Globulin Albumin/Globulin Ratio Urine Opiates Screen Negative Urine Methadone Screen Negative Ur Barbiturates Screen Positive H Ur Phencyclidine Scrn Negative Ur Amphetamines Screen Negative U Benzodiazepines Scrn Negative U Oth Cocaine Metabols Positive H U Cannabinoids Screen Negative Alcohol, Quantitative 12/23/17 12/23/17 12/23/17 08:45 08:45 08:45 WBC RBC Hgb Hct MCV MCH MCHC RDW Plt Count MPV Neut % (Auto) Lymph % (Auto) [place] % (Auto) Eos % (Auto) Baso % (Auto) Neut # (Auto) Lymph # (Auto) [place] # (Auto) Eos # (Auto) Baso # (Auto) PT INR APTT Sodium 131 L Potassium 3.7 Chloride 93 L Carbon Dioxide 26 Anion Gap 16 BUN 10 Creatinine 0.6 L Est GFR ( Amer) > 60 Est GFR (Non-Af Amer) > 60 Random Glucose 92 Lactic Acid 0.6 L Calcium 9.2 Phosphorus Magnesium Total Bilirubin 0.6 AST 52 H D ALT 39 Alkaline Phosphatase 62 Total Creatine Kinase 585 H Troponin I < 0.0120 Total Protein 7.5 Albumin 4.4 Globulin 3.1 Albumin/Globulin Ratio 1.4 Urine Opiates Screen Urine Methadone Screen Ur Barbiturates Screen Ur Phencyclidine Scrn Ur Amphetamines Screen U Benzodiazepines Scrn U Oth Cocaine Metabols U Cannabinoids Screen Alcohol, Quantitative Assessment & Plan - Assessment and Plan (Free Text) Assessment: 52 YO F w/ h/o alcohol and cocaine abuse was admitted after being brought to the ER by EMS unresponsive. Patient has been having chest pain and was scheduled to get a stent with Dr. Pedroza but didn't go to her appointment. 1) Chest pain - Troponin: .02, .02, , <.012 - EKG: No acute changes - Cardiology consulted 2) Substance abuse/Bipolar - Buspirone, Depakote, Trazadone - Psych consulted 3) DVT prophylaxis - Lovenox 40 <Ben Peoples - Last Filed: 12/27/17 07:39> Results - Vital Signs Recent Vital Signs: Last Vital Signs Temp 97.7 F 12/27/17 05:21 Pulse 52 L 12/27/17 05:21 Resp 18 12/27/17 05:21 BP 165/76 H 12/27/17 05:21 Pulse Ox 98 12/27/17 05:21 - Labs Result Diagrams: 12/22/17 17:10 12/23/17 08:45 Assessment & Plan (1) Chest pain Status: Acute (2) Alcohol abuse Status: Acute (3) Anxiety Status: Acute (4) Bipolar disorder Status: Acute (5) HTN (hypertension) Status: Acute - Assessment and Plan (Free Text) Plan: I was present during evaluation and discussed with Dr Chino re plans of care and tx. Ben Peoples M.D.
[2017-12-23] MEDS: Enoxaparin 40 mg Syringe SC SCH (16:26)
--- NOTE | 2017-12-23 17:24 | CP.PCM.CON ---
History of Present Illness - History of Present Illness History of Present Illness: patient seen/examined. patient presents with narcotic overdose. has opiate positive, cocaine postiive. cardiac enzymes are negative. will benefit from stress test for risk factor staitification, however would not recommend perfoming with cocaine in the uerine. recommend medical therapy. can add nitrates for pain control). substance abuse counseling. outpatient stress test is recommended. Past Patient History - Infectious Disease Hx of Infectious Diseases: None - Tetanus Immunizations Tetanus Immunization: Unknown - Past Medical History & Family History Past Medical History?: Yes - Past Social History Smoking Status: Light Smoker < 10 Cigarettes Daily - CARDIAC Hx Cardia Arrhythmia: Yes Hx Hypercholesterolemia: Yes Hx Hypertension: Yes - PULMONARY Hx Chronic Obstructive Pulmonary Disease (COPD): Yes Hx Pneumonia: Yes - NEUROLOGICAL Hx Migraine: Yes Hx Seizures: Yes - HEENT Hx HEENT Problems: No - RENAL Hx Chronic Kidney Disease: No - ENDOCRINE/METABOLIC Hx Endocrine Disorders: No - HEMATOLOGICAL/ONCOLOGICAL Hx Anemia: Yes Hx Human Immunodeficiency Virus (HIV): No - INTEGUMENTARY Hx Dermatological Problems: No - MUSCULOSKELETAL/RHEUMATOLOGICAL Hx Falls: Yes Hx Fractures: Yes (right wrist due to fall) - GASTROINTESTINAL Hx Gastrointestinal Disorders: No - GENITOURINARY/GYNECOLOGICAL Hx Sexually Transmitted Disorders: No - PSYCHIATRIC Hx Anxiety: Yes Hx Bipolar Disorder: Yes Hx Depression: Yes Hx Substance Use: Yes (snorking heroine) - SURGICAL HISTORY Hx Cholecystectomy: Yes - ANESTHESIA Hx Anesthesia: Yes Hx Anesthesia Reactions: No Hx Malignant Hyperthermia: No Meds Allergies/Adverse Reactions: Allergies Allergy/AdvReac Type Severity Reaction Status Date / Time FISH Allergy ITCHING Verified 12/08/17 14:11 Penicillins AdvReac URTICARIA Verified 12/08/17 14:11 - Medications Medications: Current Medications Aspirin (Ecotrin) 81 mg PO DAILY [facility] Last Admin: 12/23/17 16:26 Dose: 81 mg Atorvastatin Calcium (Lipitor) 10 mg PO DIN [facility] Last Admin: 12/23/17 16:26 Dose: 10 mg Buspirone HCl (Buspar) 5 mg PO DAILY [facility] Clopidogrel Bisulfate (Plavix) 75 mg PO DAILY [facility] Divalproex Sodium (Depakote Dr(*Bid*)) 500 mg PO BID [facility] Last Admin: 12/23/17 16:24 Dose: Not Given Enoxaparin Sodium (Lovenox) 40 mg SC DAILY [facility] PRN Reason: Protocol Last Admin: 12/23/17 16:26 Dose: 40 mg Gabapentin (Neurontin) 800 mg PO Q12H [facility] Last Admin: 12/23/17 14:43 Dose: 800 mg Ibuprofen (Motrin Tab) 400 mg PO Q6 PRN PRN Reason: Headache Last Admin: 12/23/17 14:43 Dose: 400 mg Lisinopril (Zestril) 10 mg PO DAILY [facility] Oxybutynin Chloride (Ditropan Tab) 5 mg PO DAILY [facility] Trazodone HCl (Desyrel) 150 mg PO HS [facility] Results - Vital Signs Recent Vital Signs: Last Vital Signs Temp 98.4 F 12/23/17 16:13 Pulse 64 12/23/17 16:13 Resp 14 12/23/17 16:13 BP 167/79 H 12/23/17 16:13 Pulse Ox 98 12/23/17 16:13 - Labs Result Diagrams: 12/22/17 17:10 12/23/17 08:45 Labs: Laboratory Results - last 24 hr 12/22/17 12/22/17 12/22/17 17:10 17:10 17:10 WBC 5.5 RBC 3.74 L Hgb 9.5 L Hct 31.1 L MCV 83.1 MCH 25.5 L MCHC 30.6 L RDW 16.9 H Plt Count 286 MPV 8.2 Neut % (Auto) 72.2 Lymph % (Auto) 15.2 L [place] % (Auto) 10.4 H Eos % (Auto) 0.5 Baso % (Auto) 1.7 Neut # (Auto) 4.0 Lymph # (Auto) 0.8 L [place] # (Auto) 0.6 Eos # (Auto) 0.0 Baso # (Auto) 0.1 PT 10.9 INR 1.0 APTT 25.5 L Sodium 132 Potassium 5.5 H Chloride 94 L Carbon Dioxide 20 L Anion Gap 24 H BUN 11 Creatinine 0.6 L Est GFR ( Amer) > 60 Est GFR (Non-Af Amer) > 60 Random Glucose 99 Lactic Acid Calcium 8.5 Phosphorus 4.5 Magnesium 1.8 Total Bilirubin 1.4 H AST 103 H D ALT 25 Alkaline Phosphatase 53 Total Creatine Kinase 794 H Troponin I 0.0210 Total Protein 8.5 H Albumin 5.1 H D Globulin 3.4 Albumin/Globulin Ratio 1.5 Urine Opiates Screen Urine Methadone Screen Ur Barbiturates Screen Ur Phencyclidine Scrn Ur Amphetamines Screen U Benzodiazepines Scrn U Oth Cocaine Metabols U Cannabinoids Screen Alcohol, Quantitative 116 H 12/22/17 12/22/17 12/23/17 17:10 17:58 02:45 WBC RBC Hgb Hct MCV MCH MCHC RDW Plt Count MPV Neut % (Auto) Lymph % (Auto) [place] % (Auto) Eos % (Auto) Baso % (Auto) Neut # (Auto) Lymph # (Auto) [place] # (Auto) Eos # (Auto) Baso # (Auto) PT INR APTT Sodium Potassium Chloride Carbon Dioxide Anion Gap BUN Creatinine Est GFR ( Amer) Est GFR (Non-Af Amer) Random Glucose Lactic Acid 4.1 H* Calcium Phosphorus Magnesium Total Bilirubin AST ALT Alkaline Phosphatase Total Creatine Kinase Troponin I 0.0280 Total Protein Albumin Globulin Albumin/Globulin Ratio Urine Opiates Screen Negative Urine Methadone Screen Negative Ur Barbiturates Screen Positive H Ur Phencyclidine Scrn Negative Ur Amphetamines Screen Negative U Benzodiazepines Scrn Negative U Oth Cocaine Metabols Positive H U Cannabinoids Screen Negative Alcohol, Quantitative 12/23/17 12/23/17 12/23/17 08:45 08:45 08:45 WBC RBC Hgb Hct MCV MCH MCHC RDW Plt Count MPV Neut % (Auto) Lymph % (Auto) [place] % (Auto) Eos % (Auto) Baso % (Auto) Neut # (Auto) Lymph # (Auto) [place] # (Auto) Eos # (Auto) Baso # (Auto) PT INR APTT Sodium 131 L Potassium 3.7 Chloride 93 L Carbon Dioxide 26 Anion Gap 16 BUN 10 Creatinine 0.6 L Est GFR ( Amer) > 60 Est GFR (Non-Af Amer) > 60 Random Glucose 92 Lactic Acid 0.6 L Calcium 9.2 Phosphorus Magnesium Total Bilirubin 0.6 AST 52 H D ALT 39 Alkaline Phosphatase 62 Total Creatine Kinase 585 H Troponin I < 0.0120 Total Protein 7.5 Albumin 4.4 Globulin 3.1 Albumin/Globulin Ratio 1.4 Urine Opiates Screen Urine Methadone Screen Ur Barbiturates Screen Ur Phencyclidine Scrn Ur Amphetamines Screen U Benzodiazepines Scrn U Oth Cocaine Metabols U Cannabinoids Screen Alcohol, Quantitative
--- NOTE | 2017-12-23 17:24 | CP.PCM.CON ---
Past Patient History - Infectious Disease Hx of Infectious Diseases: None - Tetanus Immunizations Tetanus Immunization: Unknown - Past Medical History & Family History Past Medical History?: Yes - Past Social History Smoking Status: Light Smoker < 10 Cigarettes Daily - CARDIAC Hx Cardia Arrhythmia: Yes Hx Hypercholesterolemia: Yes Hx Hypertension: Yes - PULMONARY Hx Chronic Obstructive Pulmonary Disease (COPD): Yes Hx Pneumonia: Yes - NEUROLOGICAL Hx Migraine: Yes Hx Seizures: Yes - HEENT Hx HEENT Problems: No - RENAL Hx Chronic Kidney Disease: No - ENDOCRINE/METABOLIC Hx Endocrine Disorders: No - HEMATOLOGICAL/ONCOLOGICAL Hx Anemia: Yes Hx Human Immunodeficiency Virus (HIV): No - INTEGUMENTARY Hx Dermatological Problems: No - MUSCULOSKELETAL/RHEUMATOLOGICAL Hx Falls: Yes Hx Fractures: Yes (right wrist due to fall) - GASTROINTESTINAL Hx Gastrointestinal Disorders: No - GENITOURINARY/GYNECOLOGICAL Hx Sexually Transmitted Disorders: No - PSYCHIATRIC Hx Anxiety: Yes Hx Bipolar Disorder: Yes Hx Depression: Yes Hx Substance Use: Yes (snorking heroine) - SURGICAL HISTORY Hx Cholecystectomy: Yes - ANESTHESIA Hx Anesthesia: Yes Hx Anesthesia Reactions: No Hx Malignant Hyperthermia: No Meds Allergies/Adverse Reactions: Allergies Allergy/AdvReac Type Severity Reaction Status Date / Time FISH Allergy ITCHING Verified 12/08/17 14:11 Penicillins AdvReac URTICARIA Verified 12/08/17 14:11 - Medications Medications: Current Medications Aspirin (Ecotrin) 81 mg PO DAILY [facility] Last Admin: 12/23/17 16:26 Dose: 81 mg Atorvastatin Calcium (Lipitor) 10 mg PO DIN [facility] Last Admin: 12/23/17 16:26 Dose: 10 mg Buspirone HCl (Buspar) 5 mg PO DAILY [facility] Clopidogrel Bisulfate (Plavix) 75 mg PO DAILY [facility] Divalproex Sodium (Depakote Dr(*Bid*)) 500 mg PO BID [facility] Last Admin: 12/23/17 16:24 Dose: Not Given Enoxaparin Sodium (Lovenox) 40 mg SC DAILY [facility] PRN Reason: Protocol Last Admin: 12/23/17 16:26 Dose: 40 mg Gabapentin (Neurontin) 800 mg PO Q12H [facility] Last Admin: 12/23/17 14:43 Dose: 800 mg Ibuprofen (Motrin Tab) 400 mg PO Q6 PRN PRN Reason: Headache Last Admin: 12/23/17 14:43 Dose: 400 mg Lisinopril (Zestril) 10 mg PO DAILY [facility] Oxybutynin Chloride (Ditropan Tab) 5 mg PO DAILY [facility] Trazodone HCl (Desyrel) 150 mg PO HS [facility] Results - Vital Signs Recent Vital Signs: Last Vital Signs Temp 98.4 F 12/23/17 16:13 Pulse 64 12/23/17 16:13 Resp 14 12/23/17 16:13 BP 167/79 H 12/23/17 16:13 Pulse Ox 98 12/23/17 16:13 - Labs Result Diagrams: 12/22/17 17:10 12/23/17 08:45 Labs: Laboratory Results - last 24 hr 12/22/17 12/22/17 12/22/17 17:10 17:10 17:10 WBC 5.5 RBC 3.74 L Hgb 9.5 L Hct 31.1 L MCV 83.1 MCH 25.5 L MCHC 30.6 L RDW 16.9 H Plt Count 286 MPV 8.2 Neut % (Auto) 72.2 Lymph % (Auto) 15.2 L [place] % (Auto) 10.4 H Eos % (Auto) 0.5 Baso % (Auto) 1.7 Neut # (Auto) 4.0 Lymph # (Auto) 0.8 L [place] # (Auto) 0.6 Eos # (Auto) 0.0 Baso # (Auto) 0.1 PT 10.9 INR 1.0 APTT 25.5 L Sodium 132 Potassium 5.5 H Chloride 94 L Carbon Dioxide 20 L Anion Gap 24 H BUN 11 Creatinine 0.6 L Est GFR ( Amer) > 60 Est GFR (Non-Af Amer) > 60 Random Glucose 99 Lactic Acid Calcium 8.5 Phosphorus 4.5 Magnesium 1.8 Total Bilirubin 1.4 H AST 103 H D ALT 25 Alkaline Phosphatase 53 Total Creatine Kinase 794 H Troponin I 0.0210 Total Protein 8.5 H Albumin 5.1 H D Globulin 3.4 Albumin/Globulin Ratio 1.5 Urine Opiates Screen Urine Methadone Screen Ur Barbiturates Screen Ur Phencyclidine Scrn Ur Amphetamines Screen U Benzodiazepines Scrn U Oth Cocaine Metabols U Cannabinoids Screen Alcohol, Quantitative 116 H 12/22/17 12/22/17 12/23/17 17:10 17:58 02:45 WBC RBC Hgb Hct MCV MCH MCHC RDW Plt Count MPV Neut % (Auto) Lymph % (Auto) [place] % (Auto) Eos % (Auto) Baso % (Auto) Neut # (Auto) Lymph # (Auto) [place] # (Auto) Eos # (Auto) Baso # (Auto) PT INR APTT Sodium Potassium Chloride Carbon Dioxide Anion Gap BUN Creatinine Est GFR ( Amer) Est GFR (Non-Af Amer) Random Glucose Lactic Acid 4.1 H* Calcium Phosphorus Magnesium Total Bilirubin AST ALT Alkaline Phosphatase Total Creatine Kinase Troponin I 0.0280 Total Protein Albumin Globulin Albumin/Globulin Ratio Urine Opiates Screen Negative Urine Methadone Screen Negative Ur Barbiturates Screen Positive H Ur Phencyclidine Scrn Negative Ur Amphetamines Screen Negative U Benzodiazepines Scrn Negative U Oth Cocaine Metabols Positive H U Cannabinoids Screen Negative Alcohol, Quantitative 12/23/17 12/23/17 12/23/17 08:45 08:45 08:45 WBC RBC Hgb Hct MCV MCH MCHC RDW Plt Count MPV Neut % (Auto) Lymph % (Auto) [place] % (Auto) Eos % (Auto) Baso % (Auto) Neut # (Auto) Lymph # (Auto) [place] # (Auto) Eos # (Auto) Baso # (Auto) PT INR APTT Sodium 131 L Potassium 3.7 Chloride 93 L Carbon Dioxide 26 Anion Gap 16 BUN 10 Creatinine 0.6 L Est GFR ( Amer) > 60 Est GFR (Non-Af Amer) > 60 Random Glucose 92 Lactic Acid 0.6 L Calcium 9.2 Phosphorus Magnesium Total Bilirubin 0.6 AST 52 H D ALT 39 Alkaline Phosphatase 62 Total Creatine Kinase 585 H Troponin I < 0.0120 Total Protein 7.5 Albumin 4.4 Globulin 3.1 Albumin/Globulin Ratio 1.4 Urine Opiates Screen Urine Methadone Screen Ur Barbiturates Screen Ur Phencyclidine Scrn Ur Amphetamines Screen U Benzodiazepines Scrn U Oth Cocaine Metabols U Cannabinoids Screen Alcohol, Quantitative
[2017-12-24] MEDS: Enoxaparin 40 mg Syringe SC SCH (08:50)
[2017-12-24] MEDS: Divalproex 500 mg DR(BID formulation) PO SCH ×2 (08:53→17:46)
[2017-12-24] MEDS: guaiFENesin DM 200 mg-20 mg/10 ml UD PO SCH (20:19)
--- NOTE | 2017-12-24 23:49 | CP.PCM.PN ---
Subjective - Date & Time of Evaluation Date of Evaluation: 12/24/17 Time of Evaluation: 17:25 - Subjective Subjective: Patient continues to have a lot of chest pain Also has some cough All labs are normal troponins are all negative Noted elevated BP despite current meds Objective - Vital Signs/Intake and Output Vital Signs (last 24 hours): Temp Pulse Resp BP Pulse Ox 97.9 F 98 H 20 188/101 H 100 12/24/17 19:50 12/24/17 20:20 12/24/17 19:50 12/24/17 20:20 12/24/17 19:50 Intake and Output: 12/24/17 12/25/17 18:59 06:59 Intake Total 1200 Balance 1200 - Medications Medications: Current Medications Aspirin (Ecotrin) 81 mg PO DAILY [facility] Last Admin: 12/24/17 08:50 Dose: 81 mg Atorvastatin Calcium (Lipitor) 10 mg PO DIN [facility] Last Admin: 12/24/17 17:46 Dose: 10 mg Buspirone HCl (Buspar) 5 mg PO DAILY [facility] Last Admin: 12/24/17 08:49 Dose: 5 mg Clopidogrel Bisulfate (Plavix) 75 mg PO DAILY [facility] Last Admin: 12/24/17 08:51 Dose: 75 mg Divalproex Sodium (Depakote Dr(*Bid*)) 500 mg PO BID [facility] Last Admin: 12/24/17 17:46 Dose: 500 mg Enoxaparin Sodium (Lovenox) 40 mg SC DAILY [facility] PRN Reason: Protocol Last Admin: 12/24/17 08:50 Dose: 40 mg Gabapentin (Neurontin) 800 mg PO Q12H [facility] Last Admin: 12/24/17 17:47 Dose: 800 mg Guaifenesin/Dextromethorphan (Robitussin Dm) 10 ml PO TID [facility] Last Admin: 12/24/17 20:19 Dose: 10 ml Ibuprofen (Motrin Tab) 400 mg PO Q6 PRN PRN Reason: Headache Last Admin: 12/24/17 19:28 Dose: 400 mg Lisinopril (Zestril) 40 mg PO DAILY [facility] Metoprolol Tartrate (Lopressor) 50 mg PO Q12 [facility] Last Admin: 12/24/17 20:20 Dose: 50 mg Oxybutynin Chloride (Ditropan Tab) 5 mg PO DAILY [facility] Last Admin: 12/24/17 08:50 Dose: 5 mg Trazodone HCl (Desyrel) 150 mg PO HS [facility] Last Admin: 12/24/17 22:26 Dose: 150 mg - Labs Labs: 12/22/17 17:10 12/23/17 08:45 PT 10.9 Seconds (9.8-13.1) 12/22/17 17:10 INR 1.0 (0.9-1.2) 12/22/17 17:10 APTT 25.5 Seconds (25.6-37.1) L 12/22/17 17:10 - Head Exam Head Exam: NORMAL INSPECTION - Eye Exam Eye Exam: Normal appearance - ENT Exam ENT Exam: Mucous Membranes Moist - Respiratory Exam Respiratory Exam: Clear to Ausculation Bilateral - Cardiovascular Exam Cardiovascular Exam: REGULAR RHYTHM - GI/Abdominal Exam GI & Abdominal Exam: Normal Bowel Sounds - Neurological Exam Neurological Exam: CN II-XII Intact, Oriented x3 Assessment and Plan (1) Chest pain Status: Acute (2) Alcohol abuse Status: Acute (3) Anxiety Status: Acute (4) Bipolar disorder Status: Acute (5) HTN (hypertension) Status: Acute - Assessment and Plan (Free Text) Plan: add amlodipine cont meds low salt diet stress test
[2017-12-25] MEDS: guaiFENesin DM 200 mg-20 mg/10 ml UD PO SCH ×3 (08:19→16:13)
[2017-12-25] MEDS: Enoxaparin 40 mg Syringe SC SCH (08:20)
[2017-12-25] MEDS: Divalproex 500 mg DR(BID formulation) PO SCH ×2 (08:20→17:44)
--- NOTE | 2017-12-25 15:02 | CP.PCM.PN ---
Subjective - Date & Time of Evaluation Date of Evaluation: 12/25/17 Time of Evaluation: 15:00 - Subjective Subjective: events noted. given that patient has remained hospitalized due to chest pain, woul recommend stress test tomorrow. NPO after midnight. Objective - Vital Signs/Intake and Output Vital Signs (last 24 hours): Temp Pulse Resp BP Pulse Ox 98.3 F 58 L 18 131/82 98 12/25/17 12:00 12/25/17 12:00 12/25/17 12:00 12/25/17 12:00 12/25/17 12:00 - Medications Medications: Current Medications Aspirin (Ecotrin) 81 mg PO DAILY [facility] Last Admin: 12/25/17 08:20 Dose: 81 mg Atorvastatin Calcium (Lipitor) 10 mg PO DIN [facility] Last Admin: 12/24/17 17:46 Dose: 10 mg Buspirone HCl (Buspar) 5 mg PO DAILY [facility] Last Admin: 12/25/17 08:21 Dose: 5 mg Clopidogrel Bisulfate (Plavix) 75 mg PO DAILY [facility] Last Admin: 12/25/17 08:20 Dose: 75 mg Divalproex Sodium (Depakote Dr(*Bid*)) 500 mg PO BID [facility] Last Admin: 12/25/17 08:20 Dose: 500 mg Enoxaparin Sodium (Lovenox) 40 mg SC DAILY [facility] PRN Reason: Protocol Last Admin: 12/25/17 08:20 Dose: 40 mg Gabapentin (Neurontin) 800 mg PO Q12H [facility] Last Admin: 12/25/17 01:07 Dose: 800 mg Guaifenesin/Dextromethorphan (Robitussin Dm) 10 ml PO TID [facility] Last Admin: 12/25/17 08:19 Dose: 10 ml Ibuprofen (Motrin Tab) 400 mg PO Q6 PRN PRN Reason: Headache Last Admin: 12/25/17 12:12 Dose: 400 mg Lisinopril (Zestril) 40 mg PO DAILY [facility] Last Admin: 12/25/17 08:19 Dose: 40 mg Metoprolol Tartrate (Lopressor) 50 mg PO Q12 [facility] Last Admin: 12/25/17 09:51 Dose: Not Given Oxybutynin Chloride (Ditropan Tab) 5 mg PO DAILY [facility] Last Admin: 12/25/17 08:20 Dose: 5 mg Trazodone HCl (Desyrel) 150 mg PO HS [facility] Last Admin: 12/24/17 22:26 Dose: 150 mg - Labs Labs: 12/22/17 17:10 12/23/17 08:45 PT 10.9 Seconds (9.8-13.1) 12/22/17 17:10 INR 1.0 (0.9-1.2) 12/22/17 17:10 APTT 25.5 Seconds (25.6-37.1) L 12/22/17 17:10
[2017-12-25] MEDS: Apap-Butalbital-Caffeine 325-50-40mg Tab PO PRN (20:55)
[2017-12-26] MEDS: Apap-Butalbital-Caffeine 325-50-40mg Tab PO PRN ×3 (04:45→16:12)
[2017-12-26] MEDS: Divalproex 500 mg DR(BID formulation) PO SCH ×2 (09:54→16:17)
[2017-12-26] MEDS: Enoxaparin 40 mg Syringe SC SCH (09:56)
[2017-12-26] MEDS: guaiFENesin DM 200 mg-20 mg/10 ml UD PO SCH ×3 (09:58→16:15)
--- NOTE | 2017-12-26 10:25 | PQF GENQUE ---
Dr. Peoples, Etiology of Chest Pain ? if known after the work up is completed OR:Unable to determine OR: Other explanation of clinical finding 2 Cardiology consult: patient presents with narcotic overdose. has opiate positive, cocaine postiive. cardiac enzymes are negative.; will benefit from stress test for risk factor staitification, however would not recommend perfoming with cocaine in the urine recommend medical therapy. can add nitrates for pain control). substance abuse counseling. outpatient stress test is recommended. 12/25 Cardiology progress note: events noted. given that patient has remained hospitalized due to chest pain, would recommend stress test tomorrow. NPO after midnight monitored in telemetry This form is a permanent part of the medical record Clarification of your documentation is requested to better reflect the severity of illness and intensity of treatment of your patient. Indicators present [] Specify: [] [] Specify: [] [] Specify: [] [] Specify: [] Location in the medical record that reflects the above clinical findings: [] Treatment Provided: [] PHYSICIAN'S RESPONSE Based on your medical judgment of the clinical indicators outlined above please clarify the following: [] Practitioner response [] If unable to determine, please check the box, sign and date. Present On Admission (POA) Indicator: [] Present at the time of admission [] Not present at the time of admission [] Clinically Undetermined In responding to this query, please exercise your independent professional judgment. The fact that a question is asked does not imply that any particular answer is desired or expected. Thank you for your clarification on this documentation. If you have any questions please call. * Thank you, Alvina Colon RN ext. #[phone] MTDD
--- NOTE | 2017-12-26 17:42 | CP.PCM.PN ---
Subjective - Date & Time of Evaluation Date of Evaluation: 12/26/17 Time of Evaluation: 17:00 - Subjective Subjective: came to evaluate akilah but ariel is not in her room. her partner states she just left for CT scan. Blood pressure has improved on clonidine therapy. will continue. will have second portion of stress test tomorrow. Objective - Vital Signs/Intake and Output Vital Signs (last 24 hours): Temp Pulse Resp BP Pulse Ox 98.7 F 62 20 125/68 99 12/26/17 17:00 12/26/17 17:00 12/26/17 17:00 12/26/17 17:00 12/26/17 17:00 Intake and Output: 12/26/17 12/26/17 06:59 18:59 Intake Total 480 Balance 480 - Medications Medications: Current Medications Acetaminophen/Butalbital/Caffeine (Fioricet) 1 tab PO TID PRN PRN Reason: Headache Last Admin: 12/26/17 16:12 Dose: 1 tab Aspirin (Ecotrin) 81 mg PO DAILY [facility] Last Admin: 12/26/17 09:52 Dose: 81 mg Atorvastatin Calcium (Lipitor) 10 mg PO DIN [facility] Last Admin: 12/26/17 16:17 Dose: 10 mg Buspirone HCl (Buspar) 5 mg PO DAILY [facility] Last Admin: 12/26/17 09:53 Dose: 5 mg Clonidine HCl (Catapres) 0.1 mg PO BID [facility] Last Admin: 12/26/17 16:15 Dose: 0.1 mg Clopidogrel Bisulfate (Plavix) 75 mg PO DAILY [facility] Last Admin: 12/26/17 09:53 Dose: 75 mg Divalproex Sodium (Depakote Dr(*Bid*)) 500 mg PO BID [facility] Last Admin: 12/26/17 16:17 Dose: 500 mg Gabapentin (Neurontin) 800 mg PO Q12H [facility] Last Admin: 12/26/17 12:34 Dose: 800 mg Guaifenesin/Dextromethorphan (Robitussin Dm) 10 ml PO TID [facility] Last Admin: 12/26/17 16:15 Dose: 10 ml Ibuprofen (Motrin Tab) 400 mg PO Q6 PRN PRN Reason: Headache Last Admin: 12/25/17 17:44 Dose: 400 mg Lisinopril (Zestril) 40 mg PO DAILY [facility] Last Admin: 12/26/17 09:58 Dose: 40 mg Metoprolol Tartrate (Lopressor) 50 mg PO Q12 [facility] Last Admin: 12/26/17 09:55 Dose: 50 mg Oxybutynin Chloride (Ditropan Tab) 5 mg PO DAILY [facility] Last Admin: 12/26/17 09:54 Dose: 5 mg Trazodone HCl (Desyrel) 150 mg PO HS [facility] Last Admin: 12/25/17 21:36 Dose: 150 mg - Labs Labs: 12/22/17 17:10 12/23/17 08:45 PT 10.9 Seconds (9.8-13.1) 12/22/17 17:10 INR 1.0 (0.9-1.2) 12/22/17 17:10 APTT 25.5 Seconds (25.6-37.1) L 12/22/17 17:10
--- NOTE | 2017-12-26 17:45 | CT ---
PROCEDURE: CT HEAD WITHOUT CONTRAST. HISTORY: Headache. COMPARISON: Comparison made with prior MRI brain 12/10/2017. TECHNIQUE: Axial computed tomography images were obtained through the head/brain without intravenous contrast. Radiation dose: Total exam DLP = 840.0. MGy-cm. This CT exam was performed using one or more of the following dose reduction techniques: Automated exposure control, adjustment of the mA and/or kV according to patient size, and/or use of iterative reconstruction technique. . FINDINGS: HEMORRHAGE: No acute parenchymal, subarachnoid or extra-axial hemorrhage. BRAIN: No evidence of large acute infarct. Minimal chronic periventricular white matter ischemic changes. Mild generalized volume loss with mild more localized bilateral lateral superior frontal cortical atrophic changes. VENTRICLES: No obstructive hydrocephalus. CALVARIUM: No evidence of acute calvarial fractures. Small of elliptical shaped scalp calcification mid superior frontal region of uncertain etiology though could represent small calcified sebaceous cyst unchanged prior study. PARANASAL SINUSES: Unremarkable as visualized. No significant inflammatory changes. MASTOID AIR CELLS: Unremarkable as visualized. No inflammatory changes. OTHER FINDINGS: None. IMPRESSION: No evidence of acute intracranial hemorrhage. Minimal chronic periventricular white matter ischemic changes.
[2017-12-27 00:46] VITALS: RESP 18
--- NOTE | 2017-12-27 07:32 | CP.PCM.PN ---
Subjective - Date & Time of Evaluation Date of Evaluation: 12/25/17 Time of Evaluation: 17:25 - Subjective Subjective: Patient continues to have recurrent chest pain Has no SOB Has slight cough Has no fever All three troponins were negative Objective - Vital Signs/Intake and Output Vital Signs (last 24 hours): Temp Pulse Resp BP Pulse Ox 97.7 F 52 L 18 165/76 H 98 12/27/17 05:21 12/27/17 05:21 12/27/17 05:21 12/27/17 05:21 12/27/17 05:21 - Medications Medications: Current Medications Acetaminophen/Butalbital/Caffeine (Fioricet) 1 tab PO TID PRN PRN Reason: Headache Last Admin: 12/26/17 16:12 Dose: 1 tab Aspirin (Ecotrin) 81 mg PO DAILY [facility] Last Admin: 12/26/17 09:52 Dose: 81 mg Atorvastatin Calcium (Lipitor) 10 mg PO DIN [facility] Last Admin: 12/26/17 16:17 Dose: 10 mg Buspirone HCl (Buspar) 5 mg PO DAILY [facility] Last Admin: 12/26/17 09:53 Dose: 5 mg Clonidine HCl (Catapres) 0.1 mg PO BID [facility] Last Admin: 12/26/17 16:15 Dose: 0.1 mg Clopidogrel Bisulfate (Plavix) 75 mg PO DAILY [facility] Last Admin: 12/26/17 09:53 Dose: 75 mg Divalproex Sodium (Depakote Dr(*Bid*)) 500 mg PO BID [facility] Last Admin: 12/26/17 16:17 Dose: 500 mg Gabapentin (Neurontin) 800 mg PO Q12H [facility] Last Admin: 12/27/17 01:26 Dose: Not Given Guaifenesin/Dextromethorphan (Robitussin Dm) 10 ml PO TID [facility] Last Admin: 12/26/17 16:15 Dose: 10 ml Ibuprofen (Motrin Tab) 400 mg PO Q6 PRN PRN Reason: Headache Last Admin: 12/27/17 02:55 Dose: 400 mg Lisinopril (Zestril) 40 mg PO DAILY [facility] Last Admin: 12/26/17 09:58 Dose: 40 mg Metoprolol Tartrate (Lopressor) 50 mg PO Q12 [facility] Last Admin: 12/26/17 21:56 Dose: Not Given Oxybutynin Chloride (Ditropan Tab) 5 mg PO DAILY [facility] Last Admin: 12/26/17 09:54 Dose: 5 mg Trazodone HCl (Desyrel) 150 mg PO [facility] Last Admin: 12/26/17 21:58 Dose: 150 mg - Labs Labs: 12/22/17 17:10 12/23/17 08:45 PT 10.9 Seconds (9.8-13.1) 12/22/17 17:10 INR 1.0 (0.9-1.2) 12/22/17 17:10 APTT 25.5 Seconds (25.6-37.1) L 12/22/17 17:10 - Head Exam Head Exam: NORMAL INSPECTION - Eye Exam Eye Exam: Normal appearance - ENT Exam ENT Exam: Mucous Membranes Moist - Respiratory Exam Respiratory Exam: Clear to Ausculation Bilateral - Cardiovascular Exam Cardiovascular Exam: REGULAR RHYTHM - GI/Abdominal Exam GI & Abdominal Exam: Normal Bowel Sounds - Neurological Exam Neurological Exam: Awake Assessment and Plan (1) Chest pain Status: Acute (2) Opiate overdose Status: Acute (3) Alcohol abuse Status: Acute (4) Anxiety Status: Acute (5) Bipolar disorder Status: Acute - Assessment and Plan (Free Text) Plan: Cont meds For cardiac stress test in am cont telemetry transfer to reg floor after test follow up with Cardiology
--- NOTE | 2017-12-27 07:38 | CP.PCM.PN ---
Subjective - Date & Time of Evaluation Date of Evaluation: 12/25/17 Time of Evaluation: 17:30 - Subjective Subjective: Patient is noted to have elevated BP Has no chest pain or SOB afebrile all troponins are negative Objective - Vital Signs/Intake and Output Vital Signs (last 24 hours): Temp Pulse Resp BP Pulse Ox 97.7 F 52 L 18 165/76 H 98 12/27/17 05:21 12/27/17 05:21 12/27/17 05:21 12/27/17 05:21 12/27/17 05:21 - Medications Medications: Current Medications Acetaminophen/Butalbital/Caffeine (Fioricet) 1 tab PO TID PRN PRN Reason: Headache Last Admin: 12/26/17 16:12 Dose: 1 tab Aspirin (Ecotrin) 81 mg PO DAILY [facility] Last Admin: 12/26/17 09:52 Dose: 81 mg Atorvastatin Calcium (Lipitor) 10 mg PO DIN [facility] Last Admin: 12/26/17 16:17 Dose: 10 mg Buspirone HCl (Buspar) 5 mg PO DAILY [facility] Last Admin: 12/26/17 09:53 Dose: 5 mg Clonidine HCl (Catapres) 0.1 mg PO BID [facility] Last Admin: 12/26/17 16:15 Dose: 0.1 mg Clopidogrel Bisulfate (Plavix) 75 mg PO DAILY [facility] Last Admin: 12/26/17 09:53 Dose: 75 mg Divalproex Sodium (Depakote Dr(*Bid*)) 500 mg PO BID [facility] Last Admin: 12/26/17 16:17 Dose: 500 mg Gabapentin (Neurontin) 800 mg PO Q12H [facility] Last Admin: 12/27/17 01:26 Dose: Not Given Guaifenesin/Dextromethorphan (Robitussin Dm) 10 ml PO TID [facility] Last Admin: 12/26/17 16:15 Dose: 10 ml Ibuprofen (Motrin Tab) 400 mg PO Q6 PRN PRN Reason: Headache Last Admin: 12/27/17 02:55 Dose: 400 mg Lisinopril (Zestril) 40 mg PO DAILY [facility] Last Admin: 12/26/17 09:58 Dose: 40 mg Metoprolol Tartrate (Lopressor) 50 mg PO Q12 [facility] Last Admin: 12/26/17 21:56 Dose: Not Given Oxybutynin Chloride (Ditropan Tab) 5 mg PO DAILY [facility] Last Admin: 12/26/17 09:54 Dose: 5 mg Trazodone HCl (Desyrel) 150 mg PO [facility] Last Admin: 12/26/17 21:58 Dose: 150 mg - Labs Labs: 12/22/17 17:10 12/23/17 08:45 PT 10.9 Seconds (9.8-13.1) 12/22/17 17:10 INR 1.0 (0.9-1.2) 12/22/17 17:10 APTT 25.5 Seconds (25.6-37.1) L 12/22/17 17:10 - Head Exam Head Exam: NORMAL INSPECTION - Eye Exam Eye Exam: Normal appearance - ENT Exam ENT Exam: Mucous Membranes Moist - Respiratory Exam Respiratory Exam: Clear to Ausculation Bilateral - Cardiovascular Exam Cardiovascular Exam: REGULAR RHYTHM - GI/Abdominal Exam GI & Abdominal Exam: Normal Bowel Sounds - Neurological Exam Neurological Exam: Awake Assessment and Plan (1) Chest pain Status: Acute (2) Alcohol abuse Status: Acute (3) Anxiety Status: Acute (4) Bipolar disorder Status: Acute (5) HTN (hypertension) Status: Acute - Assessment and Plan (Free Text) Plan: Cont meds low salt diey xanax add amlodipine
--- NOTE | 2017-12-27 08:40 | CON ---
DATE: 12/26/2017 NEUROLOGY CONSULT CHIEF COMPLAINT: Headache. HISTORY OF PRESENT ILLNESS: This is a 52-year-old woman with history of anemia, anxiety, substance abuse such as cocaine, heroin, migraine headaches, hypertension, bipolar disorder who presented to the hospital because was found unresponsive. She is positive for cocaine and barbiturates in her blood and elevated alcohol level 116 and was eventually given Narcan by EMS after which she regained consciousness. She has currently been having elevated systolic and diastolic blood pressures and worsening diffuse pressure headache, mostly left-sided temporoparietal area. She is currently on gabapentin 800 mg p.o. b.i.d. as well as Depakote 500 mg p.o. b.i.d., which should help with her headaches anyway. I think there is a vasospasm effect aggravating her headaches from the cocaine as well as high blood pressure. She is on Plavix. She is on aspirin and Lipitor for stroke prevention. She is on Fioricet one tab p.o. t.i.d. PAST MEDICAL HISTORY: Anemia, anxiety, migraine, hypertension, depression. FAMILY HISTORY: Depression and anxiety. PAST SURGICAL HISTORY: Cholecystectomy. SOCIAL HISTORY: Cocaine abuse, heroin abuse, alcohol abuse. ALLERGIES: ALLERGIC TO PENICILLIN. MEDICATIONS: Reviewed by nurse per reconciliation sheet. REVIEW OF SYSTEMS: A 14-point review of systems negative except in the HPI. PHYSICAL EXAMINATION: VITAL SIGNS: Temperature 98.6, pulse rate 61, blood pressure 108/68, respiratory rate 18, oxygen saturation 97% by room air. GENERAL: The patient is seen up in the bed, in no acute distress. HEENT: Atraumatic and normocephalic. PERRLA. Extraocular muscles are intact. NECK: Supple. No JVD. No adenopathy noted. LUNGS: Clear to auscultation. No adventitious sounds. HEART: S1, S2. Normal rate and rhythm. No murmurs, rubs, or gallops. ABDOMEN: Soft, nontender, and nondistended. Bowel sounds present. EXTREMITIES: No clubbing. No cyanosis. Peripheral pulses 2+ bilaterally. NEUROLOGIC: The patient is alert and oriented to person, place, month, and year. Speech is fluent without any errors. Cranial nerves II through XII are intact. Motor: Moves all extremities equally. Toes are downgoing bilaterally. Sensory: Light touch, pinprick, proprioception, and vibration are intact. DTRs are 2+ throughout. Coordination: [id number] intact. Gait is deferred for now. LABORATORY DATA: U-tox positive for barbiturates, cocaine as well as elevated alcohol at 116. Sodium is 131, potassium 3.7, chloride 93, carbon dioxide 26, BUN of 10, creatinine 0.6, random glucose of 92. ASSESSMENT AND PLAN: This is a 52-year-old woman with history of bipolar disorder on Depakote 500 p.o. b.i.d. and gabapentin 600 mg p.o. b.i.d. by Psychiatry, anemia, anxiety, migraine headaches, hypertension, history of cocaine and heroin abuse, positive for cocaine and alcohol abuse on urine toxicology as well as barbiturates. She was given Narcan by EMS to regain conscious as she was altered and was having chest pain and diffuse pressure headaches, was consulted for the headaches. Her headaches are secondary to vasospasm effect of hypertensive urgency superimposed on cocaine abuse causing vasospasm worsening underlying baseline migraine headaches. RECOMMENDATIONS: At this time recommend; 1. Fioricet one tab p.o. q. 4 hours p.r.n. for the acute onset of headache. 2. Continue with Depakote 500 mg p.o. b.i.d. and gabapentin 800 mg p.o. b.i.d. for underlying bipolar disorder, which will also help with her headaches. 3. Counseled on cocaine and alcohol cessation. 4. Keep blood pressure in 120 to 130. 5. Continue aspirin, Plavix, and statin for stroke prevention. At this time, she is clinically stable from my standpoint. We will get a CAT scan of the head. Thank you for this consult. Yonny Maya MD
[2017-12-27 09:01] VITALS: BP 151/83; PULSE 60; TEMP 98.1
[2017-12-27] MEDS: Divalproex 500 mg DR(BID formulation) PO SCH (10:39)
[2017-12-27] MEDS: guaiFENesin DM 200 mg-20 mg/10 ml UD PO SCH (10:41)
--- NOTE | 2017-12-27 11:26 | CP.PCM.DIS ---
Provider - Provider Date of Admission: 12/23/17 19:04 Attending physician: Ben Peoples MD Time Spent in preparation of Discharge (in minutes): 30 Hospital Course - Lab Results Lab Results: Most Recent Lab Values WBC 5.5 K/uL (4.8-10.8) 12/22/17 17:10 RBC 3.74 Mil/uL (3.80-5.20) L 12/22/17 17:10 Hgb 9.5 g/dL (12.0-16.0) L 12/22/17 17:10 Hct 31.1 % (34.0-47.0) L 12/22/17 17:10 MCV 83.1 fl (81.0-99.0) 12/22/17 17:10 MCH 25.5 pg (27.0-31.0) L 12/22/17 17:10 MCHC 30.6 g/dL (33.0-37.0) L 12/22/17 17:10 RDW 16.9 % (11.5-14.5) H 12/22/17 17:10 Plt Count 286 K/uL (130-400) 12/22/17 17:10 MPV 8.2 fl (7.2-11.7) 12/22/17 17:10 Neut % (Auto) 72.2 % (50.0-75.0) 12/22/17 17:10 Lymph % (Auto) 15.2 % (20.0-40.0) L 12/22/17 17:10 [place] % (Auto) 10.4 % (0.0-10.0) H 12/22/17 17:10 Eos % (Auto) 0.5 % (0.0-4.0) 12/22/17 17:10 Baso % (Auto) 1.7 % (0.0-2.0) 12/22/17 17:10 Neut # (Auto) 4.0 K/uL (1.8-7.0) 12/22/17 17:10 Lymph # (Auto) 0.8 K/uL (1.0-4.3) L 12/22/17 17:10 [place] # (Auto) 0.6 K/uL (0.0-0.8) 12/22/17 17:10 Eos # (Auto) 0.0 K/uL (0.0-0.7) 12/22/17 17:10 Baso # (Auto) 0.1 K/uL (0.0-0.2) 12/22/17 17:10 PT 10.9 Seconds (9.8-13.1) 12/22/17 17:10 INR 1.0 (0.9-1.2) 12/22/17 17:10 APTT 25.5 Seconds (25.6-37.1) L 12/22/17 17:10 Sodium 131 mmol/l (132-148) L 12/23/17 08:45 Potassium 3.7 MMOL/L (3.6-5.0) 12/23/17 08:45 Chloride 93 mmol/L (98-107) L 12/23/17 08:45 Carbon Dioxide 26 mmol/L (22-30) 12/23/17 08:45 Anion Gap 16 (10-20) 12/23/17 08:45 BUN 10 mg/dl (7-17) 12/23/17 08:45 Creatinine 0.6 mg/dl (0.7-1.2) L 12/23/17 08:45 Est GFR ( Amer) > 60 12/23/17 08:45 Est GFR (Non-Af Amer) > 60 12/23/17 08:45 Random Glucose 92 mg/dL (65-105) 12/23/17 08:45 Lactic Acid 0.6 MMOL/L (0.7-2.1) L 12/23/17 08:45 Calcium 9.2 mg/dL (8.4-10.2) 12/23/17 08:45 Phosphorus 4.5 mg/dl (2.5-4.5) 12/22/17 17:10 Magnesium 1.8 MG/DL (1.6-2.3) 12/22/17 17:10 Total Bilirubin 0.6 mg/dl (0.2-1.3) 12/23/17 08:45 AST 52 U/L (14-36) H D 12/23/17 08:45 ALT 39 U/L (9-52) 12/23/17 08:45 Alkaline Phosphatase 62 U/L (38-126) 12/23/17 08:45 Total Creatine Kinase 585 U/L (30-135) H 12/23/17 08:45 Troponin I < 0.0120 ng/mL (0.00-0.120) 12/23/17 08:45 Total Protein 7.5 G/DL (6.3-8.2) 12/23/17 08:45 Albumin 4.4 g/dL (3.5-5.0) 12/23/17 08:45 Globulin 3.1 gm/dL (2.2-3.9) 12/23/17 08:45 Albumin/Globulin Ratio 1.4 (1.0-2.1) 12/23/17 08:45 Urine Opiates Screen Negative (NEGATIVE) 12/22/17 17:58 Urine Methadone Screen Negative (NEGATIVE) 12/22/17 17:58 Ur Barbiturates Screen Positive (NEGATIVE) H 12/22/17 17:58 Valproic Acid 23.1 ug/mL (50.0-100.0) L 12/24/17 06:40 Ur Phencyclidine Scrn Negative (NEGATIVE) 12/22/17 17:58 Ur Amphetamines Screen Negative (NEGATIVE) 12/22/17 17:58 U Benzodiazepines Scrn Negative (NEGATIVE) 12/22/17 17:58 U Oth Cocaine Metabols Positive (NEGATIVE) H 12/22/17 17:58 U Cannabinoids Screen Negative (NEGATIVE) 12/22/17 17:58 Alcohol, Quantitative 116 mg/dl (0-10) H 12/22/17 17:10 - Hospital Course Hospital Course: 52 YO F w/ h/o cocain and heroin abuse was admitted for r/o ACS. Troponin x 3 negative. Patient is very anxious, she was scheduled for a second part of her stress test today however, started complaining of anxiety and chest tightness at that time. U/A showed positive for benzo and Methamphetamines. Patient follows up with environmental program manager Dr. Magdaleno outpatient, states she spoke to him and she is scheduled to have a cath. Patient is stable for discharge. Have given patient medications to better controll her BP, advised to f/u outpatient. Head CT was ordered for patients headache and did not show in acute findings. Patient has telephonic nurse case manager at bedside, which will help patient get rehab services. Have explained the patient the dangers of substance abuse. ER precautions have been given. Discharge Exam - Head Exam Head Exam: NORMAL INSPECTION - Eye Exam Eye Exam: Normal appearance - Respiratory Exam Respiratory Exam: Clear to PA & Lateral, NORMAL BREATHING PATTERN. absent: Rales, Wheezes, Respiratory Distress - Cardiovascular Exam Cardiovascular Exam: REGULAR RHYTHM, +S1, +S2 - GI/Abdominal Exam GI & Abdominal Exam: Normal Bowel Sounds, Soft. absent: Tenderness - Neurological Exam Neurological exam: Alert, CN II-XII Intact, Oriented x3 Discharge Plan - Discharge Medications Prescriptions: amLODIPine [Norvasc] 10 mg PO DAILY #30 tab Lisinopril [Zestril] 40 mg PO DAILY #30 tab - Follow Up Plan Condition: STABLE Disposition: HOME/ ROUTINE Instructions: Chest Pain (DC), Opioid Overdose (DC) Additional Instructions: follow up with your primary doctor and follow up with cardiology. return to emergency room for return of symptoms.
[2017-12-27 15:55] VITALS: O2SAT 99
== END 2017-12-27 12:52 | disposition home or self-care (01) | DRG 449 ==
LOC: H.ER 16:13 → H.ERHOLD 18:03 → H.TEL 22:49 → OBSVTOIN 12-23 19:04
PROVIDERS: ADMIT Family Medicine; ATTEND Family Medicine
DX: T40.601A Poisoning by unspecified narcotics, accidental (unintentional), initial encounter (principal); F14.10 Cocaine abuse, uncomplicated; F31.9 Bipolar disorder, unspecified; E78.00 Pure hypercholesterolemia, unspecified; F11.10 Opioid abuse, uncomplicated; J44.9 Chronic obstructive pulmonary disease, unspecified; F10.129 Alcohol abuse with intoxication, unspecified; F41.9 Anxiety disorder, unspecified; Y90.5 Blood alcohol level of 100-119 mg/100 ml; I25.10 Atherosclerotic heart disease of native coronary artery without angina pectoris; F60.3 Borderline personality disorder; F17.210 Nicotine dependence, cigarettes, uncomplicated; G43.909 Migraine, unspecified, not intractable, without status migrainosus; I16.0 Hypertensive urgency; Z88.0 Allergy status to penicillin; Z91.013 Allergy to seafood; R07.9 Chest pain, unspecified

== ENCOUNTER 2018-07-20 15:45 | Observation (INO) | payer MEDICAID ==
[2018-07-20 15:46] VITALS: BMI 20.7
[2018-07-20 16:49] LABS: BASO # 0.1 K/uL (0.0-0.2); EOS # 0.1 K/uL (0.0-0.7); HEMOGLOBIN 10.5 g/dL (12.0-16.0); LYMPH # 2.4 K/uL (1.0-4.3); LYMPH % 46.2 % (20.0-40.0); MEAN CELL VOLUME 79.2 fl (81.0-99.0); MEAN CORPUSCULAR HEMOGLOBIN 25.6 pg (27.0-31.0); MEAN CORPUSCULAR HGB CONC 32.3 g/dL (33.0-37.0); MEAN PLATELET VOLUME 7.8 fl (7.2-11.7); MONO # 0.7 K/uL (0.0-0.8); MONO % 12.8 % (0.0-10.0); NRBC % 0.1 % (0.0-0.0); RBC 4.1 Mil/uL (3.80-5.20); RED CELL DISTRIBUTION WIDTH 20.9 % (11.5-14.5); WHITE BLOOD COUNT 5.3 K/uL (4.8-10.8)
[2018-07-20 17:03] LABS: ALB/GLOB RATIO 1.2 (1.0-2.1); ALBUMIN 4.3 g/dL (3.5-5.0); CALCIUM 8.7 mg/dL (8.4-10.2); GFR NON-AFRICAN AMERICAN > 60
[2018-07-20 17:05] LABS: ALT/SGPT 14 U/L (9-52); AST/SGOT 63 U/L (14-36); BLOOD UREA NITROGEN 14 mg/dl (7-17)
--- NOTE | 2018-07-20 17:07 | ED PDOC ---
HPI: Chest Pain Time Seen by Provider: 07/20/18 16:10 Chief Complaint (Nursing): Chest Pain Chief Complaint (Provider): Chest Pain History Per: Patient History/Exam Limitations: no limitations Onset/Duration Of Symptoms: Days (x7) Current Symptoms Are (Timing): Constant Associated Symptoms: denies: Nausea, Diaphoresis Additional Complaint(s): Briana Akins is a 53 year old female with a past medical history of bipolar disorder, hypertension, hypercholesterolemia, alcoholism, and extensive cardiac history including two myocardial infarctions who is presenting to the ED for evaluation of left sided chest pain, onset 1 week ago. Patient states that pain is now constant but denies any fevers, chills, diaphoresis, or vomiting. She admits that her doctor wanted to do an open heart surgery nut she never consented. Patient also admits that she drinks several beers a day and the last one was at noon today. She does admit that she has been feeling depressed lately but denies any suicidal or homicidal ideation. pt currently has holter monitor placed by her dr. PMD: Devante Hawley Clinical Researcher: Dr. Magdaleno - Risk Factors TAD Risk Factors: Pos: Hypertension Past Medical History Reviewed: Historical Data, Nursing Documentation, Vital Signs Vital Signs: Last Vital Signs Temp 96.9 F L 07/20/18 15:55 Pulse 76 07/20/18 20:02 Resp 16 07/20/18 15:55 BP 136/77 07/20/18 15:55 Pulse Ox 95 07/20/18 20:02 - Medical History PMH: Anemia, Anxiety, Bipolar Disorder, CAD, Cardia Arrhythmia, COPD, Depression , Fractures (right wrist due to fall), HTN, Hypercholesterolemia, Migraine, Personality Disorder, Pneumonia, Seizures Denies: Diabetes, Hepatitis, HIV, Chronic Kidney Disease, Sexually Transmitted Disease - Surgical History Surgical History: Cholecystectomy - Family History Family History: States: Unknown Family Hx - Social History Current smoker - smoking cessation education provided: No Alcohol: > 2 Drinks/Day Drugs: Denies - Immunization History Hx Tetanus Toxoid Vaccination: (unk) Hx Influenza Vaccination: No Hx Pneumococcal Vaccination: Yes - Home Medications Home Medications: Ambulatory Orders Medication Instructions Recorded Atorvastatin [Lipitor] 10 mg PO DIN #30 tab 09/19/17 Multivitamin [Multi-Vitamin Daily] 1 tab PO DAILY 01/18/18 Venlafaxine [Effexor XR] 37.5 mg PO DAILY 12/08/17 Aspirin [Ecotrin] 81 mg PO DAILY tabec 12/10/17 Lisinopril [Zestril] 40 mg PO DAILY #30 tab 12/27/17 Clopidogrel [Plavix] 75 mg PO DAILY #30 tab 04/24/18 Mirtazapine [Remeron] 15 mg PO HS #30 tab 04/24/18 Naltrexone [Revia] 50 mg PO DAILY #30 tab 04/24/18 Oxybutynin [Ditropan Tab] 5 mg PO TID #90 tab 04/24/18 QUEtiapine [SEROquel] 200 mg PO HS #30 tab 04/24/18 hydrOXYzine HCl [Atarax] 50 mg PO BID PRN #30 tab 04/24/18 traZODone [Desyrel] 100 mg PO HS PRN #30 tab 04/24/18 Gabapentin [Neurontin] 800 mg PO BID #60 cap 05/26/18 QUEtiapine [Seroquel] 100 mg PO HS tab 05/26/18 amLODIPine [Norvasc] 10 mg PO DAILY #30 tab 05/26/18 traZODone [Desyrel] 150 mg PO HS tab 05/26/18 - Allergies Allergies/Adverse Reactions: Allergies Allergy/AdvReac Type Severity Reaction Status Date / Time FISH Allergy ITCHING Verified 07/20/18 15:49 Penicillins AdvReac URTICARIA Verified 07/20/18 15:49 Review of Systems ROS Statement: Except As Marked, All Systems Reviewed And Found Negative Constitutional: Negative for: Fever, Chills, Sweats Cardiovascular: Positive for: Chest Pain Gastrointestinal: Negative for: Nausea, Vomiting Psych: Positive for: Depression. Negative for: Suicidal ideation, Other ( homicidal ideation) Physical Exam - Reviewed Nursing Documentation Reviewed: Yes Vital Signs Reviewed: Yes - Physical Exam Appears: Positive for: Non-toxic, No Acute Distress Head Exam: Positive for: ATRAUMATIC, NORMAL INSPECTION, NORMOCEPHALIC Skin: Positive for: Normal Color, Warm, DRY Eye Exam: Positive for: EOMI, Normal appearance, PERRL ENT: Positive for: Normal ENT Inspection Neck: Positive for: Normal, Painless ROM Cardiovascular/Chest: Positive for: Regular Rate, Rhythm. Negative for: Murmur Respiratory: Positive for: Normal Breath Sounds. Negative for: Respiratory Distress Gastrointestinal/Abdominal: Positive for: Normal Exam, Soft. Negative for: Tenderness Back: Positive for: Normal Inspection. Negative for: L CVA Tenderness, R CVA Tenderness Extremity: Positive for: Normal ROM. Negative for: Deformity, Swelling Neurologic/Psych: Positive for: Alert, Oriented. Negative for: Motor/Sensory Deficits - Laboratory Results Result Diagrams: 07/20/18 16:30 07/20/18 16:30 - ECG ECG Rhythm: Positive for: Normal QRS, Normal ST Segment, Sinus Rhythm Rate: 76 O2 Sat by Pulse Oximetry: 95 (RA) Medical Decision Making Medical Decision Making: Time: 16:30 Impression: Chest Pain rule out cardiac etiology Plan: --EKG --Alcohol Serum --CMP --CBC --Chest X-ray --Aspirin 81 mg PO Chest X-ray: FINDINGS: External leads obscure evaluation of the underlying parenchyma. LUNGS: No focal consolidation. Please note that chest x-ray has limited sensitivity for the detection of pulmonary masses. PLEURA: No significant pleural effusion identified. No definite pneumothorax . CARDIOVASCULAR: The cardiomediastinal silhouette appears within normal limits of size. OSSEOUS STRUCTURES: Degenerative changes of the spine. VISUALIZED UPPER ABDOMEN: Unremarkable. OTHER FINDINGS: None. IMPRESSION: No focal consolidation, significant pleural effusion, or definite pneumothorax identified. REviewed pts labs and imaging. pt given one ASA here, as took ASA 81 mg at home pt mildly intoxicated NA low, however has history of low sodium Pt will be admitted to tele for observation/cardiac monitoring pt primary doc is Dr Hawley, being covered by Dr Pak who states to admit to hospitalist, and requests Dr Orellana for cardiology pt aware of plan pt not acutely suicidal or homicidal, but should prob see psych as inpatient,. Scribe Attestation: Documented by Lucita Rich, acting as a scribe for Haviva Lizbeth MD. Provider Scribe Attestation: All medical record entries made by the Scribe were at my direction and personally dictated by me. I have reviewed the chart and agree that the record accurately reflects my personal performance of the history, physical exam, medical decision making, and the department course for this patient. I have also personally directed, reviewed, and agree with the discharge instructions and disposition. Disposition - Clinical Impression Clinical Impression: Acute chest pain - Patient ED Disposition Is Patient to be Admitted: Yes Counseled Patient/Family Regarding: Studies Performed, Diagnosis - Disposition Disposition Time: 19:05 Condition: STABLE
--- NOTE | 2018-07-20 17:41 | RAD ---
HISTORY: chest pain COMPARISON: Chest x-ray performed 12/22/17 TECHNIQUE: Chest PA and lateral FINDINGS: External leads obscure evaluation of the underlying parenchyma. LUNGS: No focal consolidation. Please note that chest x-ray has limited sensitivity for the detection of pulmonary masses. PLEURA: No significant pleural effusion identified. No definite pneumothorax . CARDIOVASCULAR: The cardiomediastinal silhouette appears within normal limits of size. OSSEOUS STRUCTURES: Degenerative changes of the spine. VISUALIZED UPPER ABDOMEN: Unremarkable. OTHER FINDINGS: None. IMPRESSION: No focal consolidation, significant pleural effusion, or definite pneumothorax identified.
[2018-07-20] MEDS ORDERED: Sodium Chloride 0.9% 1,000 ML IV STA (21:34)
--- NOTE | 2018-07-20 21:49 | CP.PCM.HP ---
History of Present Illness - History of Present Illness History of Present Illness: 53 yo ,f, PMhx/o Bipolar disorder, HTN, HLD, ETOH, CAD, NE x 2, last 2007 present to ED c/o left side chest pain started 2 months ago, worse during the last 7 days, not exertional, reproducible, no pleuritic, not radiated, not associated symptoms. She denies fever, chills, cough, exertional Sob, pedal edema. Patient reports she saw cordwainer today and Holter was placed. On evaluation in Ed patient in not acute distress, hemodynamically stable. PMD: Marleen Mold Filling Operator: Dr Magdaleno PMHx: Bipolar disorder, HTN, HLD, ETOH, CAD, NE x 2, last 2007 Allergies: NKDA MedS: see med rec PSurghx: denies PShx: +ETOH x 5 years 2 drinks daily. Denies rect drugs but on chart has hx/o cocain heroin, cig Present on Admission - Present on Admission Any Indicators Present on Admission: No History of DVT/PE: No History of Uncontrolled Diabetes: No Urinary Catheter: No Decubitus Ulcer Present: No Review of Systems - Review of Systems All systems: reviewed and no additional remarkable complaints except - Cardiovascular Cardiovascular: Chest Pain Past Patient History - Infectious Disease Hx of Infectious Diseases: None - Tetanus Immunizations Tetanus Immunization: Unknown - Past Medical History & Family History Past Medical History?: Yes - Past Social History Alcohol: > 2 Drinks/Day Drugs: Denies - CARDIAC Hx Cardia Arrhythmia: Yes Hx Hypercholesterolemia: Yes Hx Hypertension: Yes - PULMONARY Hx Chronic Obstructive Pulmonary Disease (COPD): Yes Hx Pneumonia: Yes - NEUROLOGICAL Hx Migraine: Yes Hx Seizures: Yes - HEENT Hx HEENT Problems: No - RENAL Hx Chronic Kidney Disease: No - ENDOCRINE/METABOLIC Hx Endocrine Disorders: No - HEMATOLOGICAL/ONCOLOGICAL Hx Anemia: Yes Hx Human Immunodeficiency Virus (HIV): No - INTEGUMENTARY Hx Dermatological Problems: No - MUSCULOSKELETAL/RHEUMATOLOGICAL Hx Fractures: Yes (right wrist due to fall) - GASTROINTESTINAL Hx Gastrointestinal Disorders: No - GENITOURINARY/GYNECOLOGICAL Hx Sexually Transmitted Disorders: No - PSYCHIATRIC Hx Anxiety: Yes Hx Bipolar Disorder: Yes Hx Depression: Yes - SURGICAL HISTORY Hx Cholecystectomy: Yes - ANESTHESIA Hx Anesthesia: Yes Hx Anesthesia Reactions: No Hx Malignant Hyperthermia: No Meds Allergies/Adverse Reactions: Allergies Allergy/AdvReac Type Severity Reaction Status Date / Time FISH Allergy ITCHING Verified 07/20/18 15:49 Penicillins AdvReac URTICARIA Verified 07/20/18 15:49 Physical Exam - Constitutional Appears: Non-toxic, No Acute Distress - Head Exam Head Exam: ATRAUMATIC, NORMOCEPHALIC - Eye Exam Eye Exam: Normal appearance - ENT Exam ENT Exam: Mucous Membranes Moist - Neck Exam Neck exam: Positive for: Normal Inspection - Respiratory Exam Respiratory Exam: Clear to Auscultation Bilateral. absent: Rhonchi, Wheezes - Cardiovascular Exam Cardiovascular Exam: REGULAR RHYTHM, +S1, +S2 - GI/Abdominal Exam GI & Abdominal Exam: Normal Bowel Sounds, Soft. absent: Tenderness - Extremities Exam Extremities exam: Positive for: normal inspection. Negative for: pedal edema - Neurological Exam Neurological exam: Alert, Oriented x3 - Psychiatric Exam Psychiatric exam: Normal Mood - Skin Skin Exam: Intact Results - Vital Signs Recent Vital Signs: Last Vital Signs Temp 96.9 F L 07/20/18 15:55 Pulse 76 07/20/18 20:38 Resp 16 07/20/18 15:55 BP 136/77 07/20/18 15:55 Pulse Ox 95 07/20/18 20:38 - Labs Result Diagrams: 07/20/18 16:30 07/20/18 16:30 Labs: Laboratory Results - last 24 hr 07/20/18 07/20/18 07/20/18 16:30 16:30 18:40 WBC 5.3 RBC 4.10 Hgb 10.5 L Hct 32.5 L MCV 79.2 L D MCH 25.6 L MCHC 32.3 L RDW 20.9 H Plt Count 260 MPV 7.8 Neut % (Auto) 37.0 L Lymph % (Auto) 46.2 H [place] % (Auto) 12.8 H Eos % (Auto) 2.0 Baso % (Auto) 2.0 Neut # (Auto) 2.0 Lymph # (Auto) 2.4 [place] # (Auto) 0.7 Eos # (Auto) 0.1 Baso # (Auto) 0.1 Sodium 127 L Potassium 5.1 H Chloride 94 L Carbon Dioxide 20 L Anion Gap 18 BUN 14 Creatinine 0.6 L Est GFR ( Amer) > 60 Est GFR (Non-Af Amer) > 60 Random Glucose 72 Calcium 8.7 Total Bilirubin 0.4 AST 63 H ALT 14 Alkaline Phosphatase 54 Troponin I < 0.0120 Total Protein 7.9 Albumin 4.3 Globulin 3.6 Albumin/Globulin Ratio 1.2 Alcohol, Quantitative 176 H Assessment & Plan - Assessment and Plan (Free Text) Plan: 53 yo ,f, PMhx/o Bipolar disorder, HTN, HLD, ETOH, CAD, NE x 2, last NE 2007 admitted for chest pain and hyponatremia 1) Chest pain -reproducible,may be costochondritis. -to r/o ACS -hx/o NE x2 -EKG normal, troponin normal -f/u troponin x1 -cordwainer consult suggested 2) Mild Hyponatremia -asymptomatic euvolemic -f/u serum osmolality, urine osmolality, urine lytes -f/u bmp 3) Bipolar disorder c/w home meds 4) HTN -continue with home meds 5) ETOH -chronic -CIWA score 0 -Etoh level high 6) DVT Prophylaxis Lovenox 40 mg sc daily
[2018-07-21 00:34] LABS: BARBITURATES, UR NEGATIVE (NEGATIVE); BENZODIAZEPINES, UR POSITIVE (NEGATIVE); OPIATES, UR NEGATIVE (NEGATIVE); PHENCYCLIDINE, UR NEGATIVE (NEGATIVE)
[2018-07-21 00:57] VITALS: RESP 18
[2018-07-21 05:51] LABS: HEMOGLOBIN 10.6 g/dL (12.0-16.0); MEAN CELL VOLUME 79.9 fl (81.0-99.0); MEAN CORPUSCULAR HEMOGLOBIN 25.6 pg (27.0-31.0); MEAN CORPUSCULAR HGB CONC 32.1 g/dL (33.0-37.0); RBC 4.14 Mil/uL (3.80-5.20); RED CELL DISTRIBUTION WIDTH 21.5 % (11.5-14.5); WHITE BLOOD COUNT 3.6 K/uL (4.8-10.8)
--- NOTE | 2018-07-21 08:34 | CARD ---
APPROVED REPORT Date of service: 07/20/2018 <Conclusion> Normal sinus rhythm Normal ECG
--- NOTE | 2018-07-21 08:39 | CP.PCM.CON ---
History of Present Illness - History of Present Illness History of Present Illness: This 53-year-old female came into the emergency room complaining of left pectoral ache accompanied by tenderness. She has had multiple visits to the emergency room and to the hospital for various reasons over the last couple of years. She reports that this discomfort has been there for approximately 2 months but became worse last evening so she came to the hospital. She gives history of smoking and reports that there has been couple of myocardial infarction in the past. She denies any history of coronary angiography but reports that she was told that she requires bypass surgery. She gives history of having undergone a stress test week back at her care mgr's office. She cannot say what the findings where. She is being treated with a statin and Plavix. She walks approximately 14 blocks to the hospital and back without experiencing any chest pain. She denies any history of diabetes or symptoms of congestive cardiac failure. She has a history of psychiatric illness and has visited the emergency room for it number of times. Physical examination shows a young female who is anxious and being hospitalized and indicates that there is significant tenderness in the left pectoral area where the pain has been. It does not radiate into her jaw or her arms. Moving her left arm does not aggravate this pain. There is no history of trauma to this area. Her heart rate was 74 bpm regular and her blood pressure was 134/74 mmHg. Estimate is were warm and nailbeds were pink. There was no central or peripheral cyanosis. There was no clubbing. The apex was vaguely felt in the face basal first and second heart sounds are normal there was no murmur or gallop there were no rales. Her abdomen was soft and liver and spleen are not palpable. There was tenderness in the left pectoral area. Her electric cart a gram showed sinus rhythm with a normal EKG pattern. Earlier electrocardiograms dating back to last year showed a similar pattern. There were no ST-T abnormalities off myocardial ischemia. 2 sets of cardiac enzymes were normal indicating no evidence of myocyte injury. Her serum sodium level was 127 mEq per liter which was probably related to multiple psychiatric indications the patient took. Impression: Chest wall pain. History of cardiac illness. Her electrocardiogram and her echocardiogram(November of this year) are quite normal without any wall motion abnormality. The patient may be allowed to return home to see her care mgr who sees her on a regular basis. Past Patient History - Infectious Disease Hx of Infectious Diseases: None - Tetanus Immunizations Tetanus Immunization: Unknown - Past Medical History & Family History Past Medical History?: Yes - Past Social History Smoking Status: Former Smoker - CARDIAC Hx Cardia Arrhythmia: Yes Hx Hypercholesterolemia: Yes Hx Hypertension: Yes - PULMONARY Hx Chronic Obstructive Pulmonary Disease (COPD): Yes Hx Pneumonia: Yes - NEUROLOGICAL Hx Migraine: Yes Hx Seizures: Yes - HEENT Hx HEENT Problems: No - RENAL Hx Chronic Kidney Disease: No - ENDOCRINE/METABOLIC Hx Endocrine Disorders: No - HEMATOLOGICAL/ONCOLOGICAL Hx Anemia: Yes Hx Human Immunodeficiency Virus (HIV): No - INTEGUMENTARY Hx Dermatological Problems: No - MUSCULOSKELETAL/RHEUMATOLOGICAL Hx Falls: Yes Hx Fractures: Yes (right wrist due to fall) - GASTROINTESTINAL Hx Gastrointestinal Disorders: No - GENITOURINARY/GYNECOLOGICAL Hx Sexually Transmitted Disorders: No - PSYCHIATRIC Hx Anxiety: Yes Hx Bipolar Disorder: Yes Hx Depression: Yes Hx Substance Use: Yes (coccaine) - SURGICAL HISTORY Hx Cholecystectomy: Yes - ANESTHESIA Hx Anesthesia: Yes Hx Anesthesia Reactions: No Hx Malignant Hyperthermia: No Meds Allergies/Adverse Reactions: Allergies Allergy/AdvReac Type Severity Reaction Status Date / Time FISH Allergy ITCHING Verified 07/20/18 15:49 Penicillins AdvReac URTICARIA Verified 07/20/18 15:49 - Medications Medications: Current Medications Acetaminophen (Tylenol 325mg Tab) 650 mg PO Q6 PRN PRN Reason: Pain, Mild (1-3) Acetaminophen (Tylenol 325mg Tab) 650 mg PO Q6 PRN PRN Reason: Fever >100.4 F Amlodipine Besylate (Norvasc) 10 mg PO DAILY [facility] Aspirin (Ecotrin) 81 mg PO DAILY [facility] Atorvastatin Calcium (Lipitor) 10 mg PO DIN [facility] Clopidogrel Bisulfate (Plavix) 75 mg PO DAILY [facility] Enoxaparin Sodium (Lovenox) 40 mg SC DAILY [facility] PRN Reason: Protocol Gabapentin (Neurontin) 800 mg PO BID [facility] Hydroxyzine HCl (Atarax) 50 mg PO BID PRN PRN Reason: Anxiety Lisinopril (Zestril) 40 mg PO DAILY [facility] Mirtazapine (Remeron) 15 mg PO HS [facility] Last Admin: 07/20/18 23:20 Dose: 15 mg Multivitamins/Minerals (Therapeutic-M Tab) 1 tab PO DAILY [facility] Oxybutynin Chloride (Ditropan Tab) 5 mg PO TID [facility] Trazodone HCl (Desyrel) 150 mg PO HS [facility] Last Admin: 07/20/18 23:21 Dose: 150 mg Venlafaxine HCl (Effexor Xr) 37.5 mg PO DAILY [facility] Results - Vital Signs Recent Vital Signs: Last Vital Signs Temp 97.6 F 07/21/18 07:52 Pulse 65 07/21/18 07:52 Resp 18 07/21/18 07:52 BP 124/74 07/21/18 07:52 Pulse Ox 98 07/21/18 07:52 - Labs Result Diagrams: 07/21/18 05:20 07/20/18 16:30 Labs: Laboratory Results - last 24 hr 07/20/18 07/20/18 07/20/18 16:30 16:30 18:40 WBC 5.3 RBC 4.10 Hgb 10.5 L Hct 32.5 L MCV 79.2 L D MCH 25.6 L MCHC 32.3 L RDW 20.9 H Plt Count 260 MPV 7.8 Neut % (Auto) 37.0 L Lymph % (Auto) 46.2 H [place] % (Auto) 12.8 H Eos % (Auto) 2.0 Baso % (Auto) 2.0 Neut # (Auto) 2.0 Lymph # (Auto) 2.4 [place] # (Auto) 0.7 Eos # (Auto) 0.1 Baso # (Auto) 0.1 Sodium 127 L Potassium 5.1 H Chloride 94 L Carbon Dioxide 20 L Anion Gap 18 BUN 14 Creatinine 0.6 L Est GFR ( Amer) > 60 Est GFR (Non-Af Amer) > 60 Random Glucose 72 Serum Osmolality Calcium 8.7 Total Bilirubin 0.4 AST 63 H ALT 14 Alkaline Phosphatase 54 Troponin I < 0.0120 Total Protein 7.9 Albumin 4.3 Globulin 3.6 Albumin/Globulin Ratio 1.2 Urine Osmolality Ur Random Sodium Ur Random Potassium Urine Opiates Screen Urine Methadone Screen Ur Barbiturates Screen Ur Phencyclidine Scrn Ur Amphetamines Screen U Benzodiazepines Scrn U Oth Cocaine Metabols U Cannabinoids Screen Alcohol, Quantitative 176 H 07/21/18 07/21/18 07/21/18 00:01 00:01 00:01 WBC RBC Hgb Hct MCV MCH MCHC RDW Plt Count MPV Neut % (Auto) Lymph % (Auto) [place] % (Auto) Eos % (Auto) Baso % (Auto) Neut # (Auto) Lymph # (Auto) [place] # (Auto) Eos # (Auto) Baso # (Auto) Sodium Potassium Chloride Carbon Dioxide Anion Gap BUN Creatinine Est GFR ( Amer) Est GFR (Non-Af Amer) Random Glucose Serum Osmolality Calcium Total Bilirubin AST ALT Alkaline Phosphatase Troponin I < 0.0120 Total Protein Albumin Globulin Albumin/Globulin Ratio Urine Osmolality 295 L Ur Random Sodium 14 Ur Random Potassium 33.1 Urine Opiates Screen Negative Urine Methadone Screen Negative Ur Barbiturates Screen Negative Ur Phencyclidine Scrn Negative Ur Amphetamines Screen Negative U Benzodiazepines Scrn Positive U Oth Cocaine Metabols Negative U Cannabinoids Screen Negative Alcohol, Quantitative 07/21/18 07/21/18 00:01 05:20 WBC 3.6 L RBC 4.14 Hgb 10.6 L Hct 33.1 L MCV 79.9 L MCH 25.6 L MCHC 32.1 L RDW 21.5 H Plt Count 215 MPV Neut % (Auto) Lymph % (Auto) [place] % (Auto) Eos % (Auto) Baso % (Auto) Neut # (Auto) Lymph # (Auto) [place] # (Auto) Eos # (Auto) Baso # (Auto) Sodium Potassium Chloride Carbon Dioxide Anion Gap BUN Creatinine Est GFR ( Amer) Est GFR (Non-Af Amer) Random Glucose Serum Osmolality 284 Calcium Total Bilirubin AST ALT Alkaline Phosphatase Troponin I Total Protein Albumin Globulin Albumin/Globulin Ratio Urine Osmolality Ur Random Sodium Ur Random Potassium Urine Opiates Screen Urine Methadone Screen Ur Barbiturates Screen Ur Phencyclidine Scrn Ur Amphetamines Screen U Benzodiazepines Scrn U Oth Cocaine Metabols U Cannabinoids Screen Alcohol, Quantitative
[2018-07-21] MEDS ORDERED: Venlafaxine 37.5 mg ER Cap PO SCH (09:00)
[2018-07-21] MEDS ORDERED: Multivitamin With Minerals Tab PO SCH (09:00)
[2018-07-21] MEDS ORDERED: Enoxaparin 40 mg Syringe SC SCH (09:00)
[2018-07-21 12:05] VITALS: BP 116/76; PULSE 71; TEMP 98; O2SAT 100
[2018-07-21 12:22] LABS: BLOOD UREA NITROGEN 14 mg/dl (7-17); GFR NON-AFRICAN AMERICAN > 60
--- NOTE | 2018-07-21 14:44 | CP.PCM.DIS ---
Provider - Provider Date of Admission: 07/20/18 19:56 Attending physician: Rissa Steward MD Consults: Dr. Elliott Orellana Time Spent in preparation of Discharge (in minutes): 15 Hospital Course - Lab Results Lab Results: Most Recent Lab Values WBC 3.6 K/uL (4.8-10.8) L 07/21/18 05:20 RBC 4.14 Mil/uL (3.80-5.20) 07/21/18 05:20 Hgb 10.6 g/dL (12.0-16.0) L 07/21/18 05:20 Hct 33.1 % (34.0-47.0) L 07/21/18 05:20 MCV 79.9 fl (81.0-99.0) L 07/21/18 05:20 MCH 25.6 pg (27.0-31.0) L 07/21/18 05:20 MCHC 32.1 g/dL (33.0-37.0) L 07/21/18 05:20 RDW 21.5 % (11.5-14.5) H 07/21/18 05:20 Plt Count 215 K/uL (130-400) 07/21/18 05:20 MPV 7.8 fl (7.2-11.7) 07/20/18 16:30 Neut % (Auto) 37.0 % (50.0-75.0) L 07/20/18 16:30 Lymph % (Auto) 46.2 % (20.0-40.0) H 07/20/18 16:30 [place] % (Auto) 12.8 % (0.0-10.0) H 07/20/18 16:30 Eos % (Auto) 2.0 % (0.0-4.0) 07/20/18 16:30 Baso % (Auto) 2.0 % (0.0-2.0) 07/20/18 16:30 Neut # (Auto) 2.0 K/uL (1.8-7.0) 07/20/18 16:30 Lymph # (Auto) 2.4 K/uL (1.0-4.3) 07/20/18 16:30 [place] # (Auto) 0.7 K/uL (0.0-0.8) 07/20/18 16:30 Eos # (Auto) 0.1 K/uL (0.0-0.7) 07/20/18 16:30 Baso # (Auto) 0.1 K/uL (0.0-0.2) 07/20/18 16:30 Sodium 134 mmol/l (132-148) 07/21/18 11:53 Potassium 4.8 MMOL/L (3.6-5.0) 07/21/18 11:53 Chloride 103 mmol/L (98-107) 07/21/18 11:53 Carbon Dioxide 25 mmol/L (22-30) 07/21/18 11:53 Anion Gap 11 (10-20) 07/21/18 11:53 BUN 14 mg/dl (7-17) 07/21/18 11:53 Creatinine 0.6 mg/dl (0.7-1.2) L 07/21/18 11:53 Est GFR ( Amer) > 60 07/21/18 11:53 Est GFR (Non-Af Amer) > 60 07/21/18 11:53 Random Glucose 90 mg/dL (65-105) 07/21/18 11:53 Serum Osmolality 284 mosm/kg (272-300) 07/21/18 00:01 Calcium 9.0 mg/dL (8.4-10.2) 07/21/18 11:53 Total Bilirubin 0.4 mg/dl (0.2-1.3) 07/20/18 16:30 AST 63 U/L (14-36) H 07/20/18 16:30 ALT 14 U/L (9-52) 07/20/18 16:30 Alkaline Phosphatase 54 U/L (38-126) 07/20/18 16:30 Troponin I < 0.0120 ng/mL (0.00-0.120) 07/21/18 11:53 Total Protein 7.9 G/DL (6.3-8.2) 07/20/18 16:30 Albumin 4.3 g/dL (3.5-5.0) 07/20/18 16:30 Globulin 3.6 gm/dL (2.2-3.9) 07/20/18 16:30 Albumin/Globulin Ratio 1.2 (1.0-2.1) 07/20/18 16:30 Urine Osmolality 295 mosm/kg (300-1000) L 07/21/18 00:01 Ur Random Sodium 14 meq/L 07/21/18 00:01 Ur Random Potassium 33.1 mmol/L 07/21/18 00:01 Urine Opiates Screen Negative (NEGATIVE) 07/21/18 00:01 Urine Methadone Screen Negative (NEGATIVE) 07/21/18 00:01 Ur Barbiturates Screen Negative (NEGATIVE) 07/21/18 00:01 Ur Phencyclidine Scrn Negative (NEGATIVE) 07/21/18 00:01 Ur Amphetamines Screen Negative (NEGATIVE) 07/21/18 00:01 U Benzodiazepines Scrn Positive (NEGATIVE) 07/21/18 00:01 U Oth Cocaine Metabols Negative (NEGATIVE) 07/21/18 00:01 U Cannabinoids Screen Negative (NEGATIVE) 07/21/18 00:01 Alcohol, Quantitative 176 mg/dl (0-10) H 07/20/18 16:30 - Hospital Course Hospital Course: Pt is a 53 yo F with a PMHx of HTN, HLD, CAD, FL without intervention in 2007, CVA 2009, Bipolar, Ethanol, Cocaine abuse presented to [facility] on 07/20 with a throbbing L sided chest pain that has been intermittent for the past 2 months, she states over the 7 days it has been worse and constant, denies radiation, non exertional, and non pleurtic. Patient states she went to see her outpt clothes wringer Dr. Magdaleno and he placed a holter molter which she is wearing in the ED, patient states she had a stress test done 2 weeks ago pending results. Patient also has mild hyponatremia. Troponins x3, EKG, CXR, Utox all negative, RADHA 176. Cardiology was consulted- Dr. Alejandro Orellana. Today patient states shes still has chest pain described as reproducible only on palpation, denies nausea , vomiting, diarrhea, constipation, SOB. Patient tolerating oral intake, hemodynamically stable, hyponatremia resolved. Patient is stable for discharge, advised her that her pain may be due to costochondritis to take Naproxen and to follow up with primary clothes wringer as outpt for results of echo, stress test and further management. 1) Angina R/o FL, stable vs unstable -EKG, troponin x3, CXR normal -clothes wringer consulted- Dr. Rodney Orellana -Echo performed -Possibly due to costochondritis advised patient to take Naproxen 400mg as outpt -Pt may be D/C today follow up with Primary clothes wringer as outpt 2) Mild Hyponatremia -Corrected, was 127 now 134 3) Bipolar disorder - Resume home meds 4) HTN -controlled 116/76 -Resume home meds 5) ETOH abuse -chronic -CIWA score 0 -[id number] - Date & Time of H&P Date of H&P: 07/20/18 Time of H&P: 21:49 Discharge Exam - Head Exam Head Exam: ATRAUMATIC, NORMAL INSPECTION, NORMOCEPHALIC - Eye Exam Eye Exam: EOMI, Normal appearance, PERRL - ENT Exam ENT Exam: Mucous Membranes Dry, Mucous Membranes Moist - Respiratory Exam Respiratory Exam: Chest Wall Tenderness, Clear to PA & Lateral, NORMAL BREATHING PATTERN Additional comments: Tenderness to palpation R and L lateral sternum, R sided bruise noted on R chest , wearing a holter monitor - Cardiovascular Exam Cardiovascular Exam: REGULAR RHYTHM, RRR, +S1, +S2 - GI/Abdominal Exam GI & Abdominal Exam: Normal Bowel Sounds, Unremarkable - Extremities Exam Extremities exam: normal inspection - Neurological Exam Neurological exam: Alert, Oriented x3 - Psychiatric Exam Psychiatric exam: Normal Mood - Skin Skin Exam: Warm Discharge Plan - Follow Up Plan Condition: STABLE Disposition: HOME/ ROUTINE Patient education suggested?: Yes Referrals: [facility] [Provider Group]
--- NOTE | 2018-07-21 18:51 | CARD ---
APPROVED REPORT Date of service: 07/21/2018 EXAM: Two-dimensional and M-mode echocardiogram with Doppler and color Doppler. Other Information Quality : GoodRhythm : NSR INDICATION Chest Pain 2D DIMENSIONS IVSd1.13 (0.7-1.1cm)LVDd3.65 (3.9-5.9cm) LVOT Diameter1.88 (1.8-2.4cm)PWd1.00 (0.7-1.1cm) IVSs1.47 (0.8-1.2cm)LVDs2.17 (2.5-4.0cm) FS (%) 40.6 %PWs1.16 (0.8-1.2cm) M-Mode DIMENSIONS Left Atrium (MM)4.16 (2.5-4.0cm)IVSd0.91 (0.7-1.1cm) Aortic Root2.54 (2.2-3.7cm)LVDd5.13 (4.0-5.6cm) Aortic Cusp Exc.1.85 (1.5-2.0cm)IVSs1.88 cm FS (%) 53 %LVDs2.43 (2.0-3.8cm) PWs1.65 cm Aortic Valve AoV Peak Vredxjkt005.4cm/sAoV VTI28.6cmAO Peak GR.10mmHg LVOT Peak Hfgsoegd090.3cm/sLVOT VTI24.42cmAO Mean GR.5mmHg Mitral Valve MV E Ggmmssut86.2cm/sMV DECEL NVGX327glLO A Hhbldcgo67.2cm/s MV SZR24uzP/A ratio0.8MVA (PHT)2.29cm2 TDI Lateral E' Peak V11.08cm/sMedial E' Peak V5.30cm/sE/Lateral E'4.4 E/Medial E'9.1 LEFT VENTRICLE The left ventricle is normal size. There is normal left ventricular wall thickness. The left ventricular systolic function is normal. The estimated ejection fraction is 70% No regional wall motion abnormalities noted.. Transmitral Doppler flow pattern is Grade I-abnormal relaxation pattern. No left ventricle thrombus noted on this study. There is no ventricular septal defect visualized. There is no mass noted in the left ventricle. RIGHT VENTRICLE The right ventricle is normal size. There is normal right ventricular wall thickness. The right ventricular systolic function is normal. ATRIA The left atrium size is mildly dilated The right atrium size is normal. The interatrial septum is intact with no evidence for an atrial septal defect. AORTIC VALVE The aortic valve is normal in structure. No aortic regurgitation is present. There is no aortic valvular stenosis. MITRAL VALVE The mitral valve is normal in structure. There is no mitral valve stenosis. There is no mitral valve regurgitation noted. TRICUSPID VALVE The tricuspid valve is normal in structure. There is no tricuspid valve regurgitation noted. PULMONIC VALVE The pulmonary valve is normal in structure. There is no pulmonic valvular regurgitation. GREAT VESSELS The aortic root is normal in size. The ascending aorta is normal in size. The pulmonary artery is normal. The IVC is normal in size and collapses >50% with inspiration. PERICARDIAL EFFUSION There is no pericardial effusion. <Conclusion> Dilated left atrium Normal LV systolic function with doppler hemodynamics consistent with abnormal relaxation The estimated ejection fraction is 70%
== END 2018-07-21 15:21 | disposition home or self-care (01) ==
LOC: H.ER 15:45 → H.ERHOLD 19:56 → H.TEL 07-21 00:53
PROVIDERS: ADMIT Internal Medicine; ATTEND Internal Medicine
DX: I25.119 Atherosclerotic heart disease of native coronary artery with unspecified angina pectoris (principal); E78.5 Hyperlipidemia, unspecified; E78.00 Pure hypercholesterolemia, unspecified; Z88.0 Allergy status to penicillin; Z91.013 Allergy to seafood; F31.9 Bipolar disorder, unspecified; I10 Essential (primary) hypertension; I25.2 Old myocardial infarction; F41.9 Anxiety disorder, unspecified; J44.9 Chronic obstructive pulmonary disease, unspecified; G43.909 Migraine, unspecified, not intractable, without status migrainosus; F60.9 Personality disorder, unspecified; E87.1 Hypo-osmolality and hyponatremia; Z87.891 Personal history of nicotine dependence; F10.10 Alcohol abuse, uncomplicated; Y90.6 Blood alcohol level of 120-199 mg/100 ml
CPT/HCPCS: 71046; 80048; 80053; 80320; 80324; 80345; 80346; 80349; 80353; 80358; 80361; 82436; 83930; 83935; 83992; 84132; 84300; 84484; 85025; 85027; 93005; 93306; 99284; G0378; J1650; J7030

== ENCOUNTER 2018-09-05 10:02 | Emergency (ER) | payer MEDICAID ==
[2018-09-05 10:03] VITALS: BMI 20.7
[2018-09-05] MEDS ORDERED: Sodium Chloride 0.9% 1,000 ML IV STA (10:45)
[2018-09-05] MEDS ORDERED: Iohexol 240 (50 ml) PO ONE (10:45)
--- NOTE | 2018-09-05 10:50 | ED PDOC ---
HPI: General Adult Time Seen by Provider: 09/05/18 10:24 Chief Complaint (Provider): Abd pain History Per: Patient History/Exam Limitations: no limitations Onset/Duration Of Symptoms: Days (3) Additional Complaint(s): Pt. with abd pain mid diffuse, left low back pain, chest pain mild constant, cough, nasal congestion, runny nose, bloating in abd, nausea, vomit, and diarrhea (nonbloody) for 3 days. Pt. states no numbness, tingles, dysuria, dyspnea, incontinence, constipation. PCP: Dr. Hawley. Past Medical History Vital Signs: Last Vital Signs Temp 97.8 F 09/05/18 10:11 Pulse 79 09/05/18 10:11 Resp 20 09/05/18 10:11 BP 158/78 H 09/05/18 10:11 Pulse Ox 98 09/05/18 10:11 - Medical History PMH: Anemia, Anxiety, Bipolar Disorder, CAD, Cardia Arrhythmia, COPD, Depression, Fractures (right wrist due to fall), HTN, Hypercholesterolemia, Migraine, Personality Disorder, Pneumonia, Seizures Denies: Diabetes, Hepatitis, HIV, Chronic Kidney Disease, Sexually Transmitted Disease - Surgical History Surgical History: Cholecystectomy - Family History Family History: States: Unknown Family Hx - Social History Current smoker - smoking cessation education provided: No Alcohol: > 2 Drinks/Day Drugs: Denies - Immunization History Hx Tetanus Toxoid Vaccination: (unk) Hx Influenza Vaccination: No Hx Pneumococcal Vaccination: Yes - Home Medications Home Medications: Ambulatory Orders Medication Instructions Recorded Atorvastatin [Lipitor] 10 mg PO DIN #30 tab 09/19/17 Multivitamin [Multi-Vitamin Daily] 1 tab PO DAILY 12/08/17 Venlafaxine [Effexor XR] 37.5 mg PO DAILY 12/08/17 Aspirin [Ecotrin] 81 mg PO DAILY tabec 12/10/17 Lisinopril [Zestril] 40 mg PO DAILY #30 tab 12/27/17 Clopidogrel [Plavix] 75 mg PO DAILY #30 tab 04/24/18 Mirtazapine [Remeron] 15 mg PO HS #30 tab 04/24/18 Naltrexone [Revia] 50 mg PO DAILY #30 tab 04/24/18 Oxybutynin [Ditropan Tab] 5 mg PO TID #90 tab 04/24/18 hydrOXYzine HCl [Atarax] 50 mg PO BID PRN #30 tab 04/24/18 Gabapentin [Neurontin] 800 mg PO BID #60 cap 05/26/18 amLODIPine [Norvasc] 10 mg PO DAILY #30 tab 05/26/18 traZODone [Desyrel] 150 mg PO HS tab 05/26/18 - Allergies Allergies/Adverse Reactions: Allergies Allergy/AdvReac Type Severity Reaction Status Date / Time FISH Allergy SWELLING Verified 08/09/18 10:19 Penicillins Allergy SWELLING Verified 08/09/18 10:19 Review of Systems ROS Statement: Except As Marked, All Systems Reviewed And Found Negative ENT: Positive for: Nose Pain, Nose Discharge, Nose Congestion Cardiovascular: Positive for: Chest Pain Respiratory: Positive for: Cough, Sputum Gastrointestinal: Positive for: Nausea, Vomiting, Abdominal Pain, Diarrhea Genitourinary Female: Negative for: Dysuria Musculoskeletal: Negative for: Neck Pain Neurological: Positive for: Headache (mild, not worst in her life) Physical Exam - Reviewed Nursing Documentation Reviewed: Yes Vital Signs Reviewed: Yes - Physical Exam Appears: Positive for: Non-toxic, No Acute Distress Head Exam: Positive for: ATRAUMATIC, NORMAL INSPECTION, NORMOCEPHALIC Skin: Positive for: Normal Color, Warm, DRY Eye Exam: Positive for: EOMI, Normal appearance, PERRL ENT: Positive for: Nasal Congestion. Negative for: Pharyngeal Erythema, Tonsillar Exudate Neck: Positive for: Normal, Painless ROM, Supple Cardiovascular/Chest: Positive for: Regular Rate, Rhythm Respiratory: Positive for: CNT, Normal Breath Sounds Gastrointestinal/Abdominal: Positive for: Normal Exam, Soft, Tenderness (mild diffuse) Back: Positive for: Normal Inspection. Negative for: L CVA Tenderness, R CVA Tenderness Extremity: Positive for: Normal ROM. Negative for: Tenderness, Pedal Edema Neurologic/Psych: Positive for: Alert, turntable engineer II-XII, Oriented. Negative for: Motor/Sensory Deficits, Aphasia, Facial Droop - Laboratory Results Result Diagrams: 09/05/18 11:20 09/05/18 13:15 Interpretation Of Abn Labs: elevated alcohol level - ECG ECG: Positive for: Interpreted By Me, Viewed By Me ECG Rhythm: Positive for: Normal QRS, Normal ST Segment, Sinus Rhythm O2 Sat by Pulse Oximetry: 98 Pulse Ox Interpretation: Normal - Radiology X-Ray: Read By Radiologist X-Ray Interpretation: No Acute Disease - CT Scan/US ct Other Rad Studies (CT/US): Read By Radiologist Other Rad Interpretation: t10 fx; and gallstones - Progress ED Course And Treament: 1510: Stable. AAOx3. Pain free. Tolerated PO. 07/21/[address] Orellana saw pt. Was cleared from a cardiac point of view at that time. 1527: Neurosurgery paged for t10 fx; ultrasound for gallstones. 1543: Stable. Neurosurgery reviewed images and states nothing to do the fx. Can be dc. 1545: Dr. Arriaga to fu on US for gall bladder. Disposition - Clinical Impression Clinical Impression: Gallstone, Thoracic vertebral fracture - Patient ED Disposition Is Patient to be Admitted: Transfer of Care - Disposition Disposition Time: 15:45 Condition: STABLE Patient Signed Over To: Loly Arriaga
[2018-09-05 11:46] LABS: PARTIAL THROMBOPLASTIN TIME 32.6 Seconds (25.6-37.1)
[2018-09-05] MEDS ORDERED: Iohexol 240 (50 ml) ONE (11:51)
[2018-09-05 12:13] LABS: BASO % 0.6 % (0.0-2.0); EOS # 0.2 K/uL (0.0-0.7); EOS % 3.3 % (0.0-4.0); HEMOGLOBIN 11.6 g/dL (12.0-16.0); LYMPH # 1.6 K/uL (1.0-4.3); LYMPH % 24.2 % (20.0-40.0); MEAN CELL VOLUME 82.7 fl (81.0-99.0); MEAN CORPUSCULAR HEMOGLOBIN 27.7 pg (27.0-31.0); MEAN CORPUSCULAR HGB CONC 33.5 g/dL (33.0-37.0); MEAN PLATELET VOLUME 7.9 fl (7.2-11.7); MONO # 0.8 K/uL (0.0-0.8); MONO % 11.5 % (0.0-10.0); NEUT # 4.1 K/uL (1.8-7.0); NEUT % 60.4 % (50.0-75.0); NRBC % 0.6 % (0.0-0.0); RBC 4.21 Mil/uL (3.80-5.20); RED CELL DISTRIBUTION WIDTH 20.9 % (11.5-14.5)
[2018-09-05 12:16] LABS: WHITE BLOOD COUNT 6.8 K/uL (4.8-10.8)
[2018-09-05 13:43] LABS: ALB/GLOB RATIO 1.1 (1.0-2.1); ALBUMIN 3.7 g/dL (3.5-5.0); ALT/SGPT 53 U/L (9-52); AST/SGOT 93 U/L (14-36); BLOOD UREA NITROGEN 4 mg/dl (7-17); CALCIUM 8.8 mg/dL (8.4-10.2); GFR NON-AFRICAN AMERICAN > 60; LIPASE 112 U/L (23-300)
--- NOTE | 2018-09-05 13:48 | RAD ---
Date of service: 09/05/2018 HISTORY: dyspnea COMPARISON: 07/20/2018. FINDINGS: LUNGS: No active pulmonary disease. PLEURA: No significant pleural effusion identified, no pneumothorax apparent. CARDIOVASCULAR: No radiographic findings to suggest acute or significant cardiovascular disease. OSSEOUS STRUCTURES: No significant abnormalities. VISUALIZED UPPER ABDOMEN: Normal. OTHER FINDINGS: None. IMPRESSION: No active disease. No significant interval change compared to the prior examination(s).
[2018-09-05] MEDS ORDERED: Sodium Chloride 0.9% 50 ML IV ONE (14:00)
[2018-09-05] MEDS ORDERED: Iohexol 300 100 ML IJ ONE (14:00)
--- NOTE | 2018-09-05 15:11 | CT ---
Date of service: 09/05/2018 PROCEDURE: CT Abdomen and Pelvis with contrast HISTORY: abd pain COMPARISON: None. TECHNIQUE: Following oral and intravenous contrast administration, a CT examination of the abdomen and pelvis performed from the domes of the diaphragms to the symphysis pubis with reformatted datasets provided not only axial but also sagittal and coronal series. Coronal and sagittal reformats were generated. contrast dose: Omnipaque 300, 95 cc Radiation dose: Total exam DLP = 598.40 mGy-cm. This CT exam was performed using one or more of the following dose reduction techniques: Automated exposure control, adjustment of the mA and/or kV according to patient size, and/or use of iterative reconstruction technique. FINDINGS: LOWER THORAX: Trace fibrosis or dependent atelectasis in the right lower lobe. Mild hiatal hernia identified. LIVER: Peripheral lobular changes are more apparent at the inferior than superior liver segments suspicious for cirrhosis GALLBLADDER AND BILE DUCTS: Limited cholelithiasis is identified within a nondistended otherwise unremarkable appearing gallbladder. CBD appears normal caliber overall, though upper limits normal caliber proximally. PANCREAS: Unremarkable. No gross lesion or ductal dilatation. SPLEEN: Unremarkable. ADRENALS: Unremarkable. No mass. KIDNEYS AND URETERS: Unremarkable. No hydronephrosis. No solid mass. VASCULATURE: Unremarkable. No aortic aneurysm. BOWEL: Stomach is collapsed. Small bowel loops appear diffusely unremarkable. [id number] retained fecal material is seen at the proximal half of the large bowel with limited residual at the distal half. No bowel obstruction or local pericolic or perienteric edema noted. APPENDIX: Normal appendix. PERITONEUM: Unremarkable. Trace fluid is seen in the upper cul-de-sac the pelvis. No prominent ascites. No free air. LYMPH NODES: Unremarkable. No enlarged lymph nodes. BLADDER: Prominent is distention of the urinary bladder is appreciated with a thin smooth wall. No radiodense urolithiasis in the bladder. REPRODUCTIVE: Unremarkable. BONES: Mild anterior wedge compression fracture of T10 of indeterminate age with the remaining visualized thoracolumbar spine unremarkable otherwise. OTHER FINDINGS: None. IMPRESSION: 1. No definite acute abdominal findings. 2. Cirrhotic liver appreciate without gross varices formation. No definitive hepatic mass identified. 3. Limited cholelithiasis within only mildly distended gallbladder. 4. Trace cul-de-sac fluid of uncertain origin. No cystic or solid adnexal mass appreciable bilaterally. 5. Distended urinary bladder. 6. Mild anterior wedge compression fracture T10, indeterminate age.
--- NOTE | 2018-09-05 15:46 | CARD ---
APPROVED REPORT Date of service: 09/05/2018 EKG Measurement Heart [id number] <Conclusion> Normal sinus rhythm Normal ECG
--- NOTE | 2018-09-05 16:21 | ED PDOC ---
- Laboratory Results Result Diagrams: 09/05/18 11:20 09/05/18 13:15 - ECG O2 Sat by Pulse Oximetry: 98 (RA) Pulse Ox Interpretation: Normal - Progress Re-evaluation Time: 17:40 Condition: Re-examined, Improved Medical Decision Making Medical Decision Makin Patient endorsed by Dr. Alexandra pending gallbladder US and final disposition. 1624 Abdomen US FINDINGS: LIVER: Measures 18.5 cm in length. Heterogeneous echogenicity of the liver parenchyma. No definitive mass. No intrahepatic bile duct dilatation. Chronic pattern is better seen in prior CT performed earlier the on 09/05/2018 and the current sonographic images. GALLBLADDER: Cholelithiasis identified within the gallbladder which is partially contracted. No pericholecystic fluid collection is evident however the gallbladder wall appears upper limits normal thickness. No sonographic Lugo sign is reported. COMMON BILE DUCT: Measures 4.0 mm. No stones. No dilatation. PANCREAS: The tail of the pancreas is obscured by overlying bowel gas with remainder unremarkable. RIGHT KIDNEY: Measures 10.1 cm in length. Normal echogenicity. No calculus, mass, or hydronephrosis. AORTA: No aneurysmal dilatation. IVC: Unremarkable. OTHER FINDINGS: None . IMPRESSION: Heterogeneous hepatic parenchyma likely corresponds to cirrhotic liver pattern although cirrhosis nodular changes are better seen in the CT also performed 09/05/2018 and the current ultrasound exam. Cholelithiasis. Normal caliber CBD. The pancreas is obscured by overlying bowel gas with remainder unremarkable. Scribe Attestation: Documented by Carla Donnelly, acting as a scribe for Loly Arriaga MD. Provider Scribe Attestation: All medical record entries made by the Scribe were at my direction and personally dictated by me. I have reviewed the chart and agree that the record accurately reflects my personal performance of the history, physical exam, medical decision making, and the department course for this patient. I have also personally directed, reviewed, and agree with the discharge instructions and disposition. Disposition Doctor Will See Patient In The: Office Counseled Patient/Family Regarding: Studies Performed, Diagnosis, Need For Followup - Clinical Impression Clinical Impression: Gallstone, Thoracic vertebral fracture, Liver cirrhosis - POA Present On Arrival: None - Disposition Referrals: Dudley Richardson MD, PhD [Staff Provider] - Lobo Martinez MD [Staff Provider] - Devante Hawley MD [Family Provider] - Ken Ghotra MD [Staff Provider] - Disposition: Routine/Home Disposition Time: 17:46 Condition: GOOD Additional Instructions: KENDRICK SINGH, thank you for letting us take care of you today. Your provider was Loly Arriaga MD and you were treated for BACK PAIN. The emergency medical care you received today was directed at your acute symptoms. If you were prescribed any medication, please fill it and take as directed. It may take several days for your symptoms to resolve. Return to the Emergency Department if your symptoms worsen, do not improve, or if you have any other problems. Please contact your doctor or call one of the physicians/clinics you have been referred to that are listed on the Patient Visit Information form that is included in your discharge packet. Bring any paperwork you were given at discharge with you along with any medications you are taking to your follow up visit. Our treatment cannot replace ongoing medical care by a primary care provider outside of the emergency department. Thank you for allowing the [facility] team to be part of your care today. If you had an X-Ray or CT scan: A Radiologist will review the ED reading if any change in treatment is needed we will contact you. If you had a blood, urine, or wound culture: It will take several days for the results, if any change in treatment is needed we will contact you. If you had an STI test: It will take 48 hours for the results. Please call after 1 week if you have not heard back. Prescriptions: RX: Naproxen 500 mg PO BID #20 tab Instructions: Gallstones, Cirrhosis, Vertebral Compression Fracture (DC)
--- NOTE | 2018-09-05 16:27 | US ---
Date of service: 09/05/2018 HISTORY: gallstones. eval for pain COMPARISON: Abdomen pelvis CT with contrast at 10:16 18. TECHNIQUE: Sonographic evaluation of the right upper quadrant of the abdomen. FINDINGS: LIVER: Measures 18.5 cm in length. Heterogeneous echogenicity of the liver parenchyma. No definitive mass. No intrahepatic bile duct dilatation. Chronic pattern is better seen in prior CT performed earlier the on 09/05/2018 and the current sonographic images. GALLBLADDER: Cholelithiasis identified within the gallbladder which is partially contracted. No pericholecystic fluid collection is evident however the gallbladder wall appears upper limits normal thickness. No sonographic Lugo sign is reported. COMMON BILE DUCT: Measures 4.0 mm. No stones. No dilatation. PANCREAS: The tail of the pancreas is obscured by overlying bowel gas with remainder unremarkable. RIGHT KIDNEY: Measures 10.1 cm in length. Normal echogenicity. No calculus, mass, or hydronephrosis. AORTA: No aneurysmal dilatation. IVC: Unremarkable. OTHER FINDINGS: None . IMPRESSION: Heterogeneous hepatic parenchyma likely corresponds to cirrhotic liver pattern although cirrhosis nodular changes are better seen in the CT also performed 09/05/2018 and the current ultrasound exam. Cholelithiasis. Normal caliber CBD. The pancreas is obscured by overlying bowel gas with remainder unremarkable.
[2018-09-05 18:25] VITALS: BP 140/80; PULSE 89; RESP 18; TEMP 98
[2018-09-05 18:58] VITALS: O2SAT 98
== END 2018-09-05 18:25 | disposition home or self-care (01) ==
LOC: H.ER 10:02
DX: K80.20 Calculus of gallbladder without cholecystitis without obstruction (principal); K74.60 Unspecified cirrhosis of liver; M48.54XA Collapsed vertebra, not elsewhere classified, thoracic region, initial encounter for fracture; E78.00 Pure hypercholesterolemia, unspecified; I25.10 Atherosclerotic heart disease of native coronary artery without angina pectoris; Z88.0 Allergy status to penicillin
CPT/HCPCS: 71045; 74177; 76705; 80053; 80320; 82948; 83690; 84484; 85025; 85610; 85730; 87804; 93005; 96361; 96374; 96375; 99284; J2405; J7030; Q9966; Q9967